=== PATIENT | female | born 1960 | race Caucasian/White ===

== ENCOUNTER 2016-09-25 08:02 | Emergency (ER) | payer MEDICARE, MEDICAID ==
--- NOTE | 2016-09-25 09:10 | ED ---
Complex/Multi-Sys Presentation - HPI Summary HPI Summary: Pt BRANT. States she was sitting in her living room after eating breakfast (food + 1 c coffee which is normal for her) and she all of a sudden felt anxious and confused. Noticed her fall alert necklace was asking her if she was okay and if she needed help. She denies pressing a button to summon this inquiry and denies falling or finding herself on the floor. She's not clear about following the events but believes the fall alert service called an ambulance for her as they showed up at her house shortly after. States she feels fine at this time - no pain, no LEY, no inabilities. Asked about her mental health issues and she reports she has bipolar d/o and depression - typically has depressive sx if she has any - denies h/o anxiety and has never felt this way before. Denies recent fall ,head injury. No known h/o seizures. When asked what she takes for MH issues, she reports effexor and abilify but denies depakote, lithium. Has had a cold past few days. Cough w/ production from PND - worse at night and has been disturbing her sleep. Denies fever, chills, ST, otalgia, rhinorrhea, N/ V/D, ab pain, CP, SOB. Tried some OTC cold medicine (orange liquid - not sure of name). Has taken this past couple of days w/o much relief. - History Of Current Complaint Chief Complaint: EDPsychosocial Time Seen by Provider: 09/25/16 08:22 Hx Obtained From: Patient - Allergies/Home Medications Allergies/Adverse Reactions: Allergies Allergy/AdvReac Type Severity Reaction Status Date / Time Bee Venom Allergy Hives Verified 12/29/14 15:54 KIWI Allergy SCRATCHY Uncoded 12/29/14 15:54 THROAT, RUNNY NOSE AND THROAT PMH/Surg Hx/FS Hx/Imm Hx Previously Healthy: No - reports "cold" sx past few days Endocrine/Hematology History: Reports: Hx Anemia - ON SUPPLEMENTS FOR Denies: Hx Anticoagulant Therapy, Hx Blood Disorders, Hx Blood Transfusions, Hx Diabetes, Hx Thyroid Disease, Hx Unexplained Bleeding Cardiovascular History: Denies: Hx Aneurysm, Hx Atrial Fibrillation, Hx Hypertension, Hx Myocardial Infarction, Hx Pacemaker/ICD Respiratory History: Reports: Hx Sleep Apnea - HAS A CPAP MACHINE BUT IS NOT USING IT AT THIS TIME- STATES NEEDS A CORD Denies: Hx Asthma, Hx Chronic Obstructive Pulmonary Disease (COPD) History: Denies: Hx Renal Disease Musculoskeletal History: Reports: Hx Arthritis - BOTH KNEE - tx'd w/ naproxen Sensory History: Reports: Hx Contacts or Glasses - GLASSES Denies: Hx Hearing Aid Opthamlomology History: Reports: Hx Contacts or Glasses - GLASSES Neurological History: Denies: Hx Dementia, Hx Seizures Psychiatric History: Reports: Hx Anxiety - ON MEDICATION FOR, Hx Depression - ON MEDICATION FOR Denies: Hx Panic Disorder, Hx Substance Abuse - Surgical History Surgery Procedure, Year, and Place: LEFT KNEE MENISCUS REPAIR- [facility] Hx Anesthesia Reactions: No Infectious Disease History: Denies: Hx Hepatitis, Hx Human Immunodeficiency Virus (HIV), Traveled Outside the [place] in Last 30 Days - Family History Known Family History: Positive: None - Social History Occupation: Unemployed Lives: Alone Alcohol Use: None Hx Substance Use: No Substance Use Type: Reports: None Hx Tobacco Use: No Smoking Status (MU): Never Smoked Tobacco Review of Systems Negative: Fever, Chills Negative: Photophobia, Blurred Vision, Diplopia, Drainage, Erythema ENT: Other - see HPI Negative: Palpitations, Chest Pain Negative: Shortness Of Breath, Cough Negative: Abdominal Pain, Vomiting, Diarrhea, Nausea Positive: no symptoms reported Musculoskeletal: Negative Skin: Negative Neurological: Other - see HPI Psychological: Other - see HPI All Other Systems Reviewed And Are Negative: Yes Physical Exam Triage Information Reviewed: Yes Vital Signs On Initial Exam: Initial Vitals Temp Pulse Resp BP Pulse Ox 99.8 F 83 16 120/68 97 09/25/16 08:05 09/25/16 08:05 09/25/16 08:05 09/25/16 08:05 09/25/16 08:05 Vital Signs Reviewed: Yes Appearance: Positive: Well-Appearing - staring in one direction for long periods w/o blinking - takes a few seconds to respond each time a questions is asked; flat affect, No Pain Distress, Well-Nourished Skin: Positive: Warm, Dry - no jocelyne signs of trauma (ie. ecchymosis, abrasion, erythema) Head/Face: Positive: Normal Head/Face Inspection - NTTP, no gross deformity Eyes: Positive: EOMI, LYNDSEY, Conjunctiva Clear ENT: Positive: Normal ENT inspection, Hearing grossly normal, Pharynx normal, TMs normal. Negative: Nasal congestion, Nasal drainage Dental: Negative: Gross Decay/Caries @, Abscess @ Neck: Positive: Supple, Nontender, No Lymphadenopathy Respiratory/Lung Sounds: Positive: Clear to Auscultation, Breath Sounds Present. Negative: Rales, Rhonchi, Stridor, Wheezes Cardiovascular: Positive: Normal, RRR, Pulses are Symmetrical in both Upper and Lower Extremities, S1, S2. Negative: Murmur, Rub, Leg Edema Left, Leg Edema Right Abdomen Description: Positive: Nontender, No Organomegaly, Soft Bowel Sounds: Positive: Present Psychiatric: Positive: Other - see GENERAL for details Diagnostics - Vital Signs Vital Signs Temp Pulse Resp BP Pulse Ox 09/25/16 08:20 81 94 09/25/16 08:19 121/70 09/25/16 08:05 99.8 F 83 16 120/68 97 - Laboratory Result Diagrams: 09/25/16 09:30 09/25/16 09:30 Lab Statement: Any lab studies that have been ordered have been reviewed, and results considered in the medical decision making process. Re-Evaluation - Re-Evaluation First Eval Change: Worse - pt got up to use bedside comode, returned to bed and then per nurse, could not respond verbally nor w/ physical commands - CT brain w/o was ordered STAT and neurology called - after reviewing case, Dr. Rodríguez declined calling a janae de jesus, offered trying 1mg ativan, add a CTA head and neck and stated he would be into the hospital in about 1 hour to see the pt. Phone call @ 9:17am. Agreed to call sooner if any changes for the worse. Second Eval Change: Improved - w/o medication, pt's verbal abilities to communicate returned at 9:31am. She reports recalling requests and asked what a "code de jesus" was as she heard us discussing this. Admits she felt "out of it". Presents w/ more energy, improved affect, responding quicker and laughing at times (almost giddy). Reviewed w/ neurology who is not concerned about CVA, TIA or seizure. Requested MH eval which Dr. Rodríguez, Dr. Gutierrez and myself agree is next best step. Complex Multi-Symp Course/Dx Course Of Treatment: EEG in 2014 reveals abnormal slow intermittent activity B/ L and symmetrically w/o focal epileptiform discharges. MRI in 2014 - empty sella otherwise normal. Noted h/o staring episodes. Neuro eval by Dr. Rodríguez does not believe pt is having CVA, TIA nor seizure - psych eval performed - pt may be having catatonic episodes of unknown origin - a topiramate level has been drawn and results pending although she does not appear to have topamax toxicity w/ improved neurological state within visit. Other subtances on tox screen normal. Pt to be d/c'd home w/ supervision of daughter over the weekend and close f/u w/ psych on Tuesday. Gave pt and daughter danger s/sx of when to return to ED. - Diagnoses Provider Diagnoses: Altered mental status, unspecified, URI (upper respiratory infection) - Physician Notifications Discussed Care Of Patient With: Dr. Gutierrez. Dr. Rodríguez (see notes for details ). Lelo - personnel research scientist - expressed concerns about return to home alone with having episodes of confusion and administering her own meds as she could potentially unintentianally overdose. MH personnel research scientist hears concerns and will try to contact family member for collateral. Discharge - Discharge Plan Condition: Stable Disposition: HOME Patient Education Materials: Upper Respiratory Infection (ED), Altered Mental Status (ED) Referrals: Miguel MALLORY,Lisa Flores [Medical Doctor] - Ronaldo Joseph MD [Primary Care Provider] - Additional Instructions: Your altered neurological status today was not clearly identified with tests today. However, a stroke and seizure were ruled out. It is important that you follow-up with your psychiatrist for further evaluation this week. Call Tuesday to schedule an appointment. A topamax level was assessed today - review results with psychiatrist next week. *If you develop loss of consciousness, difficulty breathing, chest pain, loss of bowels/bladder, fever, weakness, unexplained pain, choking/difficulty swallowing, change in vision, head injury or any traumatic injury, return to ED
[2016-09-25] MEDS ORDERED: LORazepam INJ* 2 MG/ML 1 ML VIAL IV PUSH ONE (09:19)
--- NOTE | 2016-09-25 09:26 | RAD ---
HISTORY: Unresponsive, anxiety COMPARISONS: MRI of the brain dated February 01, 2014 TECHNIQUE: Multiple contiguous axial CT scans were obtained of the head without intravenous contrast. FINDINGS: HEMORRHAGE/INFARCT: There is no hemorrhage or acute infarct. MASSES/SHIFT: There is no mass or shift. EXTRA-AXIAL SPACES: There are no extra-axial fluid collections. SULCI AND VENTRICLES: The sulci and ventricles are normal in size and position for the patient's stated age. CEREBRUM: There are no focal parenchymal abnormalities. BRAINSTEM: There are no focal parenchymal abnormalities. CEREBELLUM: There are no focal parenchymal abnormalities. VESSELS: The vessels are grossly normal. PARANASAL SINUSES: The paranasal sinuses are clear. ORBITS: The orbits are unremarkable. BONES AND SOFT TISSUE: No bone or soft tissue abnormalities are noted. OTHER: None IMPRESSION: NO ACUTE INTRACRANIAL PATHOLOGY.
[2016-09-25 09:35] LABS: Urine Bilirubin Negative (Negative); Urine Glucose Negative (Negative); Urine Nitrite Negative (Negative)
[2016-09-25 09:49] LABS: Hematocrit 40 % (35-47); Hemoglobin 13.2 g/dl (12.0-16.0); Mean Corpuscular HGB Conc 33 g/dl (31-36); Mean Corpuscular Hemoglobin 27 pg (27-31); Mean Corpuscular Volume 83 fL (80-97); Mean Platelet Volume 7 um3 (7.4-10.4); Red Blood Count 4.83 10^6/ul (4.0-5.4); Red Cell Distribution Width 14 % (10.5-15)
[2016-09-25 09:55] LABS: Benzodiazepine Urine Screen None Detected (None Detect)
[2016-09-25 09:57] LABS: Chloride 113 mmol/L (101-111); Potassium 3.8 mmol/L (3.5-5.0); Sodium 133 mmol/L (133-145)
--- NOTE | 2016-09-25 10:10 | RAD ---
HISTORY: Productive cough COMPARISONS: June 11, 2015 VIEWS: 2: Frontal and lateral views of the chest. FINDINGS: CARDIOMEDIASTINAL SILHOUETTE: The cardiomediastinal silhouette is normal. DOMENIC: The domenic are normal. PLEURA: The costophrenic angles are sharp. No pleural abnormalities are noted. LUNG PARENCHYMA: There is hyperinflation with flattening of the diaphragm and expansion of the AP diameter of the chest. ABDOMEN: The upper abdomen is clear. There is no subphrenic gas. BONES AND SOFT TISSUES: No bone or soft tissue abnormalities are noted. OTHER: None. IMPRESSION: HYPERINFLATION, CONSISTENT WITH COPD. NO ACTIVE CARDIOPULMONARY DISEASE.
[2016-09-25 10:19] LABS: Acetaminophen < 15 mcg/mL; Alcohol < 10 mg/dL (<10); Salicylate < 2.50 mg/dL (<30)
[2016-09-25 10:31] LABS: TSH (Thyroid Stimulating Horm) 0.95 mcIU/mL (0.34-5.60)
[2016-09-25 10:36] LABS: ALT 21 U/L (7-52); AST 17 U/L (13-39); Albumin 4.1 g/dL (3.2-5.2); Alkaline Phosphatase 95 U/L (34-104); Anion Gap -1 mmol/L (2-11); BUN/Creatinine Ratio 15.7 (8-20); Blood Urea Nitrogen 11 mg/dL (6-24); C Reactive Protein 9.56 mg/L (< 5.00); CO2 Carbon Dioxide 21 mmol/L (22-32); Calcium 9.4 mg/dL (8.6-10.3); EGFR African American 112.1 (>60); EGFR Non-African American 87.2 (>60); Glucose 123 mg/dL (70-100); Total Protein 7.1 g/dL (6.4-8.9)
[2016-09-25 10:49] VITALS: BP 115/72
--- NOTE | 2016-09-25 21:48 | CONS ---
CC: Dr. Uriostegui; Dr. Lisa Rivera CONSULTATION REPORT: DATE OF CONSULT: 09/25/16 REQUESTING PROVIDER: Laura Payan, Nurse Practitioner. PRIMARY CARE PHYSICIAN: Kyle Uriostegui MD PSYCHIATRIST: Dr. Lisa Rivera. HISTORY OF PRESENT ILLNESS: The patient is a 56-year-old right-handed female who this morning was in her living room eating breakfast. All of a sudden, she felt anxious and confused. She then noticed that someone through her alert necklace was asking her if she was okay. She is not sure and does not remember that if she activated the necklace alert. By the time she arrived to the hospital, she was fine with no weakness, headache, or confusion. She was using the bedside commode when the nurse noticed that she is not responding well while she remained awake. When evaluated by ED providers, she was awake, following the persons around her with her eyes, but was not following any commands and remained motionless. This was around 09:17, I was initially called for possibility of TIA or stroke, but I had a very low suspicion considering the extreme fluctuation of her symptoms and her reported to being awake, but not able to talk or move (motionless). The description of the events described her as being motion less was suspicious for catatonic state, therefore, I recommended to give 1 mg of Ativan to see if that resolves. Another evaluation by the ED providers about 10 minutes later (before Ativan was given), she was fine with no symptoms or abnormal findings. She had a recollection of events around her as she asked the staff about Code Snyder, so she must have heard it when she was unresponsive. By the time I arrived at the hospital around 10:10, she continued to be at her baseline. PAST MEDICAL HISTORY: Significant for bipolar disorder and she said she may have history of seizure, but she is not sure. PAST SURGICAL HISTORY: History of surgery on the left knee meniscus repair. HOME MEDICATIONS: Include: 1. Topamax 100 mg q.a.m. She is not sure why she is on that, but her psychiatrist prescribes that. 2. Effexor 100 mg. 3. Naproxen. 4. Abilify 30 mg p.o. at bedtime. ALLERGIES: BEE VENOM and KIWI. FAMILY HISTORY: The patient's mother had history of pancreatic cancer and as a result. Her father had history of cardiac problems. She has 3 brothers, 1 of them has probably history of hyperlipidemia. SOCIAL HISTORY: She lives alone. She does not smoke or use drugs or alcohol. REVIEW OF SYSTEMS: A complete review of systems was performed. Other than what is mentioned above is negative. PHYSICAL EXAMINATION: General: The patient is awake, alert, and oriented x3. She does not seem confused or in any stress and is smiling. However, during our conversation she sometimes closes her eyes and mumbles; and then when I call her again she says she is just tired . Vital signs: Blood pressure 121/70 , pulse rate 82, respiratory rate 18, and temperature 99.8. Neurologic: Pupils are symmetric and reactive to light. Extraocular movements are intact. Visual galeano are intact by confrontation. Face is symmetric. Facial muscles are strong and symmetric. Tongue is in midline. Palate elevates upwards. Strength is 5/5 throughout. There is no pronator drift. The sensation is intact to light touch and pinprick in the upper and lower extremities. Finger- to-nose, she has some action tremor bilaterally, but no dysmetria. Lungs: Clear. Heart: Regular rate and rhythms. Abdomen: Soft and nontender. DIAGNOSTIC STUDIES/LAB DATA: She has WBC of 8, hemoglobin 13.2, hematocrit 40, and platelets 246. INR 0.9. Urine toxicology is negative. Urine is clean. Sodium 133, BUN 11, and creatinine 0.7. AST 17, ALT 21, and alkaline phosphatase 95. C- reactive protein 9.56. TSH 0.95. Imaging: Brain CT was unremarkable. She had an MRI of the brain in January 2014 because of altered mental status, which shows empty sella and otherwise grossly normal exam. ASSESSMENT AND PLAN: The patient is a 56-year-old female with paroxysmal episodes of seemingly altered mental status with complete returning back to baseline with no residual confusion, since this morning. She had one episode while in ED, as described above, where she remained motionless and only following people around her with her eyes. Currently, her neurologic examination is completely normal. I do not have a high suspicion for transient ischemic attack in this patient because of the extreme fluctuation of her clinical symptoms from being complete motionless to normal within a few minutes. Also, seizure is unlikely as there is no postictal confusion. In addition, during complex partial seizures the patients usually look confused but it is rare for them to remain motionless which is more reminiscent of a catatonic state. I find some mention of staring episodes in her previous records. If these events are frequent, then she can be referred for video EEG monitoring as outpatient to characterized these events. Considering the psychiatric history of the patient and the report of anxiety before onset of these episodes this morning, she may benefit from a mental health evaluation while in the ED. [id number], the patient can be observed for a while to assure no recurrence of the episodes. [id number]/[facility] #: [id number]
== END 2016-09-25 12:43 | disposition home or self-care (01) ==
LOC: ED 08:02
DX: R41.82 Altered mental status, unspecified (principal); J06.9 Acute upper respiratory infection, unspecified; F41.9 Anxiety disorder, unspecified; D64.9 Anemia, unspecified; F31.9 Bipolar disorder, unspecified
CPT/HCPCS: 36415; 70450; 71020; 80053; 80307; 80320; 80329; 81003; 83605; 84443; 84702; 85025; 86140; 93005; 96374; 99285; G0480; J2060

== ENCOUNTER 2016-10-08 19:41 | Inpatient (IN) | payer MEDICARE, MEDICAID ==
[2016-10-08 20:49] LABS: Hematocrit 40 % (35-47); Hemoglobin 12.9 g/dl (12.0-16.0); Mean Corpuscular HGB Conc 32 g/dl (31-36); Mean Corpuscular Hemoglobin 27 pg (27-31); Mean Corpuscular Volume 83 fL (80-97); Mean Platelet Volume 7 um3 (7.4-10.4); Red Blood Count 4.78 10^6/ul (4.0-5.4); Red Cell Distribution Width 14 % (10.5-15); White Blood Count 7.6 10^3/ul (3.5-10.8)
[2016-10-08 21:05] LABS: ALT 33 U/L (7-52); AST 23 U/L (13-39); Albumin 4.1 g/dL (3.2-5.2); Alkaline Phosphatase 94 U/L (34-104); Anion Gap 9 mmol/L (2-11); BUN/Creatinine Ratio 20.5 (8-20); Blood Urea Nitrogen 16 mg/dL (6-24); CO2 Carbon Dioxide 21 mmol/L (22-32); Calcium 9.5 mg/dL (8.6-10.3); Chloride 106 mmol/L (101-111); Globulin 3.3 g/dL (2-4); Glucose 126 mg/dL (70-100); Potassium 3.4 mmol/L (3.5-5.0); Sodium 136 mmol/L (133-145); Total Protein 7.4 g/dL (6.4-8.9)
[2016-10-08 21:26] LABS: Acetaminophen < 15 mcg/mL; Alcohol < 10 mg/dL (<10); Salicylate < 2.50 mg/dL (<30)
[2016-10-08 21:47] LABS: Urine Bacteria Absent (Absent); Urine Bilirubin Negative (Negative); Urine Glucose Negative (Negative); Urine Nitrite Negative (Negative)
[2016-10-08 21:57] LABS: Benzodiazepine Urine Screen None Detected (None Detect)
--- NOTE | 2016-10-09 00:20 | ED ---
Miguel Cook Karl, scribed for Ismael Gresham MD on 10/08/16 at 2017 . Psychiatric Complaint - HPI Summary HPI Summary: Pt is a 56 y/o female that presents to the ED c/o anxiety and confusion. Pt reported that she started feeling anxious and confused at approx 18:30, and she normally takes Abilify. Pt reported that she was seen here several weeks ago for a similar ailment and her medication has changed since. Pt only pain reported was muscle pain in her left shoulder. Pt stated she has been sleeping fine and that her manic episodes have "calmed down." Pt denied CP and abd pain. Hx: anxiety, depression, bipolar disorder. - History Of Current Complaint Chief Complaint: EDGeneral Time Seen by Provider: 10/08/16 20:07 Hx Obtained From: Patient Onset/Duration: Gradual Onset Timing: Constant Severity Initially: Mild Severity Currently: Mild Character: Anxious Aggravating Factor(s): Other - medication change Alleviating Factor(s): Nothing - Allergies/Home Medications Allergies/Adverse Reactions: Allergies Allergy/AdvReac Type Severity Reaction Status Date / Time Bee Venom Allergy Hives Verified 12/29/14 15:54 KIWI Allergy SCRATCHY Uncoded 12/29/14 15:54 THROAT, RUNNY NOSE AND THROAT PMH/Surg Hx/FS Hx/Imm Hx Endocrine/Hematology History: Reports: Hx Anemia - ON SUPPLEMENTS FOR Denies: Hx Anticoagulant Therapy, Hx Blood Disorders, Hx Blood Transfusions, Hx Diabetes, Hx Thyroid Disease, Hx Unexplained Bleeding Cardiovascular History: Denies: Hx Aneurysm, Hx Atrial Fibrillation, Hx Hypertension, Hx Myocardial Infarction, Hx Pacemaker/ICD Respiratory History: Reports: Hx Sleep Apnea - HAS A CPAP MACHINE BUT IS NOT USING IT AT THIS TIME- STATES NEEDS A CORD Denies: Hx Asthma, Hx Chronic Obstructive Pulmonary Disease (COPD) History: Denies: Hx Renal Disease Musculoskeletal History: Reports: Hx Arthritis - BOTH KNEE - tx'd w/ naproxen Sensory History: Reports: Hx Contacts or Glasses - GLASSES Denies: Hx Hearing Aid Opthamlomology History: Reports: Hx Contacts or Glasses - GLASSES Neurological History: Denies: Hx Dementia, Hx Seizures Psychiatric History: Reports: Hx Anxiety - ON MEDICATION FOR, Hx Depression - ON MEDICATION FOR Denies: Hx Eating Disorder, Hx Panic Disorder, Hx of Violent Episodes Against Others, Hx Substance Abuse - Surgical History Surgery Procedure, Year, and Place: LEFT KNEE MENISCUS REPAIR- [facility] Hx Anesthesia Reactions: No Infectious Disease History: No Infectious Disease History: Denies: Hx Hepatitis, Hx Human Immunodeficiency Virus (HIV), Traveled Outside the [place] in Last 30 Days - Family History Known Family History: Positive: Other - schizophrenia, bipolar disorder, depression, alcohol abuse, breast CA - Social History Alcohol Use: None Hx Substance Use: No Substance Use Type: Reports: None Hx Tobacco Use: No Smoking Status (MU): Never Smoked Tobacco Review of Systems Constitutional: Negative Eyes: Negative ENT: Negative Cardiovascular: Negative Respiratory: Negative Gastrointestinal: Negative Genitourinary: Negative Positive: Myalgia - left shoulder Skin: Negative Neurological: Negative Positive: Anxious All Other Systems Reviewed And Are Negative: Yes Physical Exam Triage Information Reviewed: Yes Vital Signs On Initial Exam: Initial Vitals Temp Pulse Resp BP Pulse Ox 98.3 F 90 18 115/72 96 10/08/16 20:06 10/08/16 20:06 10/08/16 20:06 10/08/16 20:06 10/08/16 20:06 Vital Signs Reviewed: Yes Appearance: Positive: Well-Appearing, No Pain Distress Skin: Positive: Warm, Skin Color Reflects Adequate Perfusion, Dry Head/Face: Positive: Normal Head/Face Inspection Eyes: Positive: EOMI, LYNDSEY ENT: Positive: Normal ENT inspection Neck: Positive: Supple, Nontender Respiratory/Lung Sounds: Positive: Clear to Auscultation, Breath Sounds Present Cardiovascular: Positive: RRR Abdomen Description: Positive: Nontender, Soft Bowel Sounds: Positive: Present Musculoskeletal: Positive: Normal, Strength/ROM Intact Neurological: Positive: Normal, Sensory/Motor Intact, Alert, Oriented to Person Place, Time Psychiatric: Positive: Other - Periods of catatonia, responds to pain during that time - [place] Coma Scale Coma Scale Total: 15 Diagnostics - Vital Signs Vital Signs Temp Pulse Resp BP Pulse Ox 10/08/16 20:06 98.3 F 90 18 115/72 96 - Laboratory Lab Results: Lab Results 10/08/16 10/08/16 10/08/16 Range/Units 20:40 20:40 21:25 WBC 7.6 (3.5-10.8) 10^3/ul RBC 4.78 (4.0-5.4) 10^6/ul Hgb 12.9 (12.0-16.0) g/dl Hct 40 (35-47) % MCV 83 (80-97) fL MCH 27 (27-31) pg MCHC 32 (31-36) g/dl RDW 14 (10.5-15) % Plt Count 280 (150-450) 10^3/ul MPV 7 L (7.4-10.4) um3 Neut % (Auto) 66.5 (38-83) % Lymph % (Auto) 22.6 L (25-47) % Rich % (Auto) 8.4 (1-9) % Eos % (Auto) 2.0 (0-6) % Baso % (Auto) 0.5 (0-2) % Absolute Neuts (auto) 5.1 (1.5-7.7) 10^3/ul Absolute Lymphs (auto) 1.7 (1.0-4.8) 10^3/ul Absolute Monos (auto) 0.6 (0-0.8) 10^3/ul Absolute Eos (auto) 0.1 (0-0.6) 10^3/ul Absolute Basos (auto) 0 (0-0.2) 10^3/ul Absolute Nucleated RBC 0 10^3/ul Nucleated RBC % 0 Sodium 136 (133-145) mmol/L Potassium 3.4 L (3.5-5.0) mmol/L Chloride 106 (101-111) mmol/L Carbon Dioxide 21 L (22-32) mmol/L Anion Gap 9 (2-11) mmol/L BUN 16 (6-24) mg/dL Creatinine 0.78 (0.51-0.95) mg/dL Est GFR ( Amer) 99.0 (>60) Est GFR (Non-Af Amer) 77.0 (>60) BUN/Creatinine Ratio 20.5 H (8-20) Glucose 126 H (70-100) mg/dL Calcium 9.5 (8.6-10.3) mg/dL Total Bilirubin 0.50 (0.2-1.0) mg/dL AST 23 (13-39) U/L ALT 33 (7-52) U/L Alkaline Phosphatase 94 (34-104) U/L Total Protein 7.4 (6.4-8.9) g/dL Albumin 4.1 (3.2-5.2) g/dL Globulin 3.3 (2-4) g/dL Albumin/Globulin Ratio 1.2 (1-3) TSH 0.90 (0.34-5.60) mcIU/mL Urine Color Yellow Urine Appearance Cloudy Urine pH 5.0 (5-9) Ur Specific Holden 1.011 (1.010-1.030) Urine Protein Negative (Negative) Urine Ketones Negative (Negative) Urine Blood 2+ H (Negative) Urine Nitrate Negative (Negative) Urine Bilirubin Negative (Negative) Urine Urobilinogen Negative (Negative) Ur Leukocyte Esterase Trace H (Negative) Urine WBC (Auto) Trace(0-5/hpf) (Absent) Urine RBC (Auto) Trace(0-2/hpf) (Absent) Ur Squamous Epith Cells Present H (Absent) Urine Bacteria Absent (Absent) Urine Glucose Negative (Negative) Salicylates < 2.50 (<30) mg/dL Urine Opiates Screen (None Detect) Acetaminophen < 15 mcg/mL Ur Barbiturates Screen (None Detect) Ur Phencyclidine Scrn (None Detect) Ur Amphetamines Screen (None Detect) U Benzodiazepines Scrn (None Detect) Urine Cocaine Screen (None Detect) U Cannabinoids Screen (None Detect) Serum Alcohol < 10 (<10) mg/dL 10/08/16 Range/Units 21:25 WBC (3.5-10.8) 10^3/ul RBC (4.0-5.4) 10^6/ul Hgb (12.0-16.0) g/dl Hct (35-47) % MCV (80-97) fL MCH (27-31) pg MCHC (31-36) g/dl RDW (10.5-15) % Plt Count (150-450) 10^3/ul MPV (7.4-10.4) um3 Neut % (Auto) (38-83) % Lymph % (Auto) (25-47) % Rich % (Auto) (1-9) % Eos % (Auto) (0-6) % Baso % (Auto) (0-2) % Absolute Neuts (auto) (1.5-7.7) 10^3/ul Absolute Lymphs (auto) (1.0-4.8) 10^3/ul Absolute Monos (auto) (0-0.8) 10^3/ul Absolute Eos (auto) (0-0.6) 10^3/ul Absolute Basos (auto) (0-0.2) 10^3/ul Absolute Nucleated RBC 10^3/ul Nucleated RBC % Sodium (133-145) mmol/L Potassium (3.5-5.0) mmol/L Chloride (101-111) mmol/L Carbon Dioxide (22-32) mmol/L Anion Gap (2-11) mmol/L BUN (6-24) mg/dL Creatinine (0.51-0.95) mg/dL Est GFR ( Amer) (>60) Est GFR (Non-Af Amer) (>60) BUN/Creatinine Ratio (8-20) Glucose (70-100) mg/dL Calcium (8.6-10.3) mg/dL Total Bilirubin (0.2-1.0) mg/dL AST (13-39) U/L ALT (7-52) U/L Alkaline Phosphatase (34-104) U/L Total Protein (6.4-8.9) g/dL Albumin (3.2-5.2) g/dL Globulin (2-4) g/dL Albumin/Globulin Ratio (1-3) TSH (0.34-5.60) mcIU/mL Urine Color Urine Appearance Urine pH (5-9) Ur Specific Holden (1.010-1.030) Urine Protein (Negative) Urine Ketones (Negative) Urine Blood (Negative) Urine Nitrate (Negative) Urine Bilirubin (Negative) Urine Urobilinogen (Negative) Ur Leukocyte Esterase (Negative) Urine WBC (Auto) (Absent) Urine RBC (Auto) (Absent) Ur Squamous Epith Cells (Absent) Urine Bacteria (Absent) Urine Glucose (Negative) Salicylates (<30) mg/dL Urine Opiates Screen None detected (None Detect) Acetaminophen mcg/mL Ur Barbiturates Screen None detected (None Detect) Ur Phencyclidine Scrn None detected (None Detect) Ur Amphetamines Screen None detected (None Detect) U Benzodiazepines Scrn None detected (None Detect) Urine Cocaine Screen None detected (None Detect) U Cannabinoids Screen None detected (None Detect) Serum Alcohol (<10) mg/dL Result Diagrams: 10/08/16 20:40 10/08/16 20:40 Lab Statement: Any lab studies that have been ordered have been reviewed, and results considered in the medical decision making process. Course/Dx - Course Assessment/Plan: Pt medically cleared for mental health evaluation at 21:29. ADMIT MHU STABLE AFTER MHE - Differential Dx/Clinical Impression Provider Diagnosis: Mental health problem Discharge - Discharge Plan Condition: Stable Disposition: ADMITTED TO [facility] Referrals: Ronaldo Joseph MD [Primary Care Provider] - The documentation as recorded by the Miguel ramirez Karl accurately reflects the service I personally performed and the decisions made by , Ismael Gresham MD.
[2016-10-09] MEDS ORDERED: Al Hydrox/Mg Hydrox/Simet LIQ* 30 ML UDC PO PRN (02:06)
[2016-10-09] MEDS: Vitamin THERAPEUTIC TAB PO SCH (09:07)
[2016-10-09] MEDS: CMC:Saliva Substitute (NF) 1 SPRAY BTL MT PRN (13:27)
--- NOTE | 2016-10-09 15:47 | ADMNOTE ---
Identification - Identify Employment Status: Employed Hx Psychiatric Hospitalization: Yes - several Prior Psychiatric Diagnosis: Bipolar Disorder Arrived to Hospital Via: EMS History - Objective HPI: Mrs. Ward is a 56-year-old , employed, domiciled female who was brought in by EMS from home because of confusion and high anxiety and she was admitted on voluntary status to the mental health unit. CHIEF COMPLAINT: "I feel like somebody is stalking me!" HISTORY OF PRESENT ILLNESS: The patient has an established history of bipolar 1 disorder. She is followed at [facility] by Dr. Lisa Rivera. She was seen in the emergency room of this hospital about 2 weeks prior because of complaints of high anxiety. She was referred to her outpatient psychiatrist whom she saw on , 10/07/16. Per the patient, Dr. Rivera reportedly decreased her Effexor to 150 mg daily and instructed her to take the Abilify as needed instead of the standing dose of 20 mg daily. Following the visit with Dr. Rivera, her previous difficulties with insomnia improved, but she continued to feel labile in her mood, irritable and to have increased energy (cooking food for the latter day, going from place to place and knocking on strangers' door. She reported experiences of hearing the voices of her grandchildren chanting "killer clown, killer clown!" She is convinced that she is being stalked. She gave an example of meeting a gentleman somewhere in town and later seeing the same person at her place of work and again seeing that person last night when she came to the hospital. The patient has also been hearing voices telling her to "relax." Her daughter and field court researcher confirmed that she had not been sleeping well, had been calling people at all hours of the night and not making much sense. Her relatives are unsure if she was taking her prescribed medications. Una additionally described excessive worrying, irrational fears, muscle tension and irritable. She cites stressors of having a daughter and her who are both depressed and shoulder and knee pain. REVIEW OF PSYCHIATRIC SYMPTOMS: She denies periods of persistently depressed mood but vividly remembers past periods of waldo. She endorses delusions of being followed and hearing voices. She described excessive anxiety related to these phenomena. She denies panic attacks. She denies suicidal ideation or urges to self-mutilate and she contracted for safety. PAST PSYCHIATRIC HISTORY: She has history of previous inpatient psychiatric admissions for treatment of waldo. She is not able to recall how many but asserts that her most recent admission was well over over 10 years ago. She has diagnosis with bipolar 1 disorder. She is followed at [facility] with Dr. Rivera. She recalls past trials of lithium. TRAUMA/ABUSE HISTORY: The patient denies. LEGAL HISTORY: The patient denies. FAMILY HISTORY: The patient reports family psychiatric history of depression in her son and daughter, bipolar disorder in her biological mother. Her father in his sleep from a myocardial infarction. PERSONAL AND SOCIAL HISTORY: The patient has been for 34 years, 14 of which she has been from her . She has 4 adult daughters, one who is 35 from a previous relationship and 2 daughters and a son with her . She has 7 grandchildren. 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. She is advent. 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 She receives SSI and SSD for psychiatric disabilities. Past Medical History: Remarkable for arthritis of the knee, iron deficiency anemia, shoulder pain and uterine polyps. PAST SURGICAL HISTORY: Left knee replacement. The patient is followed at [facility] by Dr. Ronaldo Josehp and also sees CAR HEAD LINER INSTALLER, Dr. Reza Zamora. Exam Appearance: Obese Hygiene: Normal Grooming: Well Kept Psychomotor Activities: Abnormal-Decreased Exhibits Abnormal Movement: No Attitude and Relatedness: Psychotically Related Eye Contact: Good - intense stare - Speech Quality: Unpressured Latencies: Long Quantity: Appropriate Patient's Decription of Mood: "Anxious" Observed Affect: Non-labile Affect Consistent with: Dysphoria Patient's Thought Process: Disorganized, Over Inclusive Thought Content: Yes Paranoid Ideation, No Passive Wish, No Suicidal Planning, No Homicidal Ideation Experiencing Hallucinations: No, Sensorium is Clear Type of Hallucinations: Visual: No, Auditory: Yes, Command: No Level of Consciousness: Alert Orientation: Yes Intact Impulse Control: Intact Insight and Judgement: Impaired Impression - Impression Clinical Impression: A 56-year-old woman with history of previous psychiatric hospitalization, previous diagnosis of bipolar 1 disorder, who was admitted in a decompensated manic state with psychotic features. Her relatives are not sure if she was taking her prescribed medication. Medical history is noncontributory. There is family history of mood disorder in first-degree relatives. She described stressors of concerns about her daughter's well being and and limb pain. On interview, she presented as psychotically related and clearly described manic/ psychotic symptoms of decreased need for sleeping, increased goal directedness, delusional thinking, and perceptual disturbances. The patient merits inpatient level of care for safety, observation, evaluation and treatment. She merits inpatient level of care for safety, evaluation and treatment. Inpatient DSM-IV Dx: Bipolar 1 disorder, current episode manic, severe, with psychotic features. Unspecified anxiety disorder. Merits Inpatient Hospitalization: Yes Plan - Treatment Plan Continued Medication Management: Continue Outpt Medication Medications: Current Medications Acetaminophen (Tylenol Tab*) 650 mg PO Q4H PRN PRN Reason: PAIN or TEMP > 101 F Al Hydrox/Mg Hydrox/Simethicone (Maalox Plus*) 30 ml PO Q4H PRN PRN Reason: INDIGESTION Multivitamins (Theragran Tab*) 1 tab PO DAILY STEPHANIE Last Admin: 10/09/16 09:07 Dose: 1 tab Saliva Substitute (Biotene Moisturizing Mouth (Nf)) 1 spray MT Q3H PRN PRN Reason: DRY MOUTH Last Admin: 10/09/16 13:27 Dose: 1 spray - Discharge Plan Discharge Plan: Outpatient [facility]
[2016-10-09] MEDS: ARIPiprazole TAB* 20 MG PO SCH (21:29)
--- NOTE | 2016-10-09 21:42 | HP ---
HISTORY AND PHYSICAL: DATE OF ADMISSION: 10/09/16 IDENTIFYING DATA: Mrs. Ward is a 56-year-old , employed, domiciled female who was brought in by EMS from home because of confusion and high anxiety and she was admitted on voluntary status to the mental health unit. CHIEF COMPLAINT: "I feel like somebody is stalking me!" HISTORY OF PRESENT ILLNESS: The patient has an established history of bipolar 1 disorder. She is followed at [facility] by Dr. Lisa Rivera. She was seen in the emergency room of this hospital about 2 weeks prior because of complaints of high anxiety. She was referred to her outpatient psychiatrist whom she saw on , 10/07/16. Per the patient, Dr. Rivera reportedly decreased her Effexor to 150 mg daily and instructed her to take the Abilify as needed instead of the standing dose of 20 mg daily. Following the visit with Dr. Rivera, her previous difficulties with insomnia improved, but she continued to feel labile in her mood, irritable and to have increased energy (cooking food for the yarsani, going from place to place and knocking on strangers' door. She reported experiences of hearing the voices of her grandchildren chanting "killer clown, killer clown!" She is convinced that she is being stalked. She gave an example of meeting a gentleman somewhere in town and later seeing the same person at her place of work and again seeing that person last night when she came to the hospital. The patient has also been hearing voices telling her to "relax." Her daughter and route process administrator confirmed that she had not been sleeping well, had been calling people at all hours of the night and not making much sense. Her relatives are unsure if she was taking her prescribed medications. Una additionally described excessive worrying, irrational fears, muscle tension and irritable. She cites stressors of having a daughter and her who are both depressed and shoulder and knee pain. REVIEW OF PSYCHIATRIC SYMPTOMS: She denies periods of persistently depressed mood but vividly remembers past periods of waldo. She endorses delusions of being followed and hearing voices. She described excessive anxiety related to these phenomena. She denies panic attacks. She denies suicidal ideation or urges to self-mutilate and she contracted for safety. PAST PSYCHIATRIC HISTORY: She has history of previous inpatient psychiatric admissions for treatment of waldo. She is not able to recall how many but asserts that her most recent admission was well over over 10 years ago. She has diagnosis with bipolar 1 disorder. She is followed at [facility] with Dr. Rivera. She recalls past trials of lithium. TRAUMA/ABUSE HISTORY: The patient denies. LEGAL HISTORY: The patient denies. PAST MEDICAL HISTORY: Remarkable for arthritis of the knee, iron deficiency anemia, shoulder pain and uterine polyps. PAST SURGICAL HISTORY: Left knee replacement. The patient is followed at [facility] by Dr. Ronaldo Joseph and also sees CHEMICAL RADIATION TECHNICIAN, Dr. Reza Zamora. FAMILY HISTORY: The patient reports family psychiatric history of depression in her son and daughter, bipolar disorder in her biological mother. Her father in his sleep from a myocardial infarction. PERSONAL AND SOCIAL HISTORY: The patient has been for 34 years, 14 of which she has been from her . She has 4 adult daughters, one who is 35 from a previous relationship and 2 daughters and a son with her . She has 7 grandchildren. 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 She is anabaptism. 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 She receives SSI and SSD for psychiatric disabilities. REVIEW OF MEDICAL SYMPTOMS: Knee pain and unsteady gait. PHYSICAL EXAMINATION GENERAL: She is a moderately obese 56-year-old white female, who does not appear to be in any acute physical distress. She is alert and oriented x3. HEENT: Head: Atraumatic, normocephalic, symmetrical. Eyes: PERRLA. Tympanic membranes intact. Sclerae anicteric. Conjunctivae clear. NECK: Trachea midline, freely mobile. No cervical lymphadenopathy. No nuchal rigidity. LUNGS: Clear to auscultation bilaterally. HEART: Regular rate and rhythm. S1, S2. No murmur, gallops, or rubs. BREASTS: Exam not performed. ABDOMEN: Obese, soft, nontender. No masses, organomegaly, or rebound tenderness. No scars noted. Active bowel sounds in all 4 quadrants. EXTREMITIES: No clubbing, cyanosis, edema or varicosities noted. Pulses are equal and adequate in all 4 extremities. NEUROLOGIC: Cranial nerves II through XII intact. Cerebellar function intact. Muscle strength is grade 5/5 in all 4 extremities. STRUCTURAL EXAM: The patient examined in both supine and upright positions. No gross AP or lateral asymmetry. The patient has an unsteady gait related to knee pain. SKIN: Skin texture, turgor, and pigmentation are all within normal limits. LABORATORY DATA: Laboratories on admission, her CBC is within normal limits. Complete metabolic panel shows potassium of 3.4, carbon dioxide of 21. BUN/ creatinine ratio of 20.5. Nonfasting glucose of 126. Urinalysis shows 2+ blood , trace of leukocyte esterase, and squamous epithelial cells. Urine toxicology screen is negative for all the tested substances. MENTAL STATUS EXAM: Finds a moderately obese 56-year-old white female with glasses and long jones hair, who looks older than her stated age. She is adequately groomed and casually dressed. She is psychotically-related with long latencies in her speech. She is guarded, suspicious. Her affect is flat. Mood is anxious. She endorses hearing voices. She denies suicidal or homicidal ideation and she contracts for safety. Insight and judgement are impaired. Impulse control is fair in this setting. She is alert. She is oriented to time, place, person. Attention, memory, and concentration are all poor. SUMMARY: A 56-year-old woman with history of previous psychiatric hospitalization, previous diagnosis of bipolar 1 disorder, who was admitted in a decompensated manic state with psychotic features. Her relatives are not sure if she was taking her prescribed medication. Medical history is noncontributory. There is family history of mood disorder in first-degree relatives. She described stressors of concerns about her daughter's well being and and limb pain. On interview, she presented as psychotically related and clearly described manic/psychotic symptoms of decreased need for sleeping, increased goal directedness, delusional thinking, and perceptual disturbances. The patient merits inpatient level of care for safety, observation, evaluation and treatment. DIAGNOSTIC IMPRESSIONS: Bipolar 1 disorder, current episode manic, severe, with psychotic features. Unspecified anxiety disorder. TREATMENT PLAN: Admit to mental health unit, 15-minute checks, full code status. Legal status is emergency. Initiate comprehensive milieu, individual and group psychotherapeutic support. Medication management will involve restarting the patient on a standing dose of Abilify 20 mg at bedtime, continuing the Effexor XR 150 mg daily and consulting with Dr. Lisa Rivera at [facility] on Tuesday. Discharge planning will involve coordination of aftercare with [facility]. The patient's strengths are relative good health, ability to work, housing and having family support. Her liabilities: significant family history of mental illnesses. [id number]/CPS #: [id number]
[2016-10-10] MEDS: CMC:Saliva Substitute (NF) 1 SPRAY BTL MT PRN ×4 (03:35→21:38)
[2016-10-10] MEDS: Vitamin THERAPEUTIC TAB PO SCH (08:51)
[2016-10-10] MEDS: Venlafaxine EXT RELEASE CAP* 75 MG PO SCH (08:52)
[2016-10-10] MEDS: Multivitamins/Minerals TAB PO SCH (08:52)
[2016-10-10] MEDS: Topiramate TAB(*) 100 MG PO SCH (08:52)
[2016-10-10] MEDS: ARIPiprazole TAB* 20 MG PO SCH (21:37)
[2016-10-11] MEDS: CMC:Saliva Substitute (NF) 1 SPRAY BTL MT PRN ×2 (03:02→21:32)
[2016-10-11] MEDS: Topiramate TAB(*) 100 MG PO SCH (09:40)
[2016-10-11] MEDS: Multivitamins/Minerals TAB PO SCH (09:40)
[2016-10-11] MEDS: Venlafaxine EXT RELEASE CAP* 75 MG PO SCH (09:40)
[2016-10-11] MEDS: Vitamin THERAPEUTIC TAB PO SCH (09:44)
--- NOTE | 2016-10-11 13:58 | PN ---
MHU: Group Therapy Note - Service Type Service Type: 10483 Group Psychotherapy - Cognitive Behavioral Group Therapy ( CBT):Patient presented in CBT programming as disorganized and disruptive in discussion and needed repeated redirection to attend to presented materials.
--- NOTE | 2016-10-11 15:53 | PN ---
Subjective - Subjective Service Type: [id number] Hosp care 25 min moderate complexity Subjective: Una reports remission of AH since yesterday. She denies any dangerous intent or plan. She has agreed to treatment of waldo and psychosis with Zyprexa 10 mg qHS, Ativan 1 mg bid, and Depakote ER 1000 mg qHS. Objective - Appearance Appearance: Obese Dysmorphic Features: No Hygiene: Normal Grooming: Disheveled - Behavior Psychomotor Activities: Normal Exhibits Abnormal Movement: No - Attitude and Relatedness Attitude and Relatedness: Psychotically Related Eye Contact: Fair - Speech Quality: Unpressured Latencies: Normal Quantity: Appropriate - Mood Patient's Decription of Mood: "Good" - Affect Observed Affect: Constricted - Thought Process Patient's Thought Process: Impoverished Thought Content: No Passive Wish, No Suicidal Planning, No Homicidal Ideation, No Paranoid Ideation - Sensorium Experiencing Hallucinations: No, Sensorium is Clear Type of Hallucinations: Visual: No, Auditory: No - none since yesterday, Command : No - Level of Consciousness Orientation: Yes Intact, Yes Orientated to Time, Yes Orientated to Place, Yes Orientated to Person - Impulse Control Impulse Control: Intact - Insight and Judgement Insight and Judgement: Poor - Group Participation Particating in Group Activities: Yes - Medication Management Medication Management Adherence: Yes Assessment - Assessment Merits Inpatient Hospitalization: For Immediate Safety, For Stabilization, To Initiate Treatment, For Discharge Planning, Pending Safe DC Plan Inpatient DSM-IV Dx: Bipolar 1 disorder, current episode manic, severe, with psychotic features. Unspecified anxiety disorder. Clinical Impression: Ms Bonner is a 56 year-old woman with a diagnosis of type I bipolar disorder, currently manic with psychosis, perhaps due to lapse from meds. She has agreed to effective medication therapy against waldo and psychosis. Plan - Plan Treatment Plan: Name: UNA BONNER Birthdate: 1960 [id number] Treat waldo and psychosis with Zyprexa 10 mg at bedtime, Depakote ER 1000 mg at bedtime, and Ativan 1 mg bid. We will encourage groups and milieu. Aftercare will be return to care at [facility]. Continued Medication Management: Different Medication Medications: Current Medications Acetaminophen (Tylenol Tab*) 650 mg PO Q4H PRN PRN Reason: PAIN or TEMP > 101 F Al Hydrox/Mg Hydrox/Simethicone (Maalox Plus*) 30 ml PO Q4H PRN PRN Reason: INDIGESTION Multivitamins (Theragran Tab*) 1 tab PO DAILY [facility] Last Admin: 10/11/16 09:44 Dose: Not Given Multivitamins/Minerals (Theragran/Minerals Tab*) 1 tab PO DAILY [facility] Last Admin: 10/11/16 09:40 Dose: 1 tab Saliva Substitute (Biotene Moisturizing Mouth (Nf)) 1 spray MT Q3H PRN PRN Reason: DRY MOUTH Last Admin: 10/11/16 03:02 Dose: 1 spray Topiramate (Topamax(*)) 100 mg PO QAM [facility] Last Admin: 10/11/16 09:40 Dose: 100 mg - Discharge Plan Discharge Plan: Outpatient Follow Up Outpatient Program: [facility]
[2016-10-11] MEDS: Divalproex ER TAB(*) 500 MG PO SCH (21:08)
[2016-10-11] MEDS: OLANzapine TAB*ODT* 10 MG TAB PO SCH (21:08)
[2016-10-11] MEDS: LORazepam TAB(*) 1 MG PO SCH (21:08)
[2016-10-12] MEDS: CMC:Saliva Substitute (NF) 1 SPRAY BTL MT PRN ×2 (03:07→14:24)
[2016-10-12] MEDS: Topiramate TAB(*) 100 MG PO SCH (09:39)
[2016-10-12] MEDS: Vitamin THERAPEUTIC TAB PO SCH (09:39)
[2016-10-12] MEDS: LORazepam TAB(*) 1 MG PO SCH ×2 (09:40→21:07)
[2016-10-12] MEDS: Multivitamins/Minerals TAB PO SCH (09:40)
--- NOTE | 2016-10-12 12:49 | PN ---
Subjective - Subjective Service Type: [id number] Hosp care 15 min low complexity Subjective: Una has no complaints today. She has a fixed gaze, but seems a bit less fixed than yesterday. CPAP was ordered for her last evening. Objective - Appearance Appearance: Obese Dysmorphic Features: No Hygiene: Normal Grooming: Disheveled - Behavior Psychomotor Activities: Normal Exhibits Abnormal Movement: No - Attitude and Relatedness Attitude and Relatedness: Psychotically Related Eye Contact: Good - intense - Mood Patient's Decription of Mood: "Good" - Affect Observed Affect: Good Affect Consistent with: Euthymia - Thought Process Patient's Thought Process: Coherent, Goal Directed, Impoverished Thought Content: No Passive Wish, No Suicidal Planning, No Homicidal Ideation, No Paranoid Ideation - Sensorium Experiencing Hallucinations: No, Sensorium is Clear Type of Hallucinations: Visual: No, Auditory: No, Command: No - Level of Consciousness Level of Consciousness: Alert Orientation: Yes Intact, Yes Orientated to Time, Yes Orientated to Place, Yes Orientated to Person - Impulse Control Impulse Control: Intact - Insight and Judgement Insight and Judgement: Fair - Group Participation Particating in Group Activities: Yes - Medication Management Medication Management Adherence: Yes Assessment - Assessment Merits Inpatient Hospitalization: For Stabilization, To Initiate Treatment, For Discharge Planning, Pending Safe DC Plan Inpatient DSM-IV Dx: Bipolar 1 disorder, current episode manic, severe, with psychotic features. Unspecified anxiety disorder. Clinical Impression: Ms Bonner is a 56 year-old woman with a diagnosis of type I bipolar disorder, currently manic with psychosis, perhaps due to lapse from meds. She has agreed to effective medication therapy against waldo and psychosis. 10.12.16 No complaints. Med adherent. Pleasant and collaborative despite continued psychotic relating style. Expect improvements daily with current anti manic/psychotic medication regimen. Plan - Plan Treatment Plan: Name: UNA BONNER Birthdate: 1960 [id number] Treat waldo and psychosis with Zyprexa 10 mg at bedtime, Depakote ER 1000 mg at bedtime, and Ativan 1 mg bid. We will encourage groups and milieu. Aftercare will be return to care at [facility]. Medications: Current Medications Acetaminophen (Tylenol Tab*) 650 mg PO Q4H PRN PRN Reason: PAIN or TEMP > 101 F Al Hydrox/Mg Hydrox/Simethicone (Maalox Plus*) 30 ml PO Q4H PRN PRN Reason: INDIGESTION Divalproex Sodium (Depakote Er Tab(*)) 1,000 mg PO BEDTIME [facility] Last Admin: 10/11/16 21:08 Dose: 1,000 mg Lorazepam (Ativan Tab(*)) 1 mg PO BID [facility] Last Admin: 10/12/16 09:40 Dose: 1 mg Multivitamins (Theragran Tab*) 1 tab PO DAILY [facility] Last Admin: 10/12/16 09:39 Dose: 1 tab Multivitamins/Minerals (Theragran/Minerals Tab*) 1 tab PO DAILY [facility] Last Admin: 10/12/16 09:40 Dose: 1 tab Olanzapine (Zyprexa *Odt*) 10 mg PO BEDTIME [facility] Last Admin: 10/11/16 21:08 Dose: 10 mg Saliva Substitute (Biotene Moisturizing Mouth (Nf)) 1 spray MT Q3H PRN PRN Reason: DRY MOUTH Last Admin: 10/12/16 03:07 Dose: 1 spray Topiramate (Topamax(*)) 100 mg PO QAM [facility] Last Admin: 10/12/16 09:39 Dose: 100 mg - Discharge Plan Discharge Plan: Outpatient Follow Up Outpatient Program: [facility]
[2016-10-12] MEDS: OLANzapine TAB*ODT* 10 MG TAB PO SCH (21:06)
[2016-10-12] MEDS: Divalproex ER TAB(*) 500 MG PO SCH (21:07)
[2016-10-13] MEDS: CMC:Saliva Substitute (NF) 1 SPRAY BTL MT PRN ×3 (01:11→09:45)
--- NOTE | 2016-10-13 08:59 | PN ---
Subjective - Subjective Service Type: [id number] Hosp care 15 min low complexity Subjective: Una reports remission of PI that she is being stalked. She is still psychotically related, with intense fixed gaze, but nevertheless pleasant and collaborative. She has no physical complaints. She says she expects to be well enough for discharge in another day or two. Objective - Appearance Appearance: Obese Dysmorphic Features: No Hygiene: Normal Grooming: Disheveled - Behavior Psychomotor Activities: Normal Exhibits Abnormal Movement: No - Attitude and Relatedness Attitude and Relatedness: Psychotically Related Eye Contact: Good - intense - Speech Quality: Unpressured Latencies: Normal Quantity: Terse - Mood Patient's Decription of Mood: "Good" - Affect Observed Affect: Constricted Affect Consistent with: Euthymia - Thought Process Patient's Thought Process: Impoverished Thought Content: No Passive Wish, No Suicidal Planning, No Homicidal Ideation, No Paranoid Ideation - Sensorium Experiencing Hallucinations: No, Sensorium is Clear Type of Hallucinations: Visual: No, Auditory: No, Command: No - Level of Consciousness Level of Consciousness: Alert Orientation: Yes Intact, Yes Orientated to Time, Yes Orientated to Place, Yes Orientated to Person - Impulse Control Impulse Control: Intact - Insight and Judgement Insight and Judgement: Poor - but improving - Group Participation Particating in Group Activities: Yes - Medication Management Medication Management Adherence: Yes Assessment - Assessment Merits Inpatient Hospitalization: For Immediate Safety, For Stabilization, For Discharge Planning, Pending Safe DC Plan Inpatient DSM-IV Dx: Bipolar 1 disorder, current episode manic, severe, with psychotic features. Unspecified anxiety disorder. Clinical Impression: Ms Bonner is a 56 year-old woman with a diagnosis of type I bipolar disorder, currently manic with psychosis, perhaps due to lapse from meds. She has agreed to effective medication therapy against waldo and psychosis. ..17 No complaints. Med adherent. Pleasant and collaborative despite continued psychotic relating style. Expect improvements daily with current anti manic/psychotic medication regimen. 10.13.17 Remains psychotically related, but less intensely. No physical complaints and no complaint of medication side effects. Participating in groups and med compliant. Plan - Plan Treatment Plan: Name: UNA BONNER Birthdate: 1960 [id number] Continue to treat waldo and psychosis with Zyprexa 10 mg at bedtime, Depakote ER 1000 mg at bedtime, and Ativan 1 mg bid, going on day 3 on this regimen. She is attending groups and engaging in the milieu without encouragement. Aftercare will be return to care at [facility]. Medications: Current Medications Acetaminophen (Tylenol Tab*) 650 mg PO Q4H PRN PRN Reason: PAIN or TEMP > 101 F Al Hydrox/Mg Hydrox/Simethicone (Maalox Plus*) 30 ml PO Q4H PRN PRN Reason: INDIGESTION Divalproex Sodium (Depakote Er Tab(*)) 1,000 mg PO BEDTIME [facility] Last Admin: 10/12/16 21:07 Dose: 1,000 mg Lorazepam (Ativan Tab(*)) 1 mg PO BID [facility] Last Admin: 10/12/16 21:07 Dose: 1 mg Multivitamins (Theragran Tab*) 1 tab PO DAILY [facility] Last Admin: 10/12/16 09:39 Dose: 1 tab Multivitamins/Minerals (Theragran/Minerals Tab*) 1 tab PO DAILY [facility] Last Admin: 10/12/16 09:40 Dose: 1 tab Olanzapine (Zyprexa *Odt*) 10 mg PO BEDTIME [facility] Last Admin: 10/12/16 21:06 Dose: 10 mg Saliva Substitute (Biotene Moisturizing Mouth (Nf)) 1 spray MT Q3H PRN PRN Reason: DRY MOUTH Last Admin: 10/13/16 05:10 Dose: 1 spray Topiramate (Topamax(*)) 100 mg PO QAM [facility] Last Admin: 10/12/16 09:39 Dose: 100 mg - Discharge Plan Discharge Plan: Outpatient Follow Up Outpatient Program: [facility]
[2016-10-13] MEDS: Multivitamins/Minerals TAB PO SCH (09:11)
[2016-10-13] MEDS: Vitamin THERAPEUTIC TAB PO SCH (09:11)
[2016-10-13] MEDS: Topiramate TAB(*) 100 MG PO SCH (09:11)
[2016-10-13] MEDS: LORazepam TAB(*) 1 MG PO SCH ×2 (09:11→21:22)
--- NOTE | 2016-10-13 11:35 | PN ---
MHU: Group Therapy Note - Service Type Service Type: [id number] Group Psychotherapy - Cognitive Behavioral Group Therapy ( CBT):Patient presented in CBT programming as disorganized and disruptive in discussion and needed repeated redirection to attend to presented materials. Una tends to respond to idiosyncratic thoughts, and appears to overvalue topics at times. At other times her comments are topical and insightful.
[2016-10-13] MEDS: OLANzapine TAB*ODT* 10 MG TAB PO SCH (21:22)
[2016-10-13] MEDS: Divalproex ER TAB(*) 500 MG PO SCH (21:22)
[2016-10-14] MEDS: CMC:Saliva Substitute (NF) 1 SPRAY BTL MT PRN ×3 (02:45→14:18)
[2016-10-14] MEDS: Multivitamins/Minerals TAB PO SCH (08:13)
[2016-10-14] MEDS: Vitamin THERAPEUTIC TAB PO SCH (08:13)
[2016-10-14] MEDS: Topiramate TAB(*) 100 MG PO SCH (08:13)
[2016-10-14] MEDS: LORazepam TAB(*) 1 MG PO SCH ×2 (08:13→21:17)
--- NOTE | 2016-10-14 11:03 | PN ---
Subjective - Subjective Service Type: [id number] Hosp care 15 min low complexity Subjective: Una reports that she is having no psychotic experience. Still reports she is living with Tahir. Has no physical complaints. REports her friend Brittanie may be in to see her today and if so she will ask her if she can talk to us about how she sees Una doing compared to her usual baseline. Objective - Appearance Appearance: Obese Dysmorphic Features: No Hygiene: Normal Grooming: Disheveled - Behavior Psychomotor Activities: Normal Exhibits Abnormal Movement: No - Attitude and Relatedness Attitude and Relatedness: Psychotically Related Eye Contact: Good - less intense - Speech Quality: Unpressured Latencies: Normal Quantity: Appropriate - Mood Patient's Decription of Mood: "Good" - Affect Observed Affect: Constricted - but less so Affect Consistent with: Euthymia - Thought Process Patient's Thought Process: Coherent, Goal Directed Thought Content: No Passive Wish, No Suicidal Planning, No Homicidal Ideation, No Paranoid Ideation - Sensorium Experiencing Hallucinations: No, Sensorium is Clear Type of Hallucinations: Visual: No, Auditory: No, Command: No - Level of Consciousness Level of Consciousness: Alert Orientation: Yes Intact, Yes Orientated to Time, Yes Orientated to Place, Yes Orientated to Person - Impulse Control Impulse Control: Intact - Insight and Judgement Insight and Judgement: Poor - Group Participation Particating in Group Activities: Yes - Medication Management Medication Management Adherence: Yes Assessment - Assessment Merits Inpatient Hospitalization: For Stabilization, To Initiate Treatment, Consolidate Improvements, For Discharge Planning, Pending Safe DC Plan Inpatient DSM-IV Dx: Bipolar 1 disorder, current episode manic, severe, with psychotic features. Unspecified anxiety disorder. Clinical Impression: Ms Bonner is a 56 year-old woman with a diagnosis of type I bipolar disorder, currently manic with psychosis, perhaps due to lapse from meds. She has agreed to effective medication therapy against waldo and psychosis. 1.24.17 No complaints. Med adherent. Pleasant and collaborative despite continued psychotic relating style. Expect improvements daily with current anti manic/psychotic medication regimen. 25.17 Remains psychotically related, but less intensely. No physical complaints and no complaint of medication side effects. Participating in groups and med compliant. 10.14.17 Gaze less intense and has reported to staff remission of PI that she is being stalked. Will ask friend Brittanie to give us collateral report. Plan - Plan Treatment Plan: Name: UNA BONNER Birthdate: 1960 [id number] Continue to treat waldo and psychosis with Zyprexa 10 mg at bedtime, Depakote ER 1000 mg at bedtime, and Ativan 1 mg bid, going on day 3 on this regimen. She is attending groups and engaging in the milieu without encouragement. Aftercare will be return to care at [facility]. Continued Medication Management: Different Medication Medications: Current Medications Acetaminophen (Tylenol Tab*) 650 mg PO Q4H PRN PRN Reason: PAIN or TEMP > 101 F Al Hydrox/Mg Hydrox/Simethicone (Maalox Plus*) 30 ml PO Q4H PRN PRN Reason: INDIGESTION Divalproex Sodium (Depakote Er Tab(*)) 1,000 mg PO BEDTIME [facility] Last Admin: 10/13/16 21:22 Dose: 1,000 mg Lorazepam (Ativan Tab(*)) 1 mg PO BID [facility] Last Admin: 10/14/16 08:13 Dose: 1 mg Multivitamins (Theragran Tab*) 1 tab PO DAILY [facility] Last Admin: 10/14/16 08:13 Dose: 1 tab Multivitamins/Minerals (Theragran/Minerals Tab*) 1 tab PO DAILY [facility] Last Admin: 10/14/16 08:13 Dose: 1 tab Olanzapine (Zyprexa *Odt*) 10 mg PO BEDTIME [facility] Last Admin: 10/13/16 21:22 Dose: 10 mg Saliva Substitute (Biotene Moisturizing Mouth (Nf)) 1 spray MT Q3H PRN PRN Reason: DRY MOUTH Last Admin: 10/14/16 06:22 Dose: 1 spray Topiramate (Topamax(*)) 100 mg PO QAM [facility] Last Admin: 10/14/16 08:13 Dose: 100 mg - Discharge Plan Discharge Plan: Outpatient Follow Up Outpatient Program: [facility]
[2016-10-14] MEDS: Divalproex ER TAB(*) 500 MG PO SCH (21:17)
[2016-10-14] MEDS: OLANzapine TAB*ODT* 10 MG TAB PO SCH (21:18)
[2016-10-15] MEDS: CMC:Saliva Substitute (NF) 1 SPRAY BTL MT PRN ×2 (04:36→23:09)
[2016-10-15] MEDS: Multivitamins/Minerals TAB PO SCH (09:35)
[2016-10-15] MEDS: LORazepam TAB(*) 1 MG PO SCH (09:35)
[2016-10-15] MEDS: Topiramate TAB(*) 100 MG PO SCH (09:37)
[2016-10-15] MEDS: Vitamin THERAPEUTIC TAB PO SCH (10:51)
--- NOTE | 2016-10-15 13:41 | PN ---
MHU: Group Therapy Note - Service Type Service Type: [id number] Group Psychotherapy - Una was disorganized in cbt programming this morning, having difficulty attending to peer and staff discussion. She described having difficulty adjusting to changes in medications , citing feeling lethargic.
[2016-10-15] MEDS ORDERED: LORazepam TAB(*) 1 MG PO PRN (15:59)
--- NOTE | 2016-10-15 16:21 | PN ---
Subjective - Subjective Service Type: [id number] Hosp care 15 min low complexity Subjective: nUa told me today that she started Topamax in 2012 for seizures while at [place]. She reports that she was later seen by a neurologist in [place] who told her she did not have a seizure disorder and did not need to take this medication. Una does not remember the name of the neurologist. She says she continues to take the med on prescription from Dr Rivera of [facility]. Una reports some continued concerns that she might be followed by a man she has seen three times at different locations. She is showing some signs of continued cognitive/behavioral disorganization attributed to oversedation. Objective - Appearance Appearance: Obese Dysmorphic Features: No Hygiene: Normal Grooming: Disheveled - Behavior Psychomotor Activities: Normal Exhibits Abnormal Movement: No - Attitude and Relatedness Attitude and Relatedness: Cooperative Eye Contact: Fair - Speech Quality: Unpressured Latencies: Normal Quantity: Appropriate - Mood Patient's Decription of Mood: "Good" - Affect Observed Affect: Fair Affect Consistent with: Euthymia - Thought Process Patient's Thought Process: Coherent, Goal Directed, Impoverished - or at least with some long latencies Thought Content: Yes Paranoid Ideation - re being followed, No Passive Wish, No Suicidal Planning, No Homicidal Ideation - Sensorium Experiencing Hallucinations: No, Sensorium is Clear Type of Hallucinations: Visual: No, Auditory: No, Command: No - Level of Consciousness Level of Consciousness: Alert Orientation: Yes Intact, Yes Orientated to Time, Yes Orientated to Place, Yes Orientated to Person - Impulse Control Impulse Control: Intact - Insight and Judgement Insight and Judgement: Poor - Group Participation Particating in Group Activities: Yes - Medication Management Medication Management Adherence: Yes Assessment - Assessment Merits Inpatient Hospitalization: For Stabilization, For Ongoing Evaluation, For Discharge Planning, Pending Safe DC Plan Inpatient DSM-IV Dx: Bipolar 1 disorder, current episode manic, severe, with psychotic features. Unspecified anxiety disorder. Clinical Impression: Ms Bonner is a 56 year-old woman with a diagnosis of type I bipolar disorder, currently manic with psychosis, perhaps due to lapse from meds. She has agreed to effective medication therapy against waldo and psychosis. 10.12.17 No complaints. Med adherent. Pleasant and collaborative despite continued psychotic relating style. Expect improvements daily with current anti manic/psychotic medication regimen. 1.25.17 Remains psychotically related, but less intensely. No physical complaints and no complaint of medication side effects. Participating in groups and med compliant. 10.14.17 Gaze less intense and has reported to staff remission of PI that she is being stalked. Will ask friend Brittanie to give us collateral report. 10.15. Although she has signs of remission of waldo/psychosis, continues to report paranoia about being followed. Some continued disorganization of though/ behavior, attributed to oversedation. Started Depakote, Zyprexa and Ativan here ; had been on Topamax. All could contribute to sedation and cognitive slowing. Plan - Plan Treatment Plan: Name: UNA BONNER Birthdate: 1960 [id number] Continue to treat waldo and psychosis with Zyprexa but reduced to 5 mg at bedtime, Depakote ER 1000 mg at bedtime (this dose giving good 68 level), and Ativan reduced to 0.5 mg bid prn. Dose reductions are balancing continued treatment of resolving waldo/psychosis against complaint of oversedation and cognitive slowing. She is attending groups and engaging in the milieu without encouragement, but showing signs of disorganization. Clarified today that although it was first given to her for a question of seizure disorder in 2012 while at [place], she saw a neurologist who told her she did not need to take it as she did not have a seizure disorder. It has been prescribed for several months by Dr Rivera, but for appetite modulation rather than seizure prophylaxis. I will therefore stop Topamax, which is known for side effect of cognitive dulling. Aftercare will be return to care at [facility]. Medications: Current Medications Acetaminophen (Tylenol Tab*) 650 mg PO Q4H PRN PRN Reason: PAIN or TEMP > 101 F Al Hydrox/Mg Hydrox/Simethicone (Maalox Plus*) 30 ml PO Q4H PRN PRN Reason: INDIGESTION Divalproex Sodium (Depakote Er Tab(*)) 1,000 mg PO BEDTIME [facility] Last Admin: 10/14/16 21:17 Dose: 1,000 mg Lorazepam (Ativan Tab(*)) 1 mg PO BID [facility] Last Admin: 10/15/16 09:35 Dose: 1 mg Multivitamins (Theragran Tab*) 1 tab PO DAILY [facility] Last Admin: 10/15/16 10:51 Dose: 1 tab Multivitamins/Minerals (Theragran/Minerals Tab*) 1 tab PO DAILY [facility] Last Admin: 10/15/16 09:35 Dose: 1 tab Olanzapine (Zyprexa *Odt*) 10 mg PO BEDTIME [facility] Last Admin: 10/14/16 21:18 Dose: 10 mg Saliva Substitute (Biotene Moisturizing Mouth (Nf)) 1 spray MT Q3H PRN PRN Reason: DRY MOUTH Last Admin: 10/15/16 04:36 Dose: 1 spray Topiramate (Topamax(*)) 100 mg PO QAM [facility] Last Admin: 10/15/16 09:37 Dose: 100 mg - Discharge Plan Discharge Plan: Outpatient Follow Up Outpatient Program: [facility]
[2016-10-15] MEDS: Divalproex ER TAB(*) 500 MG PO SCH (20:06)
[2016-10-15] MEDS: OLANzapine TAB*ODT* 5 MG PO SCH (20:06)
[2016-10-16] MEDS: CMC:Saliva Substitute (NF) 1 SPRAY BTL MT PRN ×5 (02:33→20:34)
[2016-10-16] MEDS: Vitamin THERAPEUTIC TAB PO SCH (09:05)
[2016-10-16] MEDS: Multivitamins/Minerals TAB PO SCH (09:05)
[2016-10-16] MEDS: Acetaminophen TAB* 325 MG PO PRN (18:14)
[2016-10-16] MEDS: Divalproex ER TAB(*) 500 MG PO SCH (20:32)
[2016-10-16] MEDS: OLANzapine TAB*ODT* 5 MG PO SCH (20:33)
[2016-10-17] MEDS: CMC:Saliva Substitute (NF) 1 SPRAY BTL MT PRN ×5 (01:00→23:48)
[2016-10-17] MEDS: Acetaminophen TAB* 325 MG PO PRN ×3 (05:18→20:30)
[2016-10-17] MEDS: Multivitamins/Minerals TAB PO SCH (09:22)
[2016-10-17] MEDS: Vitamin THERAPEUTIC TAB PO SCH (09:22)
[2016-10-17] MEDS: Divalproex ER TAB(*) 500 MG PO SCH (20:28)
[2016-10-17] MEDS: OLANzapine TAB*ODT* 5 MG PO SCH (20:29)
[2016-10-18] MEDS: CMC:Saliva Substitute (NF) 1 SPRAY BTL MT PRN ×4 (03:29→17:26)
--- NOTE | 2016-10-18 07:46 | PN ---
Subjective - Subjective Service Type: [id number] Hosp care 15 min low complexity Subjective: Una expresses readiness to plan discharge. She made no persecutory or delusional statements, and said she would feel safe. She denies problems with medication. Objective - Appearance Appearance: Obese Hygiene: Normal Grooming: Fairly Well Kept - Behavior Psychomotor Activities: Abnormal-Decreased - Attitude and Relatedness Attitude and Relatedness: Child Like Eye Contact: Good - Speech Quality: Unpressured Latencies: Normal Quantity: Terse - Mood Patient's Decription of Mood: "Anxious" - Affect Observed Affect: Unvariable Affect Consistent with: Euthymia - Thought Process Patient's Thought Process: Impoverished Thought Content: No Passive Wish, No Suicidal Planning, No Homicidal Ideation, No Paranoid Ideation - Sensorium Experiencing Hallucinations: No, Sensorium is Clear - Level of Consciousness Level of Consciousness: Alert - Impulse Control Impulse Control: Intact - Insight and Judgement Insight and Judgement: Poor Assessment - Assessment Inpatient DSM-IV Dx: Bipolar disorder NOS. Psychotic disorder NOS. Unspecified anxiety disorder Clinical Impression: 56 year-old female with history of multiple psychiatric hospitalizations, psychosis, suicidal behavior, Bipolar disorder. She was admitted after coming to the ED by ambulance and concerns included apparent impairing mood symptoms and paranoid ideation. Stabilized behaviorally here. Medmgt. has with Zyprexa (increasing to 10mg), Depakote - discontinuing Ativan due to risks with it - should not be a problem given fact pt. has not been relying on it. We have been targeting recent apparent over-sedation and cognitive dulling while going for clinical yield. Una's distress around persecutory ideation is reduced. Mood symptoms are milder. Given progress it's reasonable to expect discharge in coming days. She has complained of foot swelling and discomfort, and this can be appropriately followed in primary care. Plan - Plan Treatment Plan: Name: UNA BONNER Birthdate: 1960 [id number] Continued Medication Management: Different Medication Medications: Current Medications Acetaminophen (Tylenol Tab*) 650 mg PO Q4H PRN PRN Reason: PAIN or TEMP > 101 F Last Admin: 10/17/16 20:30 Dose: 650 mg Al Hydrox/Mg Hydrox/Simethicone (Maalox Plus*) 30 ml PO Q4H PRN PRN Reason: INDIGESTION Divalproex Sodium (Depakote Er Tab(*)) 1,000 mg PO BEDTIME STEPHANIE Last Admin: 10/17/16 20:28 Dose: 1,000 mg Lorazepam (Ativan Tab(*)) 0.5 mg PO BID PRN PRN Reason: ANXIETY Multivitamins (Theragran Tab*) 1 tab PO DAILY STEPHANIE Last Admin: 10/17/16 09:22 Dose: 1 tab Multivitamins/Minerals (Theragran/Minerals Tab*) 1 tab PO DAILY STEPHANIE Last Admin: 10/17/16 09:22 Dose: 1 tab Olanzapine (Zyprexa * Tab Odt) 5 mg PO BEDTIME STEPHANIE Last Admin: 10/17/16 20:29 Dose: 5 mg Saliva Substitute (Biotene Moisturizing Mouth (Nf)) 1 spray MT Q3H PRN PRN Reason: DRY MOUTH Last Admin: 10/18/16 03:29 Dose: 1 spray - Discharge Plan Discharge Plan: Outpatient Follow Up Outpatient Program: [facility]
[2016-10-18] MEDS: Multivitamins/Minerals TAB PO SCH (08:52)
[2016-10-18] MEDS: Vitamin THERAPEUTIC TAB PO SCH (08:52)
--- NOTE | 2016-10-18 12:50 | PN ---
MHU: Group Therapy Note - Service Type Service Type: [id number] Group Psychotherapy - Cognitive Behavioral Group Therapy ( CBT):Patient was attentive and participatory in CBT programming this morning, and remained in good behavioral control. Patient expressed positive insights regarding relevant treatment interventions and goals.
[2016-10-18] MEDS: OLANzapine TAB*ODT* 10 MG TAB PO SCH (20:28)
[2016-10-18] MEDS: Divalproex ER TAB(*) 500 MG PO SCH (20:28)
[2016-10-18] MEDS: Acetaminophen TAB* 325 MG PO PRN (23:50)
[2016-10-19] MEDS: CMC:Saliva Substitute (NF) 1 SPRAY BTL MT PRN ×3 (07:16→21:06)
[2016-10-19] MEDS: Multivitamins/Minerals TAB PO SCH (08:35)
[2016-10-19] MEDS: Vitamin THERAPEUTIC TAB PO SCH (08:36)
--- NOTE | 2016-10-19 13:09 | PN ---
MHU: Group Therapy Note - Service Type Service Type: [id number] Group Psychotherapy - Cognitive Behavioral Group Therapy ( CBT):Patient presented in CBT programming as disorganized and disruptive in discussion and needed repeated redirection to attend to presented materials.
[2016-10-19] MEDS: Acetaminophen TAB* 325 MG PO PRN (16:00)
[2016-10-19] MEDS: Divalproex ER TAB(*) 500 MG PO SCH (21:05)
[2016-10-19] MEDS: OLANzapine TAB*ODT* 10 MG TAB PO SCH (21:07)
[2016-10-20] MEDS: Acetaminophen TAB* 325 MG PO PRN ×2 (01:14→13:32)
[2016-10-20] MEDS: CMC:Saliva Substitute (NF) 1 SPRAY BTL MT PRN ×3 (02:05→20:43)
[2016-10-20] MEDS: Vitamin THERAPEUTIC TAB PO SCH (09:00)
[2016-10-20] MEDS: Multivitamins/Minerals TAB PO SCH (09:01)
--- NOTE | 2016-10-20 12:06 | PN ---
MHU: Group Therapy Note - Service Type Service Type: [id number] Group Psychotherapy - Cognitive Behavioral Group Therapy ( CBT):Patient was attentive and participatory in CBT programming this morning, and remained in good behavioral control. Patient expressed positive insights regarding relevant treatment interventions and goals.
--- NOTE | 2016-10-20 12:29 | PN ---
Subjective - Subjective Service Type: 89036 Hosp care 15 min low complexity Subjective: Una reports doing "okay," and said she wants to go home soon. She notes subjective improvements, makes no delusional comments, affirms she is safe, and says no one is out to get her. She denied side effects with regimen. She declined offer of Tamiflu proph. based on Infection Control recommendation ( a patient on the unit for about 24 hours yesterday tested + for Inf. A). Objective - Appearance Appearance: Obese Hygiene: Normal Grooming: Fairly Well Kept - Behavior Psychomotor Activities: Normal - Attitude and Relatedness Attitude and Relatedness: Regressed Eye Contact: Good - Speech Quality: Unpressured Latencies: Normal Quantity: Terse - Mood Patient's Decription of Mood: "Okay" - Affect Observed Affect: Tense Affect Consistent with: Euthymia - Thought Process Patient's Thought Process: Coherent, Goal Directed, Impoverished Thought Content: No Passive Wish, No Suicidal Planning, No Homicidal Ideation, No Paranoid Ideation - Sensorium Experiencing Hallucinations: No, Sensorium is Clear - Level of Consciousness Level of Consciousness: Alert - Impulse Control Impulse Control: Intact - Insight and Judgement Insight and Judgement: Fair Assessment - Assessment Merits Inpatient Hospitalization: To Initiate Treatment, For Ongoing Evaluation , Consolidate Improvements, For Discharge Planning Inpatient DSM-IV Dx: Bipolar disorder NOS. Psychotic disorder NOS. Unspecified anxiety disorder Clinical Impression: 56 year-old female with history of multiple psychiatric hospitalizations, psychosis, suicidal behavior, Bipolar disorder. She was admitted after coming to the ED by ambulance and concerns included apparent impairing mood symptoms and paranoid ideation. Stabilized behaviorally here. Medmgt. has with Zyprexa (increased to 10mg), and Depakote - we discontinued Ativan due to risks with it - this should not be a problem given fact pt. has not been relying on it. We have been targeting recent apparent over-sedation and cognitive dulling while going for clinical yield. Una's distress around persecutory ideation is reduced. She makes no spontaneous delusional comments. Mood symptoms are milder. Given progress it's reasonable to expect discharge in coming days. She complained of foot swelling and discomfort, and this can be appropriately followed in primary care. Plan - Plan Treatment Plan: Name: UNA BONNER Birthdate: 1960 [id number] Continued Medication Management: Different Medication Medications: Current Medications Acetaminophen (Tylenol Tab*) 650 mg PO Q4H PRN PRN Reason: PAIN or TEMP > 101 F Last Admin: 10/20/16 01:14 Dose: 650 mg Al Hydrox/Mg Hydrox/Simethicone (Maalox Plus*) 30 ml PO Q4H PRN PRN Reason: INDIGESTION Divalproex Sodium (Depakote Er Tab(*)) 1,000 mg PO BEDTIME [facility] Last Admin: 10/19/16 21:05 Dose: 1,000 mg Multivitamins (Theragran Tab*) 1 tab PO DAILY STEPHANIE Last Admin: 10/20/16 09:00 Dose: 1 tab Multivitamins/Minerals (Theragran/Minerals Tab*) 1 tab PO DAILY STEPHANIE Last Admin: 10/20/16 09:01 Dose: 1 tab Olanzapine (Zyprexa *Odt*) 10 mg PO BEDTIME STEPHANIE Last Admin: 10/19/16 21:07 Dose: 10 mg Saliva Substitute (Biotene Moisturizing Mouth (Nf)) 1 spray MT Q3H PRN PRN Reason: DRY MOUTH Last Admin: 10/20/16 09:53 Dose: 1 spray - Discharge Plan Discharge Plan: Outpatient Follow Up
[2016-10-20] MEDS: Divalproex ER TAB(*) 500 MG PO SCH (20:41)
[2016-10-20] MEDS: OLANzapine TAB*ODT* 10 MG TAB PO SCH (20:41)
[2016-10-21] MEDS: Vitamin THERAPEUTIC TAB PO SCH (08:46)
[2016-10-21] MEDS: Multivitamins/Minerals TAB PO SCH (08:47)
[2016-10-21] MEDS: CMC:Saliva Substitute (NF) 1 SPRAY BTL MT PRN ×2 (08:48→20:56)
--- NOTE | 2016-10-21 13:47 | PN ---
MHU: Group Therapy Note - Service Type Service Type: [id number] Group Psychotherapy - Cognitive Behavioral Group Therapy ( CBT):Patient presented in CBT programming as disorganized and disruptive in discussion and needed repeated redirection to attend to presented materials.
[2016-10-21] MEDS: Divalproex ER TAB(*) 500 MG PO SCH (20:53)
[2016-10-21] MEDS: OLANzapine TAB*ODT* 10 MG TAB PO SCH (20:54)
[2016-10-22 08:15] VITALS: BP 126/82
[2016-10-22] MEDS: Vitamin THERAPEUTIC TAB PO SCH (09:02)
[2016-10-22] MEDS: Multivitamins/Minerals TAB PO SCH (09:02)
--- NOTE | 2016-10-22 11:45 | DS ---
Subjective - Subjective Service Types: [id number] [facility] Day Mgmt simple under 30 min Discharge Date: 10/22/16 Subjective: Una was cheerful and satisfied with discharge today. She denied setbacks or distress, and affirmed she is coping well. She denied perceptual disturbance, made no delusional comments, and affirmed she will be safe at home. We reviewed her medication changes and regimen, and talked about her NSAID use - let her know I direct her to "discontinue" them but the intent is for her to use them as directed and intended by her primary care doctor. She said she sees no barriers to routine care, or emergency help if needed. Objective - Appearance Appearance: Obese Hygiene: Normal Grooming: Well Kept - Behavior Psychomotor Activities: Normal - Attitude and Relatedness Attitude and Relatedness: Cooperative Eye Contact: Good - Speech Quality: Unpressured Latencies: Normal Quantity: Terse - Mood Patient's Decription of Mood: "Great" - Affect Observed Affect: Non-labile Affect Consistent with: Euphoria - Thought Process Patient's Thought Process: Coherent Thought Content: No Passive Wish, No Suicidal Planning, No Homicidal Ideation, No Paranoid Ideation - Sensorium Experiencing Hallucinations: No, Sensorium is Clear - Level of Consciousness Level of Consciousness: Alert - Impulse Control Impulse Control: Intact - Insight and Judgement Insight and Judgement: Fair Treatment Course & Assessment Clinical Course & Impression: 56 year-old female with history of multiple psychiatric hospitalizations, psychosis, suicidal behavior, Bipolar disorder. She was admitted after coming to the ED by ambulance and concerns included apparent impairing mood symptoms and paranoid ideation. 10/22/16 Clear for release. Una stabilized behaviorally here. Medmgt. was with Zyprexa (increased to 10mg), and Depakote (VPA level 68 on 10/15 ) - we discontinued Ativan due to risks with it - this should not be a problem given fact pt. has not been relying on it. We have been targeting recent apparent over-sedation and cognitive dulling while going for clinical yield. Una's distress around persecutory ideation corrected. She is no longer making spontaneous delusional comments. Mood symptoms are mild or baseline. Acute correction is corrected. She is appropriate for outpatient level of care. Risk of harm to self/other is assessed as low acutely, due to correction of acute impairment, and patient's low symptom burden and benign recent ideation and behavior. Una is at chronic elevated risk for suicide and at above average risk for minor impulsive violence due to her condition and history. Clear for Discharge: Adequate Clinical Respons, Acceptable Safety Profile, Low Utility of Inpt Care Inpatient DSM-IV Dx: Bipolar disorder NOS. Psychotic disorder NOS. Unspecified anxiety disorder Discharge Planning - Discharge Planning Discharge Plan: Outpatient Follow Up Outpatient Program: [facility] Recommendations for Continuing Care: Medication Management, Psychotherapy, Routine Metabolic Monitoring, Therapeutic Drug Levels, Primary Care Followup Medications: Current Medications Divalproex Sodium (Depakote Er Tab(*)) 1,000 mg PO BEDTIME [facility] Last Admin: 10/21/16 20:53 Dose: 1,000 mg Multivitamins/Minerals (Theragran/Minerals Tab*) 1 tab PO DAILY STEPHANIE Last Admin: 10/22/16 09:02 Dose: 1 tab Olanzapine (Zyprexa *Odt*) 10 mg PO BEDTIME STEPHANIE Last Admin: 10/21/16 20:54 Dose: 10 mg Saliva Substitute (Biotene Moisturizing Mouth (Nf)) 1 spray MT Q3H PRN PRN Reason: DRY MOUTH Last Admin: 10/21/16 20:56 Dose: 1 spray Discharge Planning: Prescriptions provided for discharge [x] Yes [] No Follow up care details as per social work arrangements. Patient response to discharge plan: [x] eager for discharge [] agreeable with discharge plan [] ambivalent about discharge [] disagrees with discharge today
== END 2016-10-22 13:45 | disposition home or self-care (01) | DRG 885 ==
LOC: ED 19:41 → BSU 10-09 01:17
PROVIDERS: ADMIT Psychiatry & Neurology Psychiatry; ATTEND Psychiatry & Neurology Psychiatry
PROC: GZHZZZZ Group Psychotherapy (ICD-10-PCS; principal; 2016-10-11)
PROC: GZ58ZZZ Individual Psychotherapy, Cognitive-Behavioral (ICD-10-PCS; 2016-10-11)
DX: F31.2 Bipolar disorder, current episode manic severe with psychotic features (principal); E66.9 Obesity, unspecified; F29 Unspecified psychosis not due to a substance or known physiological condition; F41.9 Anxiety disorder, unspecified; M13.861 Other specified arthritis, right knee; Z96.652 Presence of left artificial knee joint; Z68.41 Body mass index [BMI] 40.0-44.9, adult; Z91.030 Bee allergy status; Z91.018 Allergy to other foods; Z80.3 Family history of malignant neoplasm of breast; Z81.8 Family history of other mental and behavioral disorders; Z82.49 Family history of ischemic heart disease and other diseases of the circulatory system
CPT/HCPCS: 36415; 80053; 80164; 80307; 80320; 80329; 81003; 81015; 84443; 85025; 87086; 87641; 90853; 99222; 99231; 99232; 99238; 99285; A9270-GY; G0480

== ENCOUNTER 2016-11-07 22:48 | Emergency (ER) | payer MEDICARE, MEDICAID ==
--- NOTE | 2016-11-08 02:28 | ED ---
luz Cook Timothy, scribed for Jamie Taveras MD on 11/08/16 at 0205 . Dizziness - HPI Summary HPI Summary: Una Ward is a 56 yo female presenting to [facility] with a "fainting" sensation in response to her zyprexa when she lays down since 10/24/16. She states she has been on this medication for the past month. She also c/o stiff joints. Her Mhx includes bipolar disorder, sleep apnea, insomnia, TKR. - History Of Current Complaint Chief Complaint: EDGeneral Stated Complaint: MED REACTION. Time Seen by Provider: 11/08/16 02:01 Hx Obtained From: Patient Last Known Well Date: 10/23/16 Onset/Duration: Still Present Timing: Constant Severity Initially: Moderate Severity Currently: Moderate Character: Head Spinning, Lightheaded Aggravating Factor(s): Position Change - laying down Alleviating Factor(s): Nothing - Allergies/Home Medications Allergies/Adverse Reactions: Allergies Allergy/AdvReac Type Severity Reaction Status Date / Time Bee Venom Allergy Hives Verified 10/09/16 00:45 KIWI Allergy SCRATCHY Uncoded 12/29/14 15:54 THROAT, RUNNY NOSE AND THROAT PMH/Surg Hx/FS Hx/Imm Hx Endocrine/Hematology History: Reports: Hx Anemia - ON SUPPLEMENTS FOR Denies: Hx Anticoagulant Therapy, Hx Blood Disorders, Hx Blood Transfusions, Hx Diabetes, Hx Thyroid Disease, Hx Unexplained Bleeding Cardiovascular History: Denies: Hx Aneurysm, Hx Atrial Fibrillation, Hx Hypertension, Hx Myocardial Infarction, Hx Pacemaker/ICD Respiratory History: Reports: Hx Sleep Apnea - HAS A CPAP MACHINE BUT IS NOT USING IT AT THIS TIME- STATES NEEDS A CORD Denies: Hx Asthma, Hx Chronic Obstructive Pulmonary Disease (COPD) History: Denies: Hx Renal Disease Musculoskeletal History: Reports: Hx Arthritis - BOTH KNEE - tx'd w/ naproxen Sensory History: Reports: Hx Contacts or Glasses Denies: Hx Hearing Aid Opthamlomology History: Reports: Hx Contacts or Glasses Neurological History: Reports: Hx Seizures - Per pt-"zones out" Denies: Hx Dementia Psychiatric History: Reports: Hx Anxiety - ON MEDICATION FOR, Hx Depression - ON MEDICATION FOR Denies: Hx Eating Disorder, Hx Panic Disorder, Hx of Violent Episodes Against Others, Hx Substance Abuse - Surgical History Surgery Procedure, Year, and Place: LEFT KNEE MENISCUS REPAIR- [facility] [place]- [place]. Left knee replacement-2013 Hx Anesthesia Reactions: No Infectious Disease History: Yes Infectious Disease History: Reports: Hx of Known/Suspected MRSA - Per pt-Right lower anterior leg dx-2015 Denies: Hx Clostridium Difficile, Hx Hepatitis, Hx Human Immunodeficiency Virus (HIV), Traveled Outside the [place] in Last 30 Days - Family History Known Family History: Positive: Other - schizophrenia, bipolar disorder, depression, alcohol abuse, breast CA - Social History Alcohol Use: None Hx Substance Use: No Substance Use Type: Reports: None Hx Tobacco Use: No Smoking Status (MU): Former Smoker Review of Systems Constitutional: Negative Eyes: Negative ENT: Negative Cardiovascular: Negative Respiratory: Negative Gastrointestinal: Negative Genitourinary: Negative Positive: Myalgia - "stiff joints" Skin: Negative Neurological: Other - dizziness/lightheadedness with position change Psychological: Normal All Other Systems Reviewed And Are Negative: Yes Physical Exam Triage Information Reviewed: Yes Vital Signs On Initial Exam: Initial Vitals Temp Pulse Resp BP Pulse Ox 97.1 F 90 20 132/91 96 11/07/16 23:00 11/07/16 23:00 11/07/16 23:00 11/07/16 23:00 11/07/16 23:00 Vital Signs Reviewed: Yes Appearance: Positive: Well-Appearing, No Pain Distress Skin: Positive: Warm Eyes: Positive: Normal, LYNDSEY ENT: Positive: Hearing grossly normal Neck: Positive: Supple Respiratory/Lung Sounds: Positive: Breath Sounds Present Cardiovascular: Positive: RRR Abdomen Description: Positive: Nontender, Soft Bowel Sounds: Positive: Present Musculoskeletal: Positive: Normal Neurological: Positive: Sensory/Motor Intact, Alert, Oriented to Person Place, Time, Normal Gait Diagnostics - Vital Signs Vital Signs Temp Pulse Resp BP Pulse Ox 11/08/16 00:36 87 136/89 97 11/07/16 23:00 97.1 F 90 20 132/91 96 - Laboratory Result Diagrams: 11/08/16 02:45 11/08/16 02:45 Lab Statement: Any lab studies that have been ordered have been reviewed, and results considered in the medical decision making process. - EKG 0228 Cardiac Rate: NL EKG Rhythm: Sinus Rhythm EKG Interpretation: NSR @ 75 BPM. Dizzy Course/Dx - Course Assessment/Plan: Una Ward is a 56 yo female presenting to [facility] with dizziness in response to zyprexa. After clinical examination and review of her EKG and labwork, she will be discharged home with dizziness and weakness, and instructions to follow up with her prescribing physician. - Diagnoses Provider Diagnoses: Dizziness, Weakness Discharge - Discharge Plan Condition: Stable Disposition: HOME Patient Education Materials: Dizziness (ED), Lightheadedness (ED), Weakness (ED ) Referrals: Ronaldo Joseph MD [Primary Care Provider] - 2 Days Additional Instructions: Please follow up with the physician prescribing your zyprexa in regards to its affects on your health. Return to the emergency department with any new or recurring symptoms. The documentation as recorded by the luz ramirez Timothy accurately reflects the service I personally performed and the decisions made by me, Jamie Taveras MD.
[2016-11-08 03:03] LABS: Hematocrit 38 % (35-47); Hemoglobin 12.3 g/dl (12.0-16.0); Mean Corpuscular HGB Conc 32 g/dl (31-36); Mean Corpuscular Hemoglobin 27 pg (27-31); Mean Corpuscular Volume 84 fL (80-97); Mean Platelet Volume 7 um3 (7.4-10.4); Red Blood Count 4.54 10^6/ul (4.0-5.4); Red Cell Distribution Width 13 % (10.5-15); White Blood Count 6.1 10^3/ul (3.5-10.8)
[2016-11-08 03:25] LABS: BUN/Creatinine Ratio 22.6 (8-20); Calcium 9.1 mg/dL (8.6-10.3); EGFR Non-African American 100.3 (>60); Potassium 3.8 mmol/L (3.5-5.0)
[2016-11-08 03:50] VITALS: BP 118/75
== END 2016-11-08 03:48 | disposition home or self-care (01) ==
LOC: ED 22:48
DX: R42 Dizziness and giddiness (principal); R53.1 Weakness; Z87.891 Personal history of nicotine dependence
CPT/HCPCS: 36415; 80048; 85025; 93005; 99282

== ENCOUNTER 2016-11-12 08:04 | Inpatient (IN) | payer MEDICARE, MEDICAID ==
[2016-11-12] MEDS ORDERED: Naloxone* 0.4 MG/ML 1 ML VIAL ONE (08:08)
[2016-11-12] MEDS ORDERED: Naloxone Nasal Spray* 4 MG/0.1 ML NASAL.SPR NASAL ONE ×2 (08:11→08:18)
[2016-11-12] MEDS ORDERED: Naloxone* 0.4 MG/ML 1 ML VIAL IV PUSH ONE (08:18)
[2016-11-12] MEDS ORDERED: Ammonia Inhalant* 1 EA AMP INH ONE ×2 (08:18→09:32)
[2016-11-12 08:39] LABS: Hematocrit 36 % (35-47); Hemoglobin 11.6 g/dl (12.0-16.0); Mean Corpuscular HGB Conc 32 g/dl (31-36); Mean Corpuscular Hemoglobin 27 pg (27-31); Mean Corpuscular Volume 84 fL (80-97); Mean Platelet Volume 7 um3 (7.4-10.4); Red Cell Distribution Width 14 % (10.5-15); White Blood Count 6.9 10^3/ul (3.5-10.8)
[2016-11-12 08:55] LABS: ALT 21 U/L (7-52); Albumin 3.5 g/dL (3.2-5.2); Alkaline Phosphatase 60 U/L (34-104); BUN/Creatinine Ratio 23.9 (8-20); Blood Urea Nitrogen 17 mg/dL (6-24); CO2 Carbon Dioxide 23 mmol/L (22-32); Calcium 8.5 mg/dL (8.6-10.3); Chloride 105 mmol/L (101-111); EGFR African American 110.3 (>60); EGFR Non-African American 85.8 (>60); Globulin 2.9 g/dL (2-4); Glucose 178 mg/dL (70-100); Sodium 136 mmol/L (133-145); Total Protein 6.4 g/dL (6.4-8.9)
--- NOTE | 2016-11-12 08:59 | RAD ---
HISTORY: Altered mental status COMPARISONS: September 25, 2016 TECHNIQUE: Multiple contiguous axial CT scans were obtained of the head without intravenous contrast. FINDINGS: HEMORRHAGE/INFARCT: There is no hemorrhage or acute infarct. MASSES/SHIFT: There is no mass or shift. EXTRA-AXIAL SPACES: There are no extra-axial fluid collections. SULCI AND VENTRICLES: The sulci and ventricles are normal in size and position for the patient's stated age. CEREBRUM: There are no focal parenchymal abnormalities. BRAINSTEM: There are no focal parenchymal abnormalities. CEREBELLUM: There are no focal parenchymal abnormalities. VESSELS: The vessels are grossly normal. PARANASAL SINUSES: The paranasal sinuses are clear. ORBITS: The orbits are unremarkable. BONES AND SOFT TISSUE: No bone or soft tissue abnormalities are noted. OTHER: None IMPRESSION: NO ACUTE INTRACRANIAL PATHOLOGY.
[2016-11-12 09:02] LABS: AST 18 U/L (13-39); Anion Gap 8 mmol/L (2-11); Potassium 3.7 mmol/L (3.5-5.0)
[2016-11-12 09:08] LABS: Urine Bilirubin Negative (Negative); Urine Glucose Negative (Negative); Urine Nitrite Negative (Negative)
[2016-11-12 09:29] LABS: Benzodiazepine Urine Screen None Detected (None Detect)
[2016-11-12 09:35] LABS: Acetaminophen < 15 mcg/mL; Alcohol < 10 mg/dL (<10); Salicylate < 2.50 mg/dL (<30)
[2016-11-12 09:45] LABS: TSH (Thyroid Stimulating Horm) 1.42 mcIU/mL (0.34-5.60)
[2016-11-12] MEDS ORDERED: NS 0.9% 1000 ML* 1,000 ML IV ONE (10:50)
--- NOTE | 2016-11-12 11:07 | RAD ---
HISTORY: Decreased responsiveness COMPARISONS: September 25, 2016 VIEWS:1: Single frontal portable view of the chest at 10:50 AM FINDINGS: LINES AND TUBES: None. CARDIOMEDIASTINAL SILHOUETTE: The cardiomediastinal silhouette is normal for portable technique. PLEURA: The costophrenic angles are sharp. No pleural abnormalities are noted. LUNG PARENCHYMA: There is hyperinflation. There is prominence of the central pulmonary vasculature. ABDOMEN: The upper abdomen is clear. There is no subphrenic gas. BONES AND SOFT TISSUES: No bone or soft tissue abnormalities are noted. IMPRESSION: COPD. PULMONARY VASCULAR CONGESTION
[2016-11-12 11:15] LABS: Troponin I 0.01 ng/mL (<0.04)
--- NOTE | 2016-11-12 11:30 | RAD ---
HISTORY: Bilateral lower extremity edema COMPARISONS: None relevant TECHNIQUE: Multiple transverse and longitudinal ultrasound images were obtained of the bilateral lower extremities from the level of the common femoral vein inferiorly through to the infrapopliteal veins using grayscale, color Doppler, and spectral Doppler imaging with and without compression and with augmentation. FINDINGS: VEINS: The venous system of the bilateral lower extremities is compressible throughout its course, with normal flow on color Doppler imaging and normal response to augmentation on spectral Doppler imaging. SOFT TISSUES: Unremarkable. OTHER FINDINGS: None. IMPRESSION: NO RIGHT LOWER EXTREMITY DEEP VEIN THROMBOSIS. NO LEFT LOWER EXTREMITY DEEP VEIN THROMBOSIS
[2016-11-12 11:31] LABS: PCO2 Arterial 43 mmHg (35-45)
--- NOTE | 2016-11-12 12:55 | HP ---
ADMISSION HISTORY AND PHYSICAL: DATE OF ADMISSION: 11/12/16 PRIMARY CARE PROVIDER: Ronaldo Joseph MD PSYCHIATRIST: Dr. Rivera. HEALTH CARE PROXY: The patient is unable to identify at this time. CODE STATUS: Full. CHIEF COMPLAINT: Suspected overdose. SOURCE OF INFORMATION: History obtained from discussion with patient. RELIABILITY: Poor. Discussion with patient's daughter, Elyssa and Taylor; review of past medical records; thus reliability is good. HISTORY OF PRESENT ILLNESS: This is a 56-year-old female with a past medical history of type 1 bipolar disorder recent hospital stay at [facility] [place] from 10/09/16 to 10/22/16 after admission for waldo with psychotic features. She was returned to the [facility] ED on November 08 with complaints of "fainting sensation" which she thought was secondary to her Zyprexa, directed followup with her PCP. This morning she was found unresponsive on her bedroom floor and was unable to get up and daughter activated EMS. The patient lives alone; however, daughter has been living with her for the last several days. She noted that yesterday prior to presentation, she had been very emotional and crying a lot. As well, she noted she was "praying vigorously." She had been up multiple times overnight and around 7:30 in the morning, the daughter heard noises coming from patient's room and when she checked on her, found her unresponsive on the floor. She did not note any pills on the floor or bottles out that she can note. Her daughter , Elyssa, who is not living with her noted that the patient had been more aggressive and mean since discharge from the hospital. Per report prior this patient's evaluation, the patient had indicated she overdosed on DayQuil as well as Effexor and potentially Depakote. In the emergency room, she received naloxone without effect and the hospital service was consulted for admission. When seen by this author, the patient was easy to wake; however, fell back asleep quickly and was unable relay a meaningful history; however, she did indicate when pressed why, how she ended up in the hospital, very clearly that she wanted to kill herself. She actually denied taking any overdose of medications. PAST MEDICAL HISTORY: Includes: 1. Bipolar I. 2. Suicidal behavior. 3. Left knee meniscus repair. 4. Question of JYOTI. MEDICATIONS ON DISCHARGE: On last hospital stay includes: 1. Depakote 1000 mg at bedtime. 2. Zyprexa ODT 10 mg at bedtime. 3. Biotene moisturizing mouthwash 1 spray mouth and throat every 3 hours as needed for dry mouth. 4. Ferrex 150 mg daily. 5. Multivitamin 1 tab daily. MEDICATIONS DISCONTINUED: On last hospital stay include: 1. Topamax. 2. Abilify. 3. Naproxen. 5. Effexor. 6. Nabumetone. ALLERGIES: BEE VENOM and KIWI. FAMILY HISTORY: Per chart review includes mother with pancreatic cancer and father with concern for CAD. SOCIAL HISTORY: Denies tobacco. Unable to obtain further. Lives alone, although daughter, Taylor, is currently living with her. REVIEW OF SYSTEMS: Unable to obtain except for increasing aggression, praying, and emotional liability at home per daughter, Taylor's report. PHYSICAL EXAMINATION GENERAL: Lying flat in bed, complaining that it is cold. She is in no apparent distress. Snoring when asleep, easy to awake, to touch localizes the pain. VITAL SIGNS: In the emergency room when seen by this author blood pressure 94/ 56, heart rate 99, respiratory rate is 14, 100% on 2 L, and T-max in the emergency room 96.8. HEENT: Oropharynx is clear. Moist mucous membranes. No lesions inside of her mouth or bite luevano, bruising. Her eyes are approximately 2 to 3 mm constrict to light, equal, and reactive. NECK: She has no cervical or supraclavicular lymphadenopathy. LUNGS: Clear to auscultation anteriorly. HEART: She has a regular rate and rhythm. No murmurs, rubs, or gallops. ABDOMEN: Soft, nontender, and nondistended. EXTREMITIES: Warm and well perfused. She has 1 to 2+ lower extremity edema with overlying erythema. She has bruising of her right dorsal hand with a needle brandie as well as in her left antecubital fossa. She is alert and oriented x3. Rest of cranial nerves were not tested. Gait not assessed. DIAGNOSTIC STUDIES/LAB DATA: Reviewed. Urine toxicology is negative for all substances with valproic acid still pending. Her urine is concentrated with specific gravity 1.026. BUN 17, creatinine 0.71. Serum glucose 178. TSH 1.42. Liver enzymes within normal limits. Hemoglobin 11.6 and hematocrit 36 with MCV 84. EKG reviewed, sinus tachycardia ventricular rate of 94, left axis, normal limit intervals, good R-wave progression, and no Q-waves, and no ST or T-wave changes. Chest x-ray, evidence of COPD and suggestion of pulmonary vascular congestion and brain CT, no acute intracranial pathology. ASSESSMENT AND PLAN: This 56-year-old female with history of bipolar disorder recently discharged from [facility] with waldo and psychotic symptoms presenting unresponsive, concern for intentional overdose. Decreased level of consciousness, suspect in the setting of medication overdose. Valproate level still pending. Admit to ICU and continue frequent neuro checks. Continue 2 additional liters of normal saline. Hold all psychiatric medications. We will be placed on 1 to 1. Alert Psychiatry to her admission. Additionally check lower extremity Dopplers, ABG, and chest x-ray as above. Hemodynamic status, lower blood pressure of 3 L bolus as indicated above. Lower extremity swelling, check lower extremity Dopplers, may need diuresis in the future and none currently based on blood pressure. Elevated fingerstick glucose. Check hemoglobin A1C. DVT prophylaxis. Heparin subcu. CC: Dr. Joseph; Dr. Rivera * [id number]/CPS #: [id number] [facility] HOSPITALJudd
[2016-11-12] MEDS: Heparin VIAL(*) 5000 UNITS/ML VIAL (FIVE THOUSAND) SUBCUT SCH ×2 (13:26→21:19)
[2016-11-13] MEDS: Heparin VIAL(*) 5000 UNITS/ML VIAL (FIVE THOUSAND) SUBCUT SCH ×3 (05:43→22:48)
[2016-11-13 06:21] LABS: Hematocrit 34 % (35-47); Hemoglobin 11.2 g/dl (12.0-16.0); Mean Corpuscular HGB Conc 33 g/dl (31-36); Mean Corpuscular Hemoglobin 27 pg (27-31); Mean Corpuscular Volume 84 fL (80-97); Mean Platelet Volume 7 um3 (7.4-10.4); Red Cell Distribution Width 14 % (10.5-15); White Blood Count 6.3 10^3/ul (3.5-10.8)
[2016-11-13 07:01] LABS: BUN/Creatinine Ratio 20.3 (8-20); Calcium 8.4 mg/dL (8.6-10.3); EGFR African American 136.6 (>60); EGFR Non-African American 106.2 (>60); Potassium 4.2 mmol/L (3.5-5.0)
--- NOTE | 2016-11-13 12:37 | PN ---
Subjective Date of Service: 11/13/16 Interval History: Pt transferred out of ICU yesterday after she became more alert. Today she indicates that she did not attempt an overdose. I asked patient why she told me yesterday that she "tried to kill myself." She gives multiple conflicting reports. At one point she reports her brother told her this and that is why she said it. When I informed her that her brother had not seen her she reports that her zyprexa made her dizzy. Later she tells me that it was ambien that made her pass out and she did not take more than prescribed. I did check ISTOP and no ambien has been prescribed to her and she was not discharged with this medication. She tells this author she does not want to go back to [facility] Objective Active Medications: Divalproex Sodium (Depakote Er Tab(*)) 1,000 mg PO BEDTIME [facility] Heparin Sodium (Porcine) (Heparin Vial(*)) 5,000 units SUBCUT Q8HR [facility] Last Admin: 11/13/16 05:43 Dose: 5,000 units Olanzapine (Zyprexa *Odt*) 10 mg PO BEDTIME [facility] Vital Signs 11/12/16 11/12/16 11/12/16 13:00 13:09 13:10 Temperature Pulse Rate 95 95 Respiratory 18 Rate Blood Pressure 122/70 (mmHg) O2 Sat by Pulse 98 98 Oximetry 11/12/16 11/12/16 11/12/16 13:15 13:30 13:45 Temperature Pulse Rate 99 97 94 Respiratory 18 20 18 Rate Blood Pressure 128/112 133/54 116/88 (mmHg) O2 Sat by Pulse 96 98 100 Oximetry 11/12/16 11/12/16 11/12/16 14:00 15:00 15:04 Temperature Pulse Rate 96 96 97 Respiratory 20 22 19 Rate Blood Pressure 125/78 111/69 (mmHg) O2 Sat by Pulse 96 94 94 Oximetry 11/12/16 11/12/16 11/12/16 15:59 16:00 16:50 Temperature 98.1 F 97.6 F Pulse Rate 87 99 Respiratory 17 18 Rate Blood Pressure 109/42 96/67 (mmHg) O2 Sat by Pulse 94 98 Oximetry 11/12/16 11/12/16 11/12/16 19:58 20:00 23:51 Temperature 97.6 F Pulse Rate 75 101 Respiratory 18 16 16 Rate Blood Pressure 107/93 122/65 (mmHg) O2 Sat by Pulse 95 Oximetry 11/13/16 08:16 Temperature 97.7 F Pulse Rate 89 Respiratory 18 Rate Blood Pressure 113/54 (mmHg) O2 Sat by Pulse 94 Oximetry Oxygen Devices in Use Now: None Appearance: NAD Eyes: No Scleral Icterus, PERRLA Ears/Nose/Mouth/Throat: NL Teeth, Lips, Gums, Mucous Membranes Moist Neck: NL Appearance and Movements; NL JVP, Trachea Midline Respiratory: Symmetrical Chest Expansion and Respiratory Effort, Clear to Auscultation Cardiovascular: RRR Abdominal: NL Sounds; No Tenderness; No Distention, No Hepatosplenomegaly Lymphatic: No Cervical Adenopathy Extremities: - - 1-2+ LE edema Skin: No Rash or Ulcers Neurological: Alert and Oriented x 3 Result Diagrams: 11/13/16 05:28 11/13/16 05:28 Assess/Plan/Problems-Billing Assessment: 56 F recent stay at [facility] now returning with suspected intentional overdose - Patient Problems (1) Overdose Comment: valproate levels declining stable for discharge to home or [facility] depending on psychiatrist evaluation Her inconsistent story and history of SI and parasuicidal behaviors leads this authur to believe this was additional attempt. Will wait on formal evaluation (2) Bipolar 1 disorder Comment: restart depakote and zyprexa (3) DVT prophylaxis Comment: HSQ
[2016-11-13] MEDS: Acetaminophen TAB* 325 MG PO PRN (14:15)
[2016-11-13] MEDS ORDERED: OLANzapine TAB*ODT* 10 MG TAB PO SCH (21:00)
[2016-11-13] MEDS ORDERED: Divalproex ER TAB(*) 500 MG PO SCH (21:00)
[2016-11-14] MEDS: Acetaminophen TAB* 325 MG PO PRN (02:26)
[2016-11-14] MEDS: Heparin VIAL(*) 5000 UNITS/ML VIAL (FIVE THOUSAND) SUBCUT SCH (05:42)
[2016-11-14 08:46] VITALS: BP 118/63
--- NOTE | 2016-11-14 16:33 | ED ---
Jasbir Cook Matthew, scribed for Filippo Cantrell MD on 11/12/16 at 0818 . Substance Abuse/Use - HPI Summary HPI Summary: A 56 y/o female presents to the ED unresponsive. Per EMS, the patients daughter heard a loud thump then found the patient down and snoring. She was given 2mg of Narcan by EMS VEHICLE CHECK IN CLERK with no response. The patient is a LEVEL 5 CAVEAT. 09:38 Re-Evaluation The patient states that she overdosed on Tylenol PM, depakote, and effexor at 04 :30 this morning. She stated that she tried to kill herself. She denies taking any street drugs. - History Of Current Complaint Stated Complaint: UNRESPONSIVE Hx Obtained From: EMS Hx From Patient Unobtainable Due To: Altered Mental Status ?: No - Allergies/Home Medications Allergies/Adverse Reactions: Allergies Allergy/AdvReac Type Severity Reaction Status Date / Time Bee Venom Allergy Hives Verified 10/09/16 00:45 KIWI Allergy SCRATCHY Uncoded 12/29/14 15:54 THROAT, RUNNY NOSE AND THROAT PMH/Surg Hx/FS Hx/Imm Hx Endocrine/Hematology History: Reports: Hx Anemia - ON SUPPLEMENTS FOR Denies: Hx Anticoagulant Therapy, Hx Blood Disorders, Hx Blood Transfusions, Hx Diabetes, Hx Thyroid Disease, Hx Unexplained Bleeding Cardiovascular History: Denies: Hx Aneurysm, Hx Atrial Fibrillation, Hx Hypertension, Hx Myocardial Infarction, Hx Pacemaker/ICD Respiratory History: Reports: Hx Sleep Apnea - HAS A CPAP MACHINE BUT IS NOT USING IT AT THIS TIME- STATES NEEDS A CORD Denies: Hx Asthma, Hx Chronic Obstructive Pulmonary Disease (COPD) History: Denies: Hx Renal Disease Musculoskeletal History: Reports: Hx Arthritis - BOTH KNEE - tx'd w/ naproxen Sensory History: Reports: Hx Contacts or Glasses Denies: Hx Hearing Aid Opthamlomology History: Reports: Hx Contacts or Glasses Neurological History: Reports: Hx Seizures - Per pt-"zones out" Denies: Hx Dementia Psychiatric History: Reports: Hx Anxiety - ON MEDICATION FOR, Hx Depression - ON MEDICATION FOR Denies: Hx Eating Disorder, Hx Panic Disorder, Hx of Violent Episodes Against Others, Hx Substance Abuse - Surgical History Surgery Procedure, Year, and Place: LEFT [place]ENISC[place] [facility] [place] Left knee replacement-2012 Hx Anesthesia Reactions: No Infectious Disease History: Reports: Hx of Known/Suspected MRSA - Per pt-Right lower anterior leg dx-2015 Denies: Hx Clostridium Difficile, Hx Hepatitis, Hx Human Immunodeficiency Virus (HIV) - Family History Known Family History: Positive: Other - schizophrenia, bipolar disorder, depression, alcohol abuse, breast CA - Social History Alcohol Use: None Hx Substance Use: No Substance Use Type: Reports: None Hx Tobacco Use: No Smoking Status (MU): Former Smoker Review of Systems - ROS Summary Review of Systems Summary: A complete ROS is unable to be obtained, because the patient is unresponsive. She is a LEVEL 5 CAVEAT. All Other Systems Reviewed And Are Negative: No Physical Exam - Summary Physical Exam Summary: The patient is whimpering to painful stimuli. Triage Information Reviewed: Yes Vital Signs On Initial Exam: Initial Vitals Temp Pulse Resp BP Pulse Ox 36.0 C 96 20 100/60 95 11/12/16 08:34 11/12/16 08:34 11/12/16 08:34 11/12/16 08:34 11/12/16 08:34 Vital Signs Reviewed: Yes Completion Of Physical Exam Limited Due To: Altered Mental Status Appearance: Positive: Obese Skin: Positive: Warm, Dry Head/Face: Positive: Other - Normocephalic; Atraumatic Eyes: Positive: Other: - Pin point pupils Dental: Negative: Cervical Lymphadenopathy Neck: Positive: Supple, No Lymphadenopathy Respiratory/Lung Sounds: Positive: Breath Sounds Present, Other - Normal Effort. Negative: Rales, Stridor, Tracheal Deviation, Wheezes Cardiovascular: Positive: RRR. Negative: Murmur Musculoskeletal: Positive: Other - Bruising with a puncture wound on the dorsum of her right hand. Negative: Edema Left, Edema Right Diagnostics - Vital Signs Vital Signs Temp Pulse Resp BP Pulse Ox 11/12/16 08:34 36.0 C 96 20 100/60 95 - Laboratory Lab Results: Lab Results 11/12/16 11/12/16 11/12/16 Range/Units 08:30 08:30 08:30 WBC 6.9 (3.5-10.8) 10^3/ul RBC 4.30 (4.0-5.4) 10^6/ul Hgb 11.6 L (12.0-16.0) g/dl Hct 36 (35-47) % MCV 84 (80-97) fL MCH 27 (27-31) pg MCHC 32 (31-36) g/dl RDW 14 (10.5-15) % Plt Count 173 (150-450) 10^3/ul MPV 7 L (7.4-10.4) um3 Neut % (Auto) 76.4 (38-83) % Lymph % (Auto) 14.5 L (25-47) % Marin % (Auto) 7.9 (1-9) % Eos % (Auto) 0.9 (0-6) % Baso % (Auto) 0.3 (0-2) % Absolute Neuts (auto) 5.3 (1.5-7.7) 10^3/ul Absolute Lymphs (auto) 1.0 (1.0-4.8) 10^3/ul Absolute Monos (auto) 0.5 (0-0.8) 10^3/ul Absolute Eos (auto) 0.1 (0-0.6) 10^3/ul Absolute Basos (auto) 0 (0-0.2) 10^3/ul Absolute Nucleated RBC 0.01 10^3/ul Nucleated RBC % 0.1 Sodium 136 (133-145) mmol/L Potassium 3.7 (3.5-5.0) mmol/L Chloride 105 (101-111) mmol/L Carbon Dioxide 23 (22-32) mmol/L Anion Gap 8 (2-11) mmol/L BUN 17 (6-24) mg/dL Creatinine 0.71 (0.51-0.95) mg/dL Est GFR ( Amer) 110.3 (>60) Est GFR (Non-Af Amer) 85.8 (>60) BUN/Creatinine Ratio 23.9 H (8-20) Glucose 178 H (70-100) mg/dL Hemoglobin A1c 6.2 H (Less than 6.0) % Calcium 8.5 L (8.6-10.3) mg/dL Total Bilirubin 0.20 (0.2-1.0) mg/dL AST 18 (13-39) U/L ALT 21 (7-52) U/L Alkaline Phosphatase 60 (34-104) U/L Troponin I 0.01 (<0.04) ng/mL Total Protein 6.4 (6.4-8.9) g/dL Albumin 3.5 (3.2-5.2) g/dL Globulin 2.9 (2-4) g/dL Albumin/Globulin Ratio 1.2 (1-3) TSH 1.42 (0.34-5.60) mcIU/mL Urine Color Urine Appearance Urine pH (5-9) Ur Specific [place] (1.010-1.030) Urine Protein (Negative) Urine Ketones (Negative) Urine Blood (Negative) Urine Nitrate (Negative) Urine Bilirubin (Negative) Urine Urobilinogen (Negative) Ur Leukocyte Esterase (Negative) Urine Glucose (Negative) Urine Ascorbic Acid (Negative) Salicylates < 2.50 (<30) mg/dL Urine Opiates Screen (None Detect) Acetaminophen < 15 mcg/mL Ur Barbiturates Screen (None Detect) Valproic Acid 76.0 (50-100) mcg/mL Ur Phencyclidine Scrn (None Detect) Ur Amphetamines Screen (None Detect) U Benzodiazepines Scrn (None Detect) Urine Cocaine Screen (None Detect) U Cannabinoids Screen (None Detect) Serum Alcohol < 10 (<10) mg/dL 11/12/16 11/12/16 Range/Units 08:55 08:55 WBC (3.5-10.8) 10^3/ul RBC (4.0-5.4) 10^6/ul Hgb (12.0-16.0) g/dl Hct (35-47) % MCV (80-97) fL MCH (27-31) pg MCHC (31-36) g/dl RDW (10.5-15) % Plt Count (150-450) 10^3/ul MPV (7.4-10.4) um3 Neut % (Auto) (38-83) % Lymph % (Auto) (25-47) % Marin % (Auto) (1-9) % Eos % (Auto) (0-6) % Baso % (Auto) (0-2) % Absolute Neuts (auto) (1.5-7.7) 10^3/ul Absolute Lymphs (auto) (1.0-4.8) 10^3/ul Absolute Monos (auto) (0-0.8) 10^3/ul Absolute Eos (auto) (0-0.6) 10^3/ul Absolute Basos (auto) (0-0.2) 10^3/ul Absolute Nucleated RBC 10^3/ul Nucleated RBC % Sodium (133-145) mmol/L Potassium (3.5-5.0) mmol/L Chloride (101-111) mmol/L Carbon Dioxide (22-32) mmol/L Anion Gap (2-11) mmol/L BUN (6-24) mg/dL Creatinine (0.51-0.95) mg/dL Est GFR ( Amer) (>60) Est GFR (Non-Af Amer) (>60) BUN/Creatinine Ratio (8-20) Glucose (70-100) mg/dL Hemoglobin A1c (Less than 6.0) % Calcium (8.6-10.3) mg/dL Total Bilirubin (0.2-1.0) mg/dL AST (13-39) U/L ALT (7-52) U/L Alkaline Phosphatase (34-104) U/L Troponin I (<0.04) ng/mL Total Protein (6.4-8.9) g/dL Albumin (3.2-5.2) g/dL Globulin (2-4) g/dL Albumin/Globulin Ratio (1-3) TSH (0.34-5.60) mcIU/mL Urine Color Yellow Urine Appearance Clear Urine pH 5.0 (5-9) Ur Specific [place] 1.026 (1.010-1.030) Urine Protein Negative (Negative) Urine Ketones 1+ H (Negative) Urine Blood Negative (Negative) Urine Nitrate Negative (Negative) Urine Bilirubin Negative (Negative) Urine Urobilinogen Negative (Negative) Ur Leukocyte Esterase Negative (Negative) Urine Glucose Negative (Negative) Urine Ascorbic Acid * H (Negative) Salicylates (<30) mg/dL Urine Opiates Screen None detected (None Detect) Acetaminophen mcg/mL Ur Barbiturates Screen None detected (None Detect) Valproic Acid (50-100) mcg/mL Ur Phencyclidine Scrn None detected (None Detect) Ur Amphetamines Screen None detected (None Detect) U Benzodiazepines Scrn None detected (None Detect) Urine Cocaine Screen None detected (None Detect) U Cannabinoids Screen None detected (None Detect) Serum Alcohol (<10) mg/dL Result Diagrams: 11/13/16 05:28 11/13/16 05:28 Lab Statement: Any lab studies that have been ordered have been reviewed, and results considered in the medical decision making process. - CT Brain CT CT Interpretation: No Acute Changes - IMPRESSION: NO ACUTE INTRACRANIAL PATHOLOGY. CT Interpretation Completed By: Radiologist - EKG 08:00 Cardiac Rate: NL - 94 bpm EKG Rhythm: Sinus Rhythm EKG Interpretation: QT interval 364; QTc 456; No STEMI Re-Evaluation - Re-Evaluation First Eval Re-Evaluation Time: 09:23 Change: Unchanged Comment: The patient is unresponsive. She is sating at 100% on 1L of oxygen. Course/Dx - Diagnoses Provider Diagnoses: OVERDOSE, Delirium - Physician Notifications Discussed Care Of Patient With: Poison Control at 9:35 -- Notified of patient's history and they recommend repeating depakote and tylenol levels in 4-[address] Perla (Hospitalist) at 09:48 -- Notified of patient's history and will admit the patient into his services. Discharge - Discharge Plan Condition: Stable Disposition: ADMITTED TO [facility] The documentation as recorded by the Jasbir ramirez Matthew accurately reflects the service I personally performed and the decisions made by me, Filippo Cantrell MD.
--- NOTE | 2016-11-14 16:58 | CONS ---
CONSULTATION REPORT: DATE OF CONSULTATION: 11/14/16 IDENTIFYING DATA: Una is a 56-year-old employed female known to this facility for multiple psychiatric and medical hospitalizations who was admitted to medical floor immediately after her discharge from the Behavioral Health Unit in an unresponsive state. HISTORY OF PRESENT ILLNESS: This 56-year-old white female, who was discharged from [address] [place] [address] on 10/22/16, was doing well and went back to work. On the day of admission, she was found unresponsive on her bedroom floor while her daughter who happened to be there at that night, she called ambulance and Una was brought to the emergency department and she was admitted to medical floor on . It is unclear what happened leading up to her unresponsiveness as Una denies she intentionally overdosed on anything and she continues to deny any suicidal or homicidal ideation. She verbalized some concerns about her psychotropic medications specifically Zyprexa, which she was not tolerating as much. Historically, she has history of intolerance to both typical and atypical antipsychotics more specifically because of EPS. Some of the atypical antipsychotics makes her extremely sedated that is why she declines to beyond those atypical antipsychotics, one of them is Seroquel, the other Zyprexa. Apparently, Una verbalized to one of the evaluators that at time, she thinks about suicide; however, this time she was not suicidal in any way. When I saw her on the medical floor, she was laying in bed, recognized me immediately, and appeared to be happy to see me. She denies any symptoms of depression, waldo, hypomania, or any psychosis. Does not have any recollection of that night when she became unresponsive. Only thing, she remembers that she wanted to use the restroom. She hit her head when she fell and a CT scan was performed here in the emergency department, which was negative. Today, she is euthymic, denies any violent thoughts, also denies any psychotic symptoms. She is alert and oriented to time, place, and person. Her intelligence appears to be average as evidenced by her vocabulary, educational background, and fund of knowledge. Her insight and judgement appears to be intact. ASSESSMENT AND PLAN: It is a possible oversedation from excessive amount of medications versus accidental overdose versus a syncopal attack. I do not see any rationale for transferring this patient to Behavioral Health Unit here or anywhere else. She is psychiatrically cleared to be discharged when she is medically cleared by her hospitalist. The patient has agreed to take 1 mg of Risperdal p.o. at night for psychosis and mood dysregulation. Risks, benefits, and alternatives were discussed in detail. She verbalized her understanding and reported that she was on Risperdal once in the past and did fairly well and would like to consider at this time. I also discussed my plan with her attending hospitalist, Dr. Perla, who was in agreement to consider a discharge home and initiate 1 mg of Risperdal at night. Once again, I really appreciate the opportunity to participate in Ms. Ward's care on the medical unit. [id number]/CPS #: [id number]
--- NOTE | 2016-11-14 19:25 | DS ---
DISCHARGE SUMMARY: DATE OF ADMISSION: 11/12/16 DATE OF DISCHARGE: 11/14/16 PRIMARY CARE PROVIDERS: Dr. Joseph as well as Dr. Lisa Rivera, [facility]. PRIMARY DIAGNOSIS: Increased level of lethargy. SECONDARY DIAGNOSES: Include: 1. Bipolar 1. 2. History of suicidal behavior. 3. Concern for obstructive sleep apnea. CONSULTATION OBTAINED DURING HOSPITAL STAY: Psychiatry from Dr. Morris. MEDICATIONS ON DISCHARGE: Include: 1. Risperidone 1 mg at bedtime. 2. Depakote ER 1000 mg at bedtime. 3. Biotin mouthwash 1 spray every 3 hours as needed for dry mouth. 4. Multivitamin with iron 1 tab daily. 5. Polysaccharide iron complex 150 mg daily. MEDICATION DISCONTINUED ON DISCHARGE: Zyprexa. HISTORY OF PRESENT ILLNESS AND HOSPITAL COURSE: This is a 56-year-old female with past medical history as outlined in the history of present illness on the day of admission including type 1 bipolar disorder, recent stay in mental health unit, discharged on 10/22/16, who was found down in her room by her daughter on the day of admission with decreased level of responsiveness. She presented to the hospital while there was concern for possible overdose. At the time of presentation, she had decreased cognition, but did indicate that she tried to kill herself. Her urine toxicology noted valproate level that was within normal limits and decreased with its cessation. She woke up without intervention and careful monitoring. When she regained the level of consciousness, she denied any suicidal attempt. She blamed Ambien, which she had taken at home, although this author does note that I- STOP was reviewed and there are no prescriptions for Ambien to the patient. She does indicate she received it from [facility]. This is not reflected in the I- STOP record. This was discussed with Dr. Morris from Psychiatry who consulted on the patient on the day of discharge. He believes that the patient's decreased level of responsiveness was secondary to medication effects, potentially Zyprexa with or without Ambien. He does not find her to be acute threat to herself and does not think she warrants inpatient psychiatric hospital stay. Dr. Morris has recommended discontinuation of Zyprexa and starting risperidone 1 mg at bedtime , which he discussed with the patient and I will prescribe to [facility]. I additionally discussed with the patient. She denies any suicidal ideation at this time. She denied depression. There is no evidence of current waldo or psychotic symptoms. There are no complications with this patient's hospital stay. Reasons to return to the hospital including, but not limited to recurrent or worsening symptoms, decreased mental status, loss of consciousness, shortness of breath, chest pain, nausea, vomiting, lightheadedness, fevers, the feeling of depression or that she may harm herself or others discussed with the patient. She acknowledged understanding, contracted for safety. TIME SPENT: Greater than 45 minutes were spent discharging this patient with greater than half spent [id number] with the patient. CC: Dr. Joseph; Dr. Lisa Rivera* [id number]/CPS #: [id number] MTDD
== END 2016-11-14 12:05 | disposition home or self-care (01) | DRG 948 ==
LOC: ED 08:04 → ICU 10:42 → MED 15:59
PROVIDERS: ADMIT Internal Medicine; ATTEND Internal Medicine
DX: R53.83 Other fatigue (principal); F31.9 Bipolar disorder, unspecified; T43.595A Adverse effect of other antipsychotics and neuroleptics, initial encounter; G47.33 Obstructive sleep apnea (adult) (pediatric); Z79.899 Other long term (current) drug therapy; Z91.030 Bee allergy status; Z91.018 Allergy to other foods; Z80.0 Family history of malignant neoplasm of digestive organs; Z82.49 Family history of ischemic heart disease and other diseases of the circulatory system; Y92.009 Unspecified place in unspecified non-institutional (private) residence as the place of occurrence of the external cause
CPT/HCPCS: 36415; 36600; 70450; 71010; 80048; 80053; 80164; 80307; 80320; 80329; 81003; 82803; 83036; 84443; 84484; 85025; 93005; 93970; A9270-GY; G0480; J1644; J2310

== ENCOUNTER 2016-11-27 02:10 | Emergency (ER) | payer MEDICARE, MEDICAID ==
[2016-11-27 03:11] LABS: Hematocrit 37 % (35-47); Hemoglobin 12.1 g/dl (12.0-16.0); Mean Corpuscular HGB Conc 33 g/dl (31-36); Mean Corpuscular Hemoglobin 27 pg (27-31); Mean Corpuscular Volume 82 fL (80-97); Mean Platelet Volume 7 um3 (7.4-10.4); Red Blood Count 4.47 10^6/ul (4.0-5.4); Red Cell Distribution Width 13 % (10.5-15); White Blood Count 10.1 10^3/ul (3.5-10.8)
[2016-11-27 03:20] LABS: ALT 15 U/L (7-52); AST 14 U/L (13-39); Albumin 3.8 g/dL (3.2-5.2); Alkaline Phosphatase 66 U/L (34-104); Anion Gap 3 mmol/L (2-11); BUN/Creatinine Ratio 23.7 (8-20); Blood Urea Nitrogen 18 mg/dL (6-24); CO2 Carbon Dioxide 26 mmol/L (22-32); Calcium 8.9 mg/dL (8.6-10.3); Chloride 106 mmol/L (101-111); EGFR Non-African American 79.3 (>60); Globulin 3.2 g/dL (2-4); Glucose 119 mg/dL (70-100); Potassium 3.8 mmol/L (3.5-5.0); Sodium 135 mmol/L (133-145)
[2016-11-27 03:46] LABS: Acetaminophen < 15 mcg/mL; Alcohol < 10 mg/dL (<10); Salicylate < 2.50 mg/dL (<30)
[2016-11-27 03:56] LABS: TSH (Thyroid Stimulating Horm) 0.71 mcIU/mL (0.34-5.60)
[2016-11-27 04:04] LABS: Urine Bacteria 2+ (Absent); Urine Bilirubin Negative (Negative); Urine Glucose Negative (Negative); Urine Nitrite Negative (Negative)
[2016-11-27 04:16] LABS: Benzodiazepine Urine Screen None Detected (None Detect)
[2016-11-27 05:08] VITALS: BP 105/60
--- NOTE | 2016-11-27 06:27 | ED ---
Jasbir Cook Matthew, scribed for Bipin Curry on 11/27/16 at 0301 . Altered Mental Status - HPI Summary HPI Summary: A 56 y/o female presents to the ED for altered mental status. The patient states that she feels like her family and herself are in danger. No SI and she is not hearing voices. Hx of bipolar disorder and feels like her medication is not working. FHx of bipolar disorder. - History Of Current Complaint Stated Complaint: MHE Time Seen by Provider: 11/27/16 02:14 Hx Obtained From: Patient Hx From Patient Unobtainable Due To: Altered Mental Status Onset/Duration: Still Present Timing: Constant Severity Initially: Moderate Severity Currently: Moderate Aggravating Factor(s): Unknown Alleviating Factor(s): Unknown Associated Signs And Symptoms: Positive: Negative - Allergies/Home Medications Allergies/Adverse Reactions: Allergies Allergy/AdvReac Type Severity Reaction Status Date / Time Bee Venom Allergy Hives Verified 11/27/16 03:11 KIWI Allergy SCRATCHY Uncoded 11/27/16 03:11 THROAT, RUNNY NOSE AND THROAT PMH/Surg Hx/FS Hx/Imm Hx Endocrine/Hematology History: Reports: Hx Anemia - ON SUPPLEMENTS FOR Denies: Hx Anticoagulant Therapy, Hx Blood Disorders, Hx Blood Transfusions, Hx Diabetes, Hx Thyroid Disease, Hx Unexplained Bleeding Cardiovascular History: Denies: Hx Aneurysm, Hx Atrial Fibrillation, Hx Hypertension, Hx Myocardial Infarction, Hx Pacemaker/ICD Respiratory History: Reports: Hx Sleep Apnea - HAS A CPAP MACHINE BUT IS NOT USING IT AT THIS TIME- STATES NEEDS A CORD Denies: Hx Asthma, Hx Chronic Obstructive Pulmonary Disease (COPD) History: Denies: Hx Renal Disease Musculoskeletal History: Reports: Hx Arthritis - BOTH KNEE - tx'd w/ naproxen Sensory History: Reports: Hx Contacts or Glasses Denies: Hx Hearing Aid Opthamlomology History: Reports: Hx Contacts or Glasses Neurological History: Reports: Hx Seizures - Per pt-"zones out" Denies: Hx Dementia Psychiatric History: Reports: Hx Anxiety - ON MEDICATION FOR, Hx Depression - ON MEDICATION FOR, Hx Inpatient Treatment, Hx Bipolar Disorder, Hx Suicide Attempt - 2012 Denies: Hx Eating Disorder, Hx Panic Disorder, Hx of Violent Episodes Against Others, Hx Substance Abuse - Surgical History Surgery Procedure, Year, and Place: LEFT KNEE MENISCUS REPAIR- [facility]. Left knee replacement-2012 Hx Anesthesia Reactions: No Infectious Disease History: Reports: Hx of Known/Suspected MRSA - Per pt-Right lower anterior leg dx-2015 Denies: Hx Clostridium Difficile, Hx Hepatitis, Hx Human Immunodeficiency Virus (HIV) - Family History Known Family History: Positive: Other - schizophrenia, bipolar disorder, depression, alcohol abuse, breast CA - Social History Alcohol Use: None Hx Substance Use: No Substance Use Type: Reports: None Hx Tobacco Use: No Smoking Status (MU): Former Smoker Review of Systems Constitutional: Negative Eyes: Negative ENT: Negative Cardiovascular: Negative Respiratory: Negative Gastrointestinal: Negative Genitourinary: Negative Musculoskeletal: Negative Skin: Negative Neurological: Negative Psychological: Other - Feels her family and herself are in danger All Other Systems Reviewed And Are Negative: Yes Physical Exam Triage Information Reviewed: Yes Vital Signs On Initial Exam: Temp Pulse Resp BP Pulse Ox 98.5 F 96 18 132/85 97 11/27/16 02:27 11/27/16 02:27 11/27/16 02:27 11/27/16 02:27 11/27/16 02:27 Vital Signs Reviewed: Yes Appearance: Positive: Well-Appearing, No Pain Distress Skin: Positive: Warm, Skin Color Reflects Adequate Perfusion, Dry Head/Face: Positive: Normal Head/Face Inspection Eyes: Positive: EOMI, LYNDSEY ENT: Positive: Normal ENT inspection Neck: Positive: Supple, Nontender Respiratory/Lung Sounds: Positive: Clear to Auscultation, Breath Sounds Present Cardiovascular: Positive: RRR, Pulses are Symmetrical in both Upper and Lower Extremities Abdomen Description: Positive: Nontender, Soft Bowel Sounds: Positive: Present Musculoskeletal: Positive: Normal, Strength/ROM Intact Neurological: Positive: Normal, Sensory/Motor Intact, Alert, Oriented to Person Place, Time Diagnostics - Laboratory Result Diagrams: 11/27/16 02:55 11/27/16 02:55 Lab Statement: Any lab studies that have been ordered have been reviewed, and results considered in the medical decision making process. Altered Mental Statu Course/Dx - Course Assessment/Plan: The patient was evaluated by mental health and they recommend the patient be discharged home with outpatient follow-up. - Diagnoses Discharge Diagnoses: Bipolar disorder Discharge - Discharge Plan Condition: Stable Disposition: HOME The documentation as recorded by the Jasbir ramirez Matthew accurately reflects the service I personally performed and the decisions made by me, Bipin Curry.
--- NOTE | 2016-11-30 11:02 | ED ---
Progress - Progress Note Progress Note: Pt's urine cx reveals e. coli UTI. She was not d/c'd with anbx. Attempted to call but phone continuously rang until a high pitched sound came on - no option to leave a message. Will mail letter. santosh Cantor, aware. - Consult/PCP Time Called: 03:44 Course/Dx - Diagnoses Provider Diagnoses: Bipolar disorder
== END 2016-11-27 06:35 | disposition home or self-care (01) ==
LOC: ED 02:10
DX: F31.9 Bipolar disorder, unspecified (principal); R41.82 Altered mental status, unspecified; Z87.891 Personal history of nicotine dependence
CPT/HCPCS: 36415; 80053; 80307; 80320; 80329; 81003; 81015; 84443; 85025; 87077; 87086; 87186; 99283; G0480

== ENCOUNTER 2016-11-29 21:57 | Inpatient (IN) | payer MEDICARE, MEDICAID ==
[2016-11-29 22:47] LABS: Hematocrit 39 % (35-47); Hemoglobin 12.4 g/dl (12.0-16.0); Mean Corpuscular HGB Conc 32 g/dl (31-36); Mean Corpuscular Hemoglobin 27 pg (27-31); Mean Corpuscular Volume 83 fL (80-97); Mean Platelet Volume 7 um3 (7.4-10.4); Red Blood Count 4.63 10^6/ul (4.0-5.4); Red Cell Distribution Width 14 % (10.5-15); White Blood Count 6.5 10^3/ul (3.5-10.8)
[2016-11-29 22:59] LABS: ALT 18 U/L (7-52); AST 16 U/L (13-39); Albumin 4.1 g/dL (3.2-5.2); Alkaline Phosphatase 64 U/L (34-104); Anion Gap 6 mmol/L (2-11); BUN/Creatinine Ratio 23.9 (8-20); Blood Urea Nitrogen 17 mg/dL (6-24); CO2 Carbon Dioxide 29 mmol/L (22-32); Calcium 9.3 mg/dL (8.6-10.3); Chloride 104 mmol/L (101-111); EGFR African American 110.3 (>60); EGFR Non-African American 85.8 (>60); Globulin 3.2 g/dL (2-4); Glucose 82 mg/dL (70-100); Potassium 3.9 mmol/L (3.5-5.0); Sodium 139 mmol/L (133-145); Total Protein 7.3 g/dL (6.4-8.9)
[2016-11-29 23:02] LABS: Urine Bacteria 1+ (Absent); Urine Bilirubin Negative (Negative); Urine Glucose Negative (Negative); Urine Nitrite Negative (Negative)
[2016-11-29 23:06] LABS: Benzodiazepine Urine Screen None Detected (None Detect)
[2016-11-29 23:31] LABS: Acetaminophen < 15 mcg/mL; Alcohol < 10 mg/dL (<10); Salicylate < 2.50 mg/dL (<30)
[2016-11-29] MEDS ORDERED: Levofloxacin TAB* 500 MG PO ONE (23:36)
[2016-11-29 23:41] LABS: TSH (Thyroid Stimulating Horm) 1.55 mcIU/mL (0.34-5.60)
[2016-11-30] MEDS ORDERED: Nicotine Inhaler* 10 MG AMP INH PRN (05:08)
--- NOTE | 2016-11-30 05:18 | ED ---
luz Cook Timothy, scribed for Bipin Curry on 11/29/16 at 2233 . Psychiatric Complaint - HPI Summary HPI Summary: Una Ward is a 56 yo female presenting to [facility] stating that her sign language interpreter wanted her to come in. She states her sign language interpreter believes her medications are not working. Pt states she feels like someone is after her. She denies CP, SI, HI, or other Sx. Her MHx includes seizures, bipolar disorder, depression, anxiety, suicide attempt 2012. - History Of Current Complaint Chief Complaint: EDMentalHealth Time Seen by Provider: 11/29/16 22:20 Hx Obtained From: Patient Onset/Duration: Sudden Onset Timing: Constant Severity Initially: Moderate Severity Currently: Moderate Character: Fearful Associated Signs And Symptoms: Positive: Paranoid Behavior Related History: Positive For: Prior Psychiatric Issues Has Suicidal: Denies: Thoughts, With A Plan Has Homicidal: Denies: Thoughts, With A Plan - Allergies/Home Medications Allergies/Adverse Reactions: Allergies Allergy/AdvReac Type Severity Reaction Status Date / Time Bee Venom Allergy Hives Verified 11/27/16 03:11 KIWI Allergy SCRATCHY Uncoded 11/27/16 03:11 THROAT, RUNNY NOSE AND THROAT Home Medications: Home Medications Albuterol HFA INHALER* [Ventolin HFA Inhaler*] 2 puff INH Q4H PRN 11/30/16 [ History Confirmed 11/30/16] Biotin 1 mg PO DAILY 11/30/16 [History Confirmed 11/30/16] Furosemide TAB* [Lasix TAB*] 20 mg PO DAILY PRN 11/30/16 [History Confirmed ] Glucosamine Sulfate 1,000 mg PO DAILY 11/30/16 [History Confirmed 11/30/16] guaiFENesin ER TAB [Mucinex*] 600 mg PO BID 11/30/16 [History Confirmed 11/30/16 ] PMH/Surg Hx/FS Hx/Imm Hx Endocrine/Hematology History: Reports: Hx Anemia - ON SUPPLEMENTS FOR Denies: Hx Anticoagulant Therapy, Hx Blood Disorders, Hx Blood Transfusions, Hx Diabetes, Hx Thyroid Disease, Hx Unexplained Bleeding Cardiovascular History: Denies: Hx Aneurysm, Hx Atrial Fibrillation, Hx Hypertension, Hx Myocardial Infarction, Hx Pacemaker/ICD Respiratory History: Reports: Hx Sleep Apnea - HAS A CPAP MACHINE BUT IS NOT USING IT AT THIS TIME- STATES NEEDS A CORD Denies: Hx Asthma, Hx Chronic Obstructive Pulmonary Disease (COPD) History: Denies: Hx Renal Disease Musculoskeletal History: Reports: Hx Arthritis - BOTH KNEE - tx'd w/ naproxen Sensory History: Reports: Hx Contacts or Glasses Denies: Hx Hearing Aid Opthamlomology History: Reports: Hx Contacts or Glasses Neurological History: Reports: Hx Seizures - Per pt-"zones out" Denies: Hx Dementia Psychiatric History: Reports: Hx Anxiety - ON MEDICATION FOR, Hx Depression - ON MEDICATION FOR, Hx Inpatient Treatment, Hx Bipolar Disorder, Hx Suicide Attempt - 2012 Denies: Hx Eating Disorder, Hx Panic Disorder, Hx of Violent Episodes Against Others, Hx Substance Abuse - Surgical History Surgery Procedure, Year, and Place: LEFT KNEE MENISCUS REPAIR- [facility] [place]. Left knee replacement-2012 Hx Anesthesia Reactions: No Infectious Disease History: Yes Infectious Disease History: Reports: Hx of Known/Suspected MRSA - Per pt-Right lower anterior leg dx-2015 Denies: Hx Clostridium Difficile, Hx Hepatitis, Hx Human Immunodeficiency Virus (HIV), Traveled Outside the [place] in Last 30 Days - Family History Known Family History: Positive: Other - schizophrenia, bipolar disorder, depression, alcohol abuse, breast CA - Social History Alcohol Use: None Hx Substance Use: No Substance Use Type: Reports: None Hx Tobacco Use: No Smoking Status (MU): Former Smoker Review of Systems Constitutional: Negative Eyes: Negative ENT: Negative Cardiovascular: Negative Respiratory: Negative Gastrointestinal: Negative Genitourinary: Negative Musculoskeletal: Negative Skin: Negative Neurological: Negative Psychological: Other - paranoid All Other Systems Reviewed And Are Negative: Yes Physical Exam Triage Information Reviewed: Yes Vital Signs On Initial Exam: Initial Vitals Temp Pulse Resp BP Pulse Ox 97.4 F 91 18 124/65 95 11/29/16 22:21 11/29/16 22:21 11/29/16 22:21 11/29/16 22:21 11/29/16 22:21 Vital Signs Reviewed: Yes Appearance: Positive: Well-Appearing, No Pain Distress, Well-Nourished Skin: Positive: Warm, Skin Color Reflects Adequate Perfusion, Dry Head/Face: Positive: Normal Head/Face Inspection Eyes: Positive: EOMI, LYNDSEY ENT: Positive: Normal ENT inspection Neck: Positive: Supple, Nontender Respiratory/Lung Sounds: Positive: Clear to Auscultation, Breath Sounds Present Cardiovascular: Positive: RRR, Pulses are Symmetrical in both Upper and Lower Extremities Musculoskeletal: Positive: Normal, Strength/ROM Intact Neurological: Positive: Normal, Sensory/Motor Intact, Alert, Oriented to Person Place, Time Psychiatric: Positive: Affect/Mood Appropriate Diagnostics - Vital Signs Vital Signs Temp Pulse Resp BP Pulse Ox 11/29/16 22:21 97.4 F 91 18 124/65 95 - Laboratory Result Diagrams: 11/29/16 22:35 11/29/16 22:35 Lab Statement: Any lab studies that have been ordered have been reviewed, and results considered in the medical decision making process. Course/Dx - Course Assessment/Plan: Una Ward is a 56 yo female presenting to [facility] at the recommendation of her sign language interpreter; she believes someone is after her. She is cleared for MHUE at 2327. After her MHUE by Dr. Aragon, she will be voluntarily admitted to [facility] for further observation. - Differential Dx/Clinical Impression Provider Diagnosis: Acute psychosis Discharge - Discharge Plan Condition: Stable Disposition: ADMITTED TO [facility] Discharge Disposition Comment: admitted by Dr. Aragon as indicated by her MHUE Referrals: Ronaldo Joseph MD [Primary Care Provider] - The documentation as recorded by the luz ramirez Timothy accurately reflects the service I personally performed and the decisions made by me, Bipin Curry.
[2016-11-30] MEDS ORDERED: Mouth Piece, Nicotine* 1 EACH CARTRIDGE INH ONE (06:00)
[2016-11-30] MEDS: guaiFENesin ER TAB 600 MG PO SCH ×3 (08:55→21:02)
[2016-11-30] MEDS: Furosemide TAB* 20 MG PO PRN (11:05)
--- NOTE | 2016-11-30 12:06 | HP ---
HISTORY AND PHYSICAL: DATE OF ADMISSION: 11/30/16 IDENTIFYING DATA: Una Ward is a 56-year-old , domiciled, employed female who has a history of chronic psychotic disorder and multiple psychiatric hospitalizations, previous suicidal behavior, consideration for bipolar disorder. She is admitted to the psychiatric unit after coming to the hospital by ambulance with request for mental health evaluation and reporting not feeling that "her family was safe." HISTORY OF PRESENT ILLNESS: Una was last discharged from our psychiatric unit on October 22. She has had difficulties since then with emergency room visits with concerns of medication reaction, anxiety and an overdose admission on November 12. During that admission, she acknowledged taking an overdose of Depakote, aspirin, Motrin, and Ambien. She had a brief ICU admission. It was unclear whether or not she had made a suicide attempt. Family reported that she had been emotional the day prior to the overdose and had been more irritable leading up to it. She was evaluated, was not having any ongoing active suicidal ideation, was seen in psychiatric consult and was released home. She reports having resumed difficulty several days ago with increased paranoid ideation that someone is a threat to her and her family. 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 She was interested in being in the hospital for a couple of days "until the storm ends" (there is a snowstorm now). She denied hearing voices or having ideas of reference or paranoid ideation within the milieu of the unit. She reports adherence with her medication regimen and was interested in taking higher dose Risperdal to address symptoms. She reported adherence with clinic visits. She denied bothersome anxiety, although the paranoid ideation seems to make her concerned, and she denied feeling depressed, suicidal or having any violent ideation. She denied the use of alcohol or drugs and denied having any new medical diagnosis. PREVIOUS PSYCHIATRIC HISTORY: Multiple prior psychiatric hospitalizations. She has had jocelyne waldo in the past. She is diagnosed with bipolar I disorder and had psychotic functioning and psychotic symptoms. She has had outpatient care at [facility]. She has a prior history of suicidal behavior. PAST MEDICAL HISTORY: 1. Knee arthritis. 2. Iron deficiency anemia. 3. Shoulder pain. 4. Uterine polyps. LEGAL HISTORY: Denies. ALLERGIES: No known drug allergies. OUTPATIENT MEDICATION REGIMEN: 1. Risperdal 1 mg each bedtime. 2. Mucinex 600 mg b.i.d. 3. Lasix 20 mg daily. 4. Biotin 1 mg daily. 5. Glucosamine sulfate 1000 mg a day. 6. Albuterol inhaler 2 puffs q.4 hours p.r.n. wheezing. 7. Depakote 1000 mg each bedtime. SUBSTANCE USE HISTORY: Denies the use of alcohol or drugs. She has not been evaluated with chronic substance use problems. FAMILY HISTORY: Reported family history of depression in son and daughter, bipolar disorder in biological mother. SOCIAL HISTORY: Una has been for 34 years, has been for the last 14, she has 4 adult daughters and 7 grandchildren. 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 She receives SSI and SST on the basis of psychiatric disability. MENTAL STATUS EXAMINATION: Obese, middle-aged, female who is fairly well- kempt in casual clothing. She is cooperative and psychotically related. She has an intense gaze with long speech latencies. Mood is described as "good. " Affect is unvariable and euthymic. Thought process is impoverished and blocked. Thought content negative for current suicidal or homicidal ideation. She expresses paranoid delusions. Sensorium is clear. She is alert and oriented x3. Insight and judgment is poor and impulse control is intact. PHYSICAL ASSESSMENT: Vital Signs: Temperature is 97.3, blood pressure is 123/ 79, pulse is 80, respiratory rate is 20. REVIEW OF SYSTEMS: Negative for visual changes, neurological symptoms, respiratory difficulties, chest pain, syncope, gastrointestinal distress, elimination symptoms, musculoskeletal problems or skin problems. PHYSICAL EXAMINATION Physical examination is deferred. Una preferred not to have an examination and there is no indication to update it from the history and physical entered by Dr. Perla in October. Una is medically stable for psychiatric hospitalization. CLINICAL SUMMARY: A 56-year-old female with a history of previous suicidal behavior, multiple psychiatric hospitalizations, psychosis, bipolar spectrum condition, she presents in distress with paranoid ideation after a subacute period of difficulties with multiple ER visits and one suspicious overdose. She merits psychiatric hospitalization for safety, stabilization, and treatment plan. ADMISSION DIAGNOSES: 1. Psychotic disorder, not otherwise specified. 2. Schizoaffective disorder, bipolar type. TREATMENT PLAN: Admit to the Psychiatry Unit. Code status is full. Safety checks every 15-minute interval. Initiate comprehensive, group, milieu and individual psychotherapeutic support. Target symptoms are paranoid ideations, elevated distress, and impaired functioning. Medication management will involve increasing Risperdal for effect. Discharge planning will involve coordination with appropriate aftercare. The patient's strengths are her adequate baseline health and her positive help-seeking behaviors and treatment alliances. [id number]/[facility] #: [id number] KVNG
[2016-11-30] MEDS: Ciprofloxacin TAB* 500 MG PO SCH (17:50)
[2016-11-30] MEDS ORDERED: risperiDONE TAB* 1 MG PO SCH (21:00)
[2016-11-30] MEDS: risperiDONE TAB* 3 MG PO SCH (21:01)
[2016-11-30] MEDS: Divalproex ER TAB(*) 500 MG PO SCH (21:02)
[2016-12-01] MEDS: Ciprofloxacin TAB* 500 MG PO SCH ×2 (04:26→17:03)
[2016-12-01] MEDS: guaiFENesin ER TAB 600 MG PO SCH ×2 (09:07→20:50)
[2016-12-01] MEDS: Furosemide TAB* 20 MG PO PRN (09:08)
--- NOTE | 2016-12-01 11:18 | PN ---
MHU: Group Therapy Note - Service Type Service Type: 06132 Group Psychotherapy - Cognitive Behavioral Group Therapy ( CBT):Patient presented in CBT programming as disorganized and disruptive in discussion and needed repeated redirection to attend to presented materials.
--- NOTE | 2016-12-01 12:11 | PN ---
Subjective - Subjective Service Type: 10984 Hosp care 15 min low complexity Subjective: Una reports 'good' mood with no halluinations, paranoia, or dangerous intent or plan. She reports worsened lower extremity edema, has no other physical complaint. Was pacing last night with reduced sleep duration to 4.5 hours per o /n shift note, also observed self-dialoguing. Objective - Appearance Appearance: Obese Dysmorphic Features: No Hygiene: Normal Grooming: Disheveled - Behavior Psychomotor Activities: Abnormal-Decreased - with legs up on couch c/o pain in legs Exhibits Abnormal Movement: No - Attitude and Relatedness Attitude and Relatedness: Cooperative Eye Contact: Good - Speech Quality: Unpressured Latencies: Normal Quantity: Appropriate - Mood Patient's Decription of Mood: "Good" - Affect Observed Affect: Fair Affect Consistent with: Euthymia - Thought Process Patient's Thought Process: Coherent, Goal Directed Thought Content: No Passive Wish, No Suicidal Planning, No Homicidal Ideation, No Paranoid Ideation - Sensorium Experiencing Hallucinations: No, Sensorium is Clear Type of Hallucinations: Visual: No, Auditory: No, Command: No - Level of Consciousness Level of Consciousness: Alert Orientation: Yes Intact, Yes Orientated to Time, Yes Orientated to Place, Yes Orientated to Person - Impulse Control Impulse Control: Intact - Insight and Judgement Insight and Judgement: Poor - Group Participation Particating in Group Activities: Yes - Medication Management Medication Management Adherence: Yes Assessment - Assessment Merits Inpatient Hospitalization: For Immediate Safety, For Stabilization Inpatient DSM-IV Dx: Schizoaffective Disorder, Bipolar Type Clinical Impression: Una has returned to the unit for continued care due to expressed distress at paranoid ideation at the culmination of multiple ED presentations with a suspicious overdose occurring during this run of contacts with the hospital between psychiatric admissions. She has no complaints of side effects since increased dose of Risperdal. She has continued to show signs of psychosis with self-dialoguing. Plan - Plan Treatment Plan: Name: UNA BONNER Birthdate: 1960 [id number] Monitor MS and safety. Encourage groups and milieu. Hospitalist c/s regarding increased LE edema, 'shiny' hands observed by nurse Bergeron. Continue current meds. Medications: Current Medications Albuterol (Ventolin Hfa Inhaler*) 2 puff INH Q4H PRN PRN Reason: SOB/WHEEZING Ciprofloxacin (Cipro Tab*) 500 mg PO Q12H [facility] Stop: 12/03/16 05:01 Last Admin: 12/01/16 04:26 Dose: 500 mg Diphenhydramine HCl (Benadryl Po*) 50 mg PO BEDTIME PRN PRN Reason: INSOMNIA Divalproex Sodium (Depakote Er Tab(*)) 1,000 mg PO BEDTIME [facility] Last Admin: 11/30/16 21:02 Dose: 1,000 mg Furosemide (Lasix Tab*) 20 mg PO DAILY PRN PRN Reason: bilat lower extrem edema Last Admin: 12/01/16 09:08 Dose: 20 mg Guaifenesin (Mucinex*) 600 mg PO BID [facility] Last Admin: 12/01/16 09:07 Dose: 600 mg Nicotine (Nicotine Inhaler*) 10 mg INH Q2H PRN PRN Reason: CRAVING Risperidone (Risperdal*) 3 mg PO BEDTIME [facility] Last Admin: 11/30/16 21:01 Dose: 3 mg - Discharge Plan Discharge Plan: Outpatient Follow Up
--- NOTE | 2016-12-01 17:08 | CONS ---
CONSULTATION REPORT: DATE OF CONSULT: 12/01/16 REQUESTING PHYSICIAN: Dr. Colon, Psychiatry. PRIMARY CARE PROVIDER: Dr. Joseph. REASON FOR CONSULT: Leg edema. HISTORY OF PRESENT ILLNESS: Una Ward is a 56-year-old female who has a history of multiple psychiatric admissions in the past and she was at this time admitted on 11/29/16 for paranoia and anxiety. The patient stated that she has had history of leg edema for the past month and she was prescribed furosemide 20 mg on a daily basis as needed. She apparently has been using it at home on a daily basis but says it was prescribed as needed during the hospital stay, the patient had not gotten it for the past 3 days. Today was the first dose she received furosemide. The patient stated that she was placed on furosemide prior by her primary care physician for leg edema. She states that the leg edema gets better when she has her legs elevated and gets better in the morning. It is worse as the day progresses and worse when she keeps them not elevated. She denies any dyspnea or chest pain. She also is met by myself in the mental health unit holding on to approximately a 1000 mL container with juice in it, although herself, she stated that she has not been drinking "that much." PAST MEDICAL HISTORY: 1. History of leg edema for approximately a month, on Lasix p.r.n. 2. History of bipolar type 1. 3. History of suicidal behavior. 4. History of paranoid behavior. 5. History of left knee meniscus repair. 6. History of obstructive sleep apnea, on CPAP. MEDICATIONS: As outpatient included: 1. Albuterol inhaler 2 puffs on a p.r.n. basis. 2. Biotin 1 mg daily. 3. Depakote ER 1000 mg at bedtime. 4. Furosemide 20 mg daily p.r.n. leg edema. 5. Glucosamine 1 tablet daily. 6. Mucinex 600 mg b.i.d. p.r.n. 7. Risperdal 1 mg at bedtime. During her hospital stay apart from the above mentioned medications, she is on: 1. Ciprofloxacin 500 mg every 12 hours that was started on the 14 of this month. 2. Benadryl 50 mg at bedtime p.r.n. 3. Nicotine inhaler. ALLERGIES: BEE VENOM and KIWI. FAMILY HISTORY: Positive for mother with pancreatic cancer and father with history of heart disease. SOCIAL HISTORY: The patient denies any tobacco, alcohol, or drug use. 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 She lists her daughter Elyssa as her surrogate. REVIEW OF SYSTEMS: Please see history of present illness. In addition to the above mentioned, the patient denies any chest pain or shortness of breath. She uses a CPAP at night with good results. All the remaining 14 systems were reviewed with the patient and were otherwise negative. PHYSICAL EXAM: Vital Signs: Blood pressure of 121/71, heart rate of 82 and regular, respiratory rate of 16, oxygen saturation 98% on room air, and temperature 98.1. General Appearance: This is a very pleasant 56-year-old female with a BMI of 40.7. The patient is in no acute distress. Alert, awake, and oriented x3. HEENT: Head atraumatic and normocephalic. Eyes pupils equal, round, reactive to light and accommodation. Oropharynx clear. Mucosa moist. Neck: Supple. No JVD, no bruits bilaterally. Cardiovascular: Regular rate and rhythm. No murmur. Respiratory: Clear to auscultation bilaterally. Abdomen: Soft and nontender. Bowel sounds present in all 4 quadrants. Extremities: There is +2 pitting pedal edema. Pulses are +2 bilaterally. There is no clubbing or cyanosis. On evaluation of the skin, no ecchymotic areas or rashes noted. Neuro Evaluation: Speech clear. Cranial nerves II through XII are grossly intact. Motor strength is 5/5 bilaterally. DIAGNOSTIC STUDIES/LAB DATA: Obtained on 11/29/16 show a white blood cell count of 6.7, hemoglobin of 12.4, hematocrit of 39, and platelets of 249. Sodium 170, was 139. Potassium 3.9, chloride 104, carbon dioxide 29, BUN 17, and creatinine 0.7. Liver function tests were unremarkable and TSH of 1.55. The patient's urine cultures showed 75,000 to 100,000 colonies of E. Coli that was obtained on 11/27/16. ASSESSMENT AND PLAN: A 56-year-old obese female with a history of leg edema that had been ongoing for the past month who is taking furosemide on a p.r.n. basis and had not been taking it for the past 3 days. At this point, I recommend: 1. Placing the patient on furosemide on a daily basis at the same dose. 2. Use JYA stockings for compression. 3. Make sure that the patient does not drink an excessive amount of liquids. The patient is going to be placed on 2000 mL of fluid restriction per day. 4. The patient most likely has venous stasis edema. The patient was instructed to keep her bilateral lower extremities elevated as frequently as she can. 5. In regards to the patient's obstructive sleep apnea, the patient is awaiting her CPAP machine to be delivered by a family member. She is instructed to use it on a nightly basis. 6. In regards to her bipolar disorder and paranoia, that will be deferred to Psychiatry. Please also note that I placed the patient on daily weight checks. It appears that from 2012 to 2016, the patient gained approximately 70 pounds. She used to be 190 pounds in 2013. Thank you for allowing me to see your patient in consultation. We will see the patient on a p.r.n. basis. TIME SPENT: Approximately 55 minutes was spent on the patient's consultation. CC: Dr. Colon; Dr. Joseph* [id number]/[facility] #: [id number] MTDD
[2016-12-01] MEDS: Divalproex ER TAB(*) 500 MG PO SCH (20:49)
[2016-12-01] MEDS: risperiDONE TAB* 3 MG PO SCH (20:50)
[2016-12-02] MEDS: diPHENhydraMINE PO* 50 MG PO PRN (02:45)
[2016-12-02] MEDS: Ciprofloxacin TAB* 500 MG PO SCH ×2 (03:40→16:38)
[2016-12-02] MEDS: Furosemide TAB* 20 MG PO SCH (09:55)
[2016-12-02] MEDS: guaiFENesin ER TAB 600 MG PO SCH ×2 (09:56→20:49)
--- NOTE | 2016-12-02 16:47 | PN ---
Subjective - Subjective Service Type: 93850 Hosp care 15 min low complexity Subjective: Una reports "doing better." She has latencies and speaks in sikhism terms. She makes no paranoid statement and denies being under any threat. Is pleased with new Risperdal dose, does not want to change it. Appreciated hospitalist involvement, feels better. Would like to go home soon. Objective - Appearance Appearance: Obese Hygiene: Normal Grooming: Fairly Well Kept - Behavior Psychomotor Activities: Abnormal-Decreased - Attitude and Relatedness Attitude and Relatedness: Psychotically Related Eye Contact: Good - Speech Quality: Unpressured Latencies: Long Quantity: Terse - Mood Patient's Decription of Mood: "Great" - Affect Observed Affect: Non-labile Affect Consistent with: Euthymia - Thought Process Patient's Thought Process: Impoverished - blocked Thought Content: No Passive Wish, No Suicidal Planning, No Homicidal Ideation, No Paranoid Ideation - Sensorium Experiencing Hallucinations: No, Sensorium is Clear - Level of Consciousness Level of Consciousness: Alert - Impulse Control Impulse Control: Intact - Insight and Judgement Insight and Judgement: Poor Assessment - Assessment Merits Inpatient Hospitalization: For Ongoing Evaluation, Consolidate Improvements, For Discharge Planning Inpatient DSM-IV Dx: Schizoaffective Disorder, Bipolar Type Clinical Impression: A 56-year-old female with a history of previous suicidal behavior, multiple psychiatric hospitalizations, psychosis, bipolar spectrum condition, she presents in distress with paranoid ideation after a subacute period of difficulties with multiple ER visits and one suspicious overdose. Stabilizing here. Is safe on checks, fee of suicidal ideation or overt paranoia. She continues impaired and symptomatic with psychosis (hyper-sikhism, responses to internal stimuli, impaired relatedness, thought disorder). Medication management involves increasing Risperdal for effect. Hospitalist consultation was obtained for evaluation of lower extremity edema. Plan - Plan Treatment Plan: Name: UNA BONNER Birthdate: 1960 [id number] Continued Medication Management: Continue Outpt Medication Medications: Current Medications Albuterol (Ventolin Hfa Inhaler*) 2 puff INH Q4H PRN PRN Reason: SOB/WHEEZING Ciprofloxacin (Cipro Tab*) 500 mg PO Q12H STEPHANIE Stop: 12/03/16 05:01 Last Admin: 12/02/16 16:38 Dose: 500 mg Diphenhydramine HCl (Benadryl Po*) 50 mg PO BEDTIME PRN PRN Reason: INSOMNIA Last Admin: 12/02/16 02:45 Dose: 50 mg Divalproex Sodium (Depakote Er Tab(*)) 1,000 mg PO BEDTIME STEPHANIE Last Admin: 12/01/16 20:49 Dose: 1,000 mg Furosemide (Lasix Tab*) 20 mg PO DAILY STEPHANIE Last Admin: 12/02/16 09:55 Dose: 20 mg Guaifenesin (Mucinex*) 600 mg PO BID [facility] Last Admin: 12/02/16 09:56 Dose: 600 mg Nicotine (Nicotine Inhaler*) 10 mg INH Q2H PRN PRN Reason: CRAVING Risperidone (Risperdal*) 3 mg PO BEDTIME [facility] Last Admin: 12/01/16 20:50 Dose: 3 mg - Discharge Plan Discharge Plan: Outpatient Follow Up
[2016-12-02] MEDS: Divalproex ER TAB(*) 500 MG PO SCH (20:49)
[2016-12-02] MEDS: risperiDONE TAB* 3 MG PO SCH (20:49)
[2016-12-03] MEDS: Ciprofloxacin TAB* 500 MG PO SCH (05:11)
[2016-12-03] MEDS: Furosemide TAB* 20 MG PO SCH (09:40)
[2016-12-03] MEDS: guaiFENesin ER TAB 600 MG PO SCH ×2 (09:40→20:52)
--- NOTE | 2016-12-03 15:32 | PN ---
Subjective - Subjective Service Type: 28067 Hosp care 15 min low complexity Subjective: Una reports "doing wonderful... god bless you." She denies side effect and agreed with higher dose Risperdal. She denied perceptual disturbance or paranoid concerns. Objective - Appearance Appearance: Obese Hygiene: Normal Grooming: Fairly Well Kept - Behavior Psychomotor Activities: Normal - Attitude and Relatedness Attitude and Relatedness: Psychotically Related Eye Contact: Good - Speech Quality: Unpressured Latencies: Normal Quantity: Terse - Mood Patient's Decription of Mood: "Great" - Affect Observed Affect: Expansive Affect Consistent with: Euphoria - Thought Process Patient's Thought Process: Impoverished Thought Content: No Passive Wish, No Suicidal Planning, No Homicidal Ideation, No Paranoid Ideation - Sensorium Experiencing Hallucinations: No, Sensorium is Clear - Level of Consciousness Level of Consciousness: Alert - Impulse Control Impulse Control: Intact - Insight and Judgement Insight and Judgement: Poor Assessment - Assessment Merits Inpatient Hospitalization: For Stabilization, To Initiate Treatment, For Ongoing Evaluation, Consolidate Improvements, For Discharge Planning Inpatient DSM-IV Dx: Schizoaffective Disorder, Bipolar Type Clinical Impression: A 56-year-old female with a history of previous suicidal behavior, multiple psychiatric hospitalizations, psychosis, bipolar spectrum condition, she presents in distress with paranoid ideation after a subacute period of difficulties with multiple ER visits and one suspicious overdose. Stabilizing here. Is safe on checks, fee of suicidal ideation or overt paranoia. She continues impaired and symptomatic with psychosis (hyper-sikh, responses to internal stimuli, impaired relatedness, thought disorder). Medication management involves increasing Risperdal for effect (from 1 to 4 mg/ day). Hospitalist consultation was obtained for evaluation of lower extremity edema. Plan - Plan Treatment Plan: Name: UNA OBNNER Birthdate: 1960 [id number] Continued Medication Management: Continue Outpt Medication Medications: Current Medications Albuterol (Ventolin Hfa Inhaler*) 2 puff INH Q4H PRN PRN Reason: SOB/WHEEZING Diphenhydramine HCl (Benadryl Po*) 50 mg PO BEDTIME PRN PRN Reason: INSOMNIA Last Admin: 12/02/16 02:45 Dose: 50 mg Divalproex Sodium (Depakote Er Tab(*)) 1,000 mg PO BEDTIME STEPHANIE Last Admin: 12/02/16 20:49 Dose: 1,000 mg Furosemide (Lasix Tab*) 20 mg PO DAILY STEPHANIE Last Admin: 12/03/16 09:40 Dose: 20 mg Guaifenesin (Mucinex*) 600 mg PO BID STEPHANIE Last Admin: 12/03/16 09:40 Dose: 600 mg Nicotine (Nicotine Inhaler*) 10 mg INH Q2H PRN PRN Reason: CRAVING Risperidone (Risperdal*) 3 mg PO BEDTIME [facility] Last Admin: 12/02/16 20:49 Dose: 3 mg - Discharge Plan Discharge Plan: Outpatient Follow Up
[2016-12-03] MEDS: Divalproex ER TAB(*) 500 MG PO SCH (20:50)
[2016-12-03] MEDS: risperiDONE TAB* 2 MG PO SCH (20:50)
--- NOTE | 2016-12-04 08:37 | PN ---
Subjective - Subjective Service Type: 02987 Hosp care 15 min low complexity Subjective: Today Una reports good mood and denies any psychosis or dangerous intent or plan. She reports keeping her feet elevated and wearing stockings to address her leg edema. She has no other physical complaints. Objective - Appearance Appearance: Obese Dysmorphic Features: No Hygiene: Normal Grooming: Fairly Well Kept - Behavior Psychomotor Activities: Normal Exhibits Abnormal Movement: No - Attitude and Relatedness Attitude and Relatedness: Cooperative Eye Contact: Good - staring - Speech Quality: Unpressured Latencies: Normal Quantity: Terse - Mood Patient's Decription of Mood: "Good" - Thought Process Patient's Thought Process: Coherent, Goal Directed, Impoverished Thought Content: No Passive Wish, No Suicidal Planning, No Homicidal Ideation, No Paranoid Ideation - Sensorium Experiencing Hallucinations: No, Sensorium is Clear Type of Hallucinations: Visual: No, Auditory: No, Command: No - Level of Consciousness Level of Consciousness: Alert Orientation: Yes Intact, Yes Orientated to Time, Yes Orientated to Place, Yes Orientated to Person - Impulse Control Impulse Control: Tenuous - Insight and Judgement Insight and Judgement: Impaired - Group Participation Particating in Group Activities: Yes - Medication Management Medication Management Adherence: Yes Assessment - Assessment Merits Inpatient Hospitalization: For Stabilization, Consolidate Improvements, For Discharge Planning, Pending Safe DC Plan Inpatient DSM-IV Dx: Schizoaffective Disorder, Bipolar Type Clinical Impression: Una has returned to the unit for continued care due to expressed distress at paranoid ideation at the culmination of multiple ED presentations with a suspicious overdose occurring during this run of contacts with the hospital between psychiatric admissions. She has no complaints of side effects since increased dose of Risperdal. She has continued to show signs of psychosis with self-dialoguing. 3.18.17 Today Una reports nearing readiness for discharge per her self- assessment. She asks that we make contact with her lead medical technologist. She says she still needs to speak with her lead medical technologist and children herself to prepare for discharge. She continues to have a vacant stare and in general appears somewhat impoverished in her thought process. She reports no difficulties with an increased dose of Risperdal. Hospitalist consult re LE edema appreciated: Ms lino on lasix, recommended JAY stockings, elevation, fluid restriction, daily weights. Plan - Plan Treatment Plan: Name: UNA LINO Birthdate: 1960 [id number] Monitor MS and safety. Encourage groups and milieu. Continue current meds. Gather collateral on Tuesday regarding family and lead medical technologist's report of patient mental status compared to usual baseline. Medications: Current Medications Albuterol (Ventolin Hfa Inhaler*) 2 puff INH Q4H PRN PRN Reason: SOB/WHEEZING Diphenhydramine HCl (Benadryl Po*) 50 mg PO BEDTIME PRN PRN Reason: INSOMNIA Last Admin: 12/02/16 02:45 Dose: 50 mg Divalproex Sodium (Depakote Er Tab(*)) 1,000 mg PO BEDTIME STEPHANIE Last Admin: 12/03/16 20:50 Dose: 1,000 mg Furosemide (Lasix Tab*) 20 mg PO DAILY STEPHANIE Last Admin: 12/03/16 09:40 Dose: 20 mg Guaifenesin (Mucinex*) 600 mg PO BID STEPHANIE Last Admin: 12/03/16 20:52 Dose: 600 mg Nicotine (Nicotine Inhaler*) 10 mg INH Q2H PRN PRN Reason: CRAVING Risperidone (Risperdal*) 4 mg PO BEDTIME STEPHANIE Last Admin: 12/03/16 20:50 Dose: 4 mg - Discharge Plan Discharge Plan: Outpatient Follow Up
[2016-12-04] MEDS: guaiFENesin ER TAB 600 MG PO SCH ×2 (09:31→21:00)
[2016-12-04] MEDS: Furosemide TAB* 20 MG PO SCH (09:31)
[2016-12-04] MEDS: diPHENhydraMINE PO* 50 MG PO PRN (19:21)
[2016-12-04] MEDS: Divalproex ER TAB(*) 500 MG PO SCH (20:59)
[2016-12-04] MEDS: risperiDONE TAB* 2 MG PO SCH (20:59)
[2016-12-05] MEDS ORDERED: Acetaminophen TAB* 325 MG PO ONE (04:30)
[2016-12-05] MEDS ORDERED: Acetaminophen TAB* 325 MG ONE (04:51)
[2016-12-05] MEDS: Furosemide TAB* 20 MG PO SCH (09:13)
[2016-12-05] MEDS: guaiFENesin ER TAB 600 MG PO SCH ×2 (09:14→20:47)
[2016-12-05] MEDS: risperiDONE TAB* 2 MG PO SCH (20:47)
[2016-12-05] MEDS: Divalproex ER TAB(*) 500 MG PO SCH (20:47)
[2016-12-05] MEDS: diPHENhydraMINE PO* 50 MG PO PRN (22:28)
[2016-12-06 08:57] LABS: Hematocrit 38 % (35-47); Hemoglobin 12.3 g/dl (12.0-16.0); Mean Corpuscular HGB Conc 33 g/dl (31-36); Mean Corpuscular Hemoglobin 27 pg (27-31); Mean Corpuscular Volume 83 fL (80-97); Mean Platelet Volume 7 um3 (7.4-10.4); Red Blood Count 4.54 10^6/ul (4.0-5.4); Red Cell Distribution Width 14 % (10.5-15); White Blood Count 6.7 10^3/ul (3.5-10.8)
[2016-12-06] MEDS: guaiFENesin ER TAB 600 MG PO SCH ×2 (09:45→21:03)
[2016-12-06] MEDS: Furosemide TAB* 20 MG PO SCH (09:45)
--- NOTE | 2016-12-06 13:29 | PN ---
Subjective - Subjective Service Type: 75021 Hosp care 15 min low complexity Subjective: Una gives report that all is well and she feels ready for discharge. She nevertheless says she would consider transfer to assisted [facility] at a [facility] due to staff observation of continued psychosis, with fixed stare and hyperreligiosity. She has no physical complaints, and says 'god bless you' to me as I end our interview. Objective - Appearance Appearance: Obese Dysmorphic Features: No Hygiene: Normal Grooming: Fairly Well Kept - Behavior Psychomotor Activities: Normal Exhibits Abnormal Movement: No - Attitude and Relatedness Attitude and Relatedness: Cooperative Eye Contact: Good - too intense - Speech Quality: Unpressured Latencies: Normal Quantity: Terse - Mood Patient's Decription of Mood: "Good" - Affect Observed Affect: Constricted Affect Consistent with: Euthymia - Thought Process Patient's Thought Process: Coherent, Goal Directed Thought Content: No Passive Wish, No Suicidal Planning, No Homicidal Ideation, No Paranoid Ideation - Sensorium Experiencing Hallucinations: No, Sensorium is Clear Type of Hallucinations: Visual: No, Auditory: No, Command: No - Level of Consciousness Level of Consciousness: Alert Orientation: Yes Intact, Yes Orientated to Time, Yes Orientated to Place, Yes Orientated to Person - Impulse Control Impulse Control: Intact - Insight and Judgement Insight and Judgement: Impaired - Group Participation Particating in Group Activities: Yes - Medication Management Medication Management Adherence: Yes Assessment - Assessment Merits Inpatient Hospitalization: For Immediate Safety, For Stabilization, For Ongoing Evaluation, For Discharge Planning, Pending Safe DC Plan Inpatient DSM-IV Dx: Schizoaffective Disorder, Bipolar Type Clinical Impression: Una has returned to the unit for continued care due to expressed distress at paranoid ideation at the culmination of multiple ED presentations with a suspicious overdose occurring during this run of contacts with the hospital between psychiatric admissions. She has no complaints of side effects since increased dose of Risperdal. She has continued to show signs of psychosis with self-dialoguing. 3.18.17 Today Una reports nearing readiness for discharge per her self- assessment. She asks that we make contact with her studio camera operator. She says she still needs to speak with her studio camera operator and children herself to prepare for discharge. She continues to have a vacant stare and in general appears somewhat impoverished in her thought process. She reports no difficulties with an increased dose of Risperdal. Hospitalist consult re LE edema appreciated: Ms lino on lasix, recommended JAY stockings, elevation, fluid restriction, daily weights. 12.06.16 Continuing care of patient in coverage for Dr. Aragon, who is away this week. She continues to have an intense stare, with hyperreligious thoughts. Treatment team today raised consideration of termite technician care. Plan - Plan Treatment Plan: Name: UNA LINO Birthdate: 1960 [id number] Monitor MS and safety. Encourage groups and milieu. Continue current meds but with increased risperidone dose. Gather collateral egarding family and studio camera operator' s report of patient mental status compared to usual baseline. Medications: Current Medications Albuterol (Ventolin Hfa Inhaler*) 2 puff INH Q4H PRN PRN Reason: SOB/WHEEZING Diphenhydramine HCl (Benadryl Po*) 50 mg PO BEDTIME PRN PRN Reason: INSOMNIA Last Admin: 12/05/16 22:28 Dose: 50 mg Divalproex Sodium (Depakote Er Tab(*)) 1,000 mg PO BEDTIME STEPHANIE Last Admin: 12/05/16 20:47 Dose: 1,000 mg Furosemide (Lasix Tab*) 20 mg PO DAILY STEPHANIE Last Admin: 12/06/16 09:45 Dose: 20 mg Guaifenesin (Mucinex*) 600 mg PO BID [facility]PH[facility]IE Last Admin: 12/06/16 09:45 Dose: 600 mg Nicotine (Nicotine Inhaler*) 10 mg INH Q2H PRN PRN Reason: CRAVING Risperidone (Risperdal*) 4 mg PO BEDTIME STEPHANIE Last Admin: 12/05/16 20:47 Dose: 4 mg - Discharge Plan Discharge Plan: Consider Longer Term Tx
[2016-12-06 14:28] LABS: BUN/Creatinine Ratio 21.1 (8-20); Calcium 9.3 mg/dL (8.6-10.3); EGFR African American 110.3 (>60); EGFR Non-African American 85.8 (>60); Globulin 3.2 g/dL (2-4); Potassium 4.4 mmol/L (3.5-5.0); Total Bilirubin 0.3 mg/dL (0.2-1.0); Total Protein 7.2 g/dL (6.4-8.9)
[2016-12-06] MEDS: Albuterol HFA INHALER* 8 gm MDI INH PRN (14:38)
--- NOTE | 2016-12-06 17:29 | PN ---
Subjective Date of Service: 12/06/16 Interval History: Called by RN from [facility] for pt c/o CP, but later on pt clarified that it was "emotional heartache". Pt denied CP, SOB. Wears Teds, ankles still swollen Objective Active Medications: Albuterol (Ventolin Hfa Inhaler*) 2 puff INH Q4H PRN PRN Reason: SOB/WHEEZING Last Admin: 12/06/16 14:38 Dose: 2 puff Diphenhydramine HCl (Benadryl Po*) 50 mg PO BEDTIME PRN PRN Reason: INSOMNIA Last Admin: 12/05/16 22:28 Dose: 50 mg Divalproex Sodium (Depakote Er Tab(*)) 1,000 mg PO BEDTIME STEPHANIE Last Admin: 12/05/16 20:47 Dose: 1,000 mg Furosemide (Lasix Tab*) 20 mg PO DAILY STEPHANIE Last Admin: 12/06/16 09:45 Dose: 20 mg Guaifenesin (Mucinex*) 600 mg PO BID STEPHANIE Last Admin: 12/06/16 09:45 Dose: 600 mg Nicotine (Nicotine Inhaler*) 10 mg INH Q2H PRN PRN Reason: CRAVING Risperidone (Risperdal*) 6 mg PO BEDTIME [facility] Vital Signs 12/05/16 12/06/16 12/06/16 22:28 07:25 07:36 Temperature 98.0 F Pulse Rate 95 Respiratory 16 20 Rate Blood Pressure 128/64 (mmHg) O2 Sat by Pulse 96 Oximetry 12/06/16 11:18 Temperature Pulse Rate Respiratory 16 Rate Blood Pressure (mmHg) O2 Sat by Pulse Oximetry Oxygen Devices in Use Now: None Appearance: 56 yo F in nAd, aAOx3 Eyes: No Scleral Icterus, PERRLA Ears/Nose/Mouth/Throat: NL Teeth, Lips, Gums, Mucous Membranes Moist Neck: NL Appearance and Movements; NL JVP, Trachea Midline Respiratory: Symmetrical Chest Expansion and Respiratory Effort, Clear to Auscultation Cardiovascular: NL Sounds; No Murmurs; No JVD, RRR Abdominal: NL Sounds; No Tenderness; No Distention Lymphatic: No Cervical Adenopathy Extremities: No Clubbing, Cyanosis, - - =1 pitting edema b/l Skin: No Rash or Ulcers, No Nodules or Sclerosis Neurological: Alert and Oriented x 3, NL Muscle Strength and Tone Result Diagrams: 12/06/16 08:31 12/06/16 14:05 Microbiology and Other Data: Microbiology 11/30/16 10:29 Nasal Screen MRSA (PCR)(ELSI) - Final Nasal Mrsa Negative Assess/Plan/Problems-Billing Assessment: 56 yo F in MHU see in med consult for leg edema initially - Patient Problems (1) Leg edema Comment: leg edema is improved, but still present at +1 will increase Lasix to 40 mg daily recommend BMP in 3 days (2) Chest pain Comment: it was "a heartache" Troponin neg, EKG unremarkable Status and Disposition: Thank you, our service will f/u in 4 days
[2016-12-06] MEDS: Divalproex ER TAB(*) 500 MG PO SCH (21:02)
[2016-12-06] MEDS: risperiDONE TAB* 3 MG PO SCH (21:03)
[2016-12-07] MEDS: Furosemide TAB* 20 MG PO SCH (09:16)
[2016-12-07] MEDS: guaiFENesin ER TAB 600 MG PO SCH ×2 (09:16→21:21)
[2016-12-07] MEDS: Albuterol HFA INHALER* 8 gm MDI INH PRN (09:18)
[2016-12-07] MEDS: Divalproex ER TAB(*) 500 MG PO SCH (21:21)
[2016-12-07] MEDS: risperiDONE TAB* 3 MG PO SCH (21:21)
[2016-12-08 09:04] LABS: BUN/Creatinine Ratio 16.9 (8-20); Calcium 9.2 mg/dL (8.6-10.3); EGFR African American 122.2 (>60); Potassium 4.2 mmol/L (3.5-5.0)
[2016-12-08] MEDS: guaiFENesin ER TAB 600 MG PO SCH ×2 (09:16→21:03)
[2016-12-08] MEDS: Furosemide TAB* 20 MG PO SCH (09:16)
--- NOTE | 2016-12-08 11:50 | PN ---
Subjective - Subjective Service Type: 83941 Hosp care 15 min low complexity Subjective: Una continues to report no subjective appreciation of odd behavior, intense gaze and hyperreligiosity. She states that she has no hallucinations, paranoia or dangerous intent or plan. Social work staff has spoken with her daughter Petr, who is allied with us in seeking continuous churn buttermaker care for further stabilization given current run of hospitalizations, dangerous behaviors and overall extended decompensation. Objective - Appearance Appearance: Obese Dysmorphic Features: No Hygiene: Normal Grooming: Fairly Well Kept - Behavior Psychomotor Activities: Normal Exhibits Abnormal Movement: No - Attitude and Relatedness Attitude and Relatedness: Psychotically Related Eye Contact: Good - intense - Speech Quality: Unpressured Latencies: Normal Quantity: Terse - Mood Patient's Decription of Mood: "Good" - Affect Observed Affect: Constricted Affect Consistent with: Euthymia - Thought Process Patient's Thought Process: Coherent, Goal Directed, Impoverished - or at least overfocused Thought Content: No Passive Wish, No Suicidal Planning, No Homicidal Ideation, No Paranoid Ideation - Sensorium Experiencing Hallucinations: No, Sensorium is Clear Type of Hallucinations: Visual: No, Auditory: No, Command: No - Level of Consciousness Level of Consciousness: Alert Orientation: Yes Intact, Yes Orientated to Time, Yes Orientated to Place, Yes Orientated to Person - Impulse Control Impulse Control: Intact - Insight and Judgement Insight and Judgement: Impaired - Group Participation Particating in Group Activities: Yes - Medication Management Medication Management Adherence: Yes Assessment - Assessment Merits Inpatient Hospitalization: For Immediate Safety, For Stabilization, For Discharge Planning, Pending Safe DC Plan Inpatient DSM-IV Dx: Schizoaffective Disorder, Bipolar Type Clinical Impression: Una has returned to the unit for continued care due to expressed distress at paranoid ideation at the culmination of multiple ED presentations with a suspicious overdose occurring during this run of contacts with the hospital between psychiatric admissions. She has no complaints of side effects since increased dose of Risperdal. She has continued to show signs of psychosis with self-dialoguing. 3.18.17 Today Una reports nearing readiness for discharge per her self- assessment. She asks that we make contact with her podiatry teacher. She says she still needs to speak with her podiatry teacher and children herself to prepare for discharge. She continues to have a vacant stare and in general appears somewhat impoverished in her thought process. She reports no difficulties with an increased dose of Risperdal. Hospitalist consult re LE edema appreciated: Ms lino on lasix, recommended JAY stockings, elevation, fluid restriction, daily weights. 12.06.16 Continuing care of patient in coverage for Dr. Aragon, who is away this week. She continues to have an intense stare, with hyperreligious thoughts. Treatment team today raised consideration of continuous churn buttermaker care. 12.08.16 Complaint of chest pain ruled out as of cardiac origin, with Una self- assessing that complaint had been due to 'heart ache'. She is voicing reservations about transfer to [facility]. Multiple presentations to hospital in dangerous circumstances with extended partial decompensation into psychotic illness argues for extended treatment to establish firmer foundation of recovery. Plan - Plan Treatment Plan: Name: UNA LINO Birthdate: 1960 [id number] Monitor MS and safety. Encourage groups and milieu. Continue current meds. Check valproic acid level tomorrow. Social work staff gathering collateral regarding family and podiatry teacher's report of patient mental status compared to usual baseline. Medications: Current Medications Albuterol (Ventolin Hfa Inhaler*) 2 puff INH Q4H PRN PRN Reason: SOB/WHEEZING Last Admin: 12/07/16 09:18 Dose: 2 puff Diphenhydramine HCl (Benadryl Po*) 50 mg PO BEDTIME PRN PRN Reason: INSOMNIA Last Admin: 12/05/16 22:28 Dose: 50 mg Divalproex Sodium (Depakote Er Tab(*)) 1,000 mg PO BEDTIME STEPHANIE Last Admin: 12/07/16 21:21 Dose: 1,000 mg Furosemide (Lasix Tab*) 20 mg PO DAILY STEPHANIE Last Admin: 12/08/16 09:16 Dose: 20 mg Guaifenesin (Mucinex*) 600 mg PO BID STEPHANIE Last Admin: 12/08/16 09:16 Dose: 600 mg Nicotine (Nicotine Inhaler*) 10 mg INH Q2H PRN PRN Reason: CRAVING Risperidone (Risperdal*) 6 mg PO BEDTIME STEPHANIE Last Admin: 12/07/16 21:21 Dose: 6 mg - Discharge Plan Discharge Plan: Consider Longer Term Tx
--- NOTE | 2016-12-08 13:15 | PN ---
MHU: Group Therapy Note - Service Type Service Type: 12828 Group Psychotherapy - Cognitive Behavioral Group Therapy ( CBT):Patient presented in CBT programming as disorganized and disruptive in discussion and needed repeated redirection to attend to presented materials.
[2016-12-08] MEDS: risperiDONE TAB* 3 MG PO SCH (21:03)
[2016-12-08] MEDS: Divalproex ER TAB(*) 500 MG PO SCH (21:03)
[2016-12-09] MEDS ORDERED: Acetaminophen TAB* 325 MG ONE (02:34)
[2016-12-09] MEDS: Furosemide TAB* 20 MG PO SCH (09:48)
[2016-12-09] MEDS: guaiFENesin ER TAB 600 MG PO SCH ×2 (09:48→20:57)
[2016-12-09] MEDS: Acetaminophen TAB* 325 MG PO PRN ×2 (09:50→18:47)
[2016-12-09] MEDS: Albuterol HFA INHALER* 8 gm MDI INH PRN ×2 (09:52→18:48)
[2016-12-09 11:26] VITALS: BP 102/58
--- NOTE | 2016-12-09 15:45 | PN ---
Subjective Date of Service: 12/09/16 Interval History: Patient seen this afternoon. Pleasant. Says she feels that edema has been improving on current Lasix dose. Still wearing JAY hose, elevating legs when she is not ambulating. Family History: Unchanged from Admission Social History: Unchanged from Admission Past Medical History: Unchanged from Admission Objective Active Medications: Acetaminophen (Tylenol Tab*) 650 mg PO Q4H PRN PRN Reason: PAIN Last Admin: 12/09/16 09:50 Dose: 650 mg Albuterol (Ventolin Hfa Inhaler*) 2 puff INH Q4H PRN PRN Reason: SOB/WHEEZING Last Admin: 12/09/16 09:52 Dose: 2 puff Diphenhydramine HCl (Benadryl Po*) 50 mg PO BEDTIME PRN PRN Reason: INSOMNIA Last Admin: 12/05/16 22:28 Dose: 50 mg Divalproex Sodium (Depakote Er Tab(*)) 1,000 mg PO BEDTIME STEPHANIE Last Admin: 12/08/16 21:03 Dose: 1,000 mg Furosemide (Lasix Tab*) 20 mg PO DAILY STEPHANIE Last Admin: 12/09/16 09:48 Dose: 20 mg Guaifenesin (Mucinex*) 600 mg PO BID STEPHANIE Last Admin: 12/09/16 09:48 Dose: 600 mg Nicotine (Nicotine Inhaler*) 10 mg INH Q2H PRN PRN Reason: CRAVING Risperidone (Risperdal*) 6 mg PO BEDTIME STEPHANIE Last Admin: 12/08/16 21:03 Dose: 6 mg Vital Signs 12/09/16 12/09/16 07:18 11:05 Temperature 97.7 F Pulse Rate 85 Respiratory 16 16 Rate Blood Pressure 102/58 (mmHg) O2 Sat by Pulse 100 Oximetry Oxygen Devices in Use Now: None Appearance: Middle-aged, F, sitting in bed in NAD Eyes: No Scleral Icterus Ears/Nose/Mouth/Throat: Mucous Membranes Moist Neck: NL Appearance and Movements; NL JVP Respiratory: Symmetrical Chest Expansion and Respiratory Effort, Clear to Auscultation Cardiovascular: NL Sounds; No Murmurs; No JVD, RRR Lymphatic: No Cervical Adenopathy Extremities: - - B/L LE edema, JAY hose in place Neurological: Alert and Oriented x 3 Result Diagrams: 12/06/16 08:31 12/08/16 08:24 Microbiology and Other Data: Microbiology 11/30/16 10:29 Nasal Screen MRSA (PCR)(ELSI) - Final Nasal Mrsa Negative Assess/Plan/Problems-Billing Assessment: 56 yo F in MHU see in med consult for leg edema - Patient Problems (1) Leg edema Current Visit: Yes Comment: leg edema is improved, but still present Continue Lasix at current dose. BMP stable. Status and Disposition: Thank you. Will sign off at this time. Please call for further questions.
[2016-12-09] MEDS: risperiDONE TAB* 3 MG PO SCH (20:57)
[2016-12-09] MEDS: Divalproex ER TAB(*) 500 MG PO SCH (20:57)
[2016-12-10] MEDS: Albuterol HFA INHALER* 8 gm MDI INH PRN (04:10)
[2016-12-10] MEDS: Acetaminophen TAB* 325 MG PO PRN (04:11)
[2016-12-10] MEDS: guaiFENesin ER TAB 600 MG PO SCH (09:39)
[2016-12-10] MEDS: Furosemide TAB* 20 MG PO SCH (09:39)
--- NOTE | 2016-12-10 10:41 | DS ---
Subjective - Subjective Service Types: 89913 Hosp IN Day Mgmt simple under 30 min Discharge Date: 12/10/16 Subjective: Una reports feeling ready for the transfer to [facility]. She raises no concerns at the time of transfer other than being sure that we communicate with her daughter and her vice president quality improvement about the transfer. Objective - Appearance Appearance: Obese Dysmorphic Features: No Hygiene: Normal Grooming: Fairly Well Kept - Behavior Psychomotor Activities: Normal Exhibits Abnormal Movement: No - Attitude and Relatedness Attitude and Relatedness: Cooperative Eye Contact: Good - and seems somewhat less intense with the staring today - Speech Quality: Unpressured Latencies: Normal Quantity: Appropriate - Mood Patient's Decription of Mood: "Okay" - Affect Observed Affect: Fair Affect Consistent with: Euthymia - Thought Process Patient's Thought Process: Coherent, Goal Directed, Impoverished Thought Content: No Passive Wish, No Suicidal Planning, No Homicidal Ideation, No Paranoid Ideation - Sensorium Experiencing Hallucinations: No, Sensorium is Clear Type of Hallucinations: Visual: No, Auditory: No, Command: No - Level of Consciousness Level of Consciousness: Alert Orientation: Yes Intact, Yes Orientated to Time, Yes Orientated to Place, Yes Orientated to Person - Impulse Control Impulse Control: Intact - Insight and Judgement Insight and Judgement: Poor - Group Participation Particating in Group Activities: Yes - Medication Management Medication Management Adherence: Yes Treatment Course & Assessment Clinical Course & Impression: Una has returned to the unit for continued care due to expressed distress at paranoid ideation at the culmination of multiple ED presentations with a suspicious overdose occurring during this run of contacts with the hospital between psychiatric admissions. She has no complaints of side effects since increased dose of Risperdal. She has continued to show signs of psychosis with self-dialoguing. 12.04.16 Today Una reports nearing readiness for discharge per her self- assessment. She asks that we make contact with her vice president quality improvement. She says she still needs to speak with her vice president quality improvement and children herself to prepare for discharge. She continues to have a vacant stare and in general appears somewhat impoverished in her thought process. She reports no difficulties with an increased dose of Risperdal. Hospitalist consult re LE edema appreciated: Ms lino on lasix, recommended JAY stockings, elevation, fluid restriction, daily weights. 12.06.16 Continuing care of patient in coverage for Dr. Aragon, who is away this week. She continues to have an intense stare, with hyperreligious thoughts. Treatment team today raised consideration of manager intermediate care. 12.08.16 Complaint of chest pain ruled out as of cardiac origin, with Una self- assessing that complaint had been due to 'heart ache'. She is voicing reservations about transfer to [facility]. Multiple presentations to hospital in dangerous circumstances with extended partial decompensation into psychotic illness argues for extended treatment to establish firmer foundation of recovery. 12.10.16 Una was transferred by ambulance today to [facility] for extended care due to multiple recent acute hospitalizations and ED visits indicative of poor stability in the outpatient setting. Her Risperdal dose was increased during this hospitalization to 6 mg dose. While she has shown some improvements here, which I conveyed in review of the case with Dr Garrido of [facility]. She reports no longer feeling that her family is unsafe, and has denied throughout her care with me any active hallucinations or dangerous intent or plans. She does continue to have a fairly intense stare, and remains strongly religiously preoccupied. I expect that she will benefit from an extension of her care in the [facility] to establish a firmer recovery from her recent downturn. Valproic acid level checked 12.09.16 was slightly low at 45 while taking Depakote ER 1000 mg nightly. Inpatient DSM-IV Dx: Schizoaffective Disorder, Bipolar Type - [place] III Medical Illness: Arthritis knee, iron-deficiency anemia, shoulder pain, uterine polyps - [place] IV Family: Daughter involved Primary Support Group: Family and adventist - [place] V MWS-[id number]-Nifks: 40 Estimate of Highest-Past Year: 67 Discharge Planning - Discharge Planning Discharge Plan: Inpatient Hospitalization - at [facility] Medications: Current Medications Acetaminophen (Tylenol Tab*) 650 mg PO Q4H PRN PRN Reason: PAIN Last Admin: 12/10/16 04:11 Dose: 650 mg Albuterol (Ventolin Hfa Inhaler*) 2 puff INH Q4H PRN PRN Reason: SOB/WHEEZING Last Admin: 12/10/16 04:10 Dose: 2 puff Diphenhydramine HCl (Benadryl Po*) 50 mg PO BEDTIME PRN PRN Reason: INSOMNIA Last Admin: 12/05/16 22:28 Dose: 50 mg Divalproex Sodium (Depakote Er Tab(*)) 1,000 mg PO BEDTIME [facility] Last Admin: 12/09/16 20:57 Dose: 1,000 mg Furosemide (Lasix Tab*) 20 mg PO DAILY [facility] Last Admin: 12/10/16 09:39 Dose: Not Given Guaifenesin (Mucinex*) 600 mg PO BID [facility] Last Admin: 12/10/16 09:39 Dose: Not Given Nicotine (Nicotine Inhaler*) 10 mg INH Q2H PRN PRN Reason: CRAVING Risperidone (Risperdal*) 6 mg PO BEDTIME [facility] Last Admin: 12/09/16 20:57 Dose: 6 mg Discharge Planning: Prescriptions provided for discharge [] Yes [x] No Follow up care details as per social work arrangements. Patient response to discharge plan: [] eager for discharge [x] agreeable with discharge plan [] ambivalent about discharge [] disagrees with discharge today
== END 2016-12-10 09:09 | disposition short-term general hospital (02) | DRG 885 ==
LOC: ED 21:57 → BSU 11-30 06:42
PROVIDERS: ADMIT Psychiatry & Neurology Psychiatry; ATTEND Psychiatry & Neurology Psychiatry
PROC: GZHZZZZ Group Psychotherapy (ICD-10-PCS; principal; 2016-11-30)
DX: F25.0 Schizoaffective disorder, bipolar type (principal); Z68.41 Body mass index [BMI] 40.0-44.9, adult; F32.9 Major depressive disorder, single episode, unspecified; D50.9 Iron deficiency anemia, unspecified; M25.519 Pain in unspecified shoulder; N84.0 Polyp of corpus uteri; E66.9 Obesity, unspecified; F41.9 Anxiety disorder, unspecified; Z91.030 Bee allergy status; Z91.018 Allergy to other foods; M17.11 Unilateral primary osteoarthritis, right knee; Z96.652 Presence of left artificial knee joint; Z86.14 Personal history of Methicillin resistant Staphylococcus aureus infection; Z81.1 Family history of alcohol abuse and dependence; Z81.8 Family history of other mental and behavioral disorders; Z80.3 Family history of malignant neoplasm of breast; Z87.891 Personal history of nicotine dependence; R60.0 Localized edema; R07.9 Chest pain, unspecified; G47.33 Obstructive sleep apnea (adult) (pediatric); Z80.0 Family history of malignant neoplasm of digestive organs
CPT/HCPCS: 36415; 80048; 80053; 80164; 80307; 80320; 80329; 81003; 81015; 84443; 84484; 85025; 85027; 87077; 87086; 87186; 87641; 90853; 93005; 99222; 99231; 99238; 99283; A9270-GY; G0480

== ENCOUNTER 2018-02-01 06:15 | Day surgery (SDC) | payer MEDICARE, MEDICAID ==
[~2018-02-01 06:15] MED LIST: Buffered Lidocaine 0.9% SYRIN* 5 ML/SYR SYRINGE INTRADERM ONE; Famotidine IV* 10 MG/ML 2 ML (20 mg) IV ONE; Sodium Citrate/Citric Acid* 15 ML UDC PO ONE
[2018-02-01] MEDS ORDERED: Sodium Citrate/Citric Acid* 15 ML UDC ONE (06:31)
[2018-02-01] MEDS ORDERED: Famotidine IV* 10 MG/ML 2 ML (20 mg) ONE (06:31)
[2018-02-01] MEDS ORDERED: Buffered Lidocaine 0.9% SYRIN* 5 ML/SYR SYRINGE ONE (06:31)
[2018-02-01] MEDS ORDERED: Naloxone* 0.4 MG/ML 1 ML VIAL IV PRN (07:05)
[2018-02-01] MEDS ORDERED: Ondansetron INJ* 2 MG/ML VIAL IV PRN (07:05)
[2018-02-01] MEDS ORDERED: Ibuprofen TAB* 600 MG PO PRN (07:05)
[2018-02-01] MEDS ORDERED: oxyCODONE TAB* 5 MG TAB PO PRN (07:05)
[2018-02-01] MEDS ORDERED: Scopolamine 1.5 mg* PATCH TRANSDERM PRN (07:05)
[2018-02-01] MEDS ORDERED: fentaNYL* 50 MCG/ML 2 ML VIAL (100 MCG VIAL) IV PRN (07:05)
[2018-02-01] MEDS ORDERED: HYDROmorphone INJ* 1 MG/ML CARPUJECT SYRINGE IV PRN (07:05)
[2018-02-01] MEDS ORDERED: Lidocaine 2% PF * 5 ML VIAL ONE (07:17)
[2018-02-01] MEDS ORDERED: Propofol* 10 MG/ML 20 ML BTL IV PUSH ONE (07:17)
[2018-02-01] MEDS ORDERED: Midazolam* 1 MG/ML 2 ML VIAL (2 MG) ONE (07:18)
[2018-02-01] MEDS ORDERED: fentaNYL* 50 MCG/ML 2 ML VIAL (100 MCG VIAL) ONE (07:18)
[2018-02-01] MEDS ORDERED: Chloroprocaine 2%* 20 ML VIAL ONE (07:19)
[2018-02-01] MEDS ORDERED: Lidocaine 2% PF* 10 ML AMP ONE (07:20)
[2018-02-01] MEDS ORDERED: Lidocaine 1% INJ* 10 MG/ML 30 ML SDV ONE (07:45)
[2018-02-01] MEDS ORDERED: KETAMINE HCL* 50 MG/ML 10 ML VIAL ONE (07:52)
[2018-02-01] MEDS ORDERED: Ketorolac INJ* 30 MG/ML 1 ML VIAL ONE (08:03)
[2018-02-01 09:53] VITALS: BP 128/89
[2018-02-04] MEDS ORDERED: Scopolamine PATCH Remove* 1 NOTE MISC PATCH OFF ONE (07:06)
--- NOTE | 2018-02-27 23:27 | OP ---
DATE OF OPERATION: 02/01/18 - [facility] DATE OF : 64 SURGEON: Reza Zamora MD ANESTHESIA: Local paracervical block with 1% lidocaine solution, 8 cc of total lidocaine was used. PRE-OP DIAGNOSES: 1. Postmenopausal bleeding. 2. Thickened endometrium. 3. Uterine fibroids. POST-OP DIAGNOSES: 1. Postmenopausal bleeding. 2. Thickened endometrium. 3. Uterine fibroids. OPERATIVE PROCEDURE: 1. Hysteroscopy. 2. Dilation and curettage. ESTIMATED BLOOD LOSS: Minimal, less than 5 cc. SPECIMEN SENT TO PATHOLOGY: Endometrial curettings. FLUIDS: She received 600 cc of IV crystalloid fluid. URINE OUTPUT: 25 cc of clear urine. FINDINGS: The uterus was noted to be in an anteverted position. It was sounded to 10 cm. Hysteroscopically, she was noted to have a thickly proliferative endometrium with no mass, polyps or unusual lesions noted. DESCRIPTION OF PROCEDURE: The patient was taken to the operating room, where she was identified. She was placed on the operating table where she was then placed in the dorsal lithotomy position. A local paracervical block was obtained using 1% lidocaine solution at the 5 and 7 o'clock positions of the cervicovaginal junction. This was after the patient was prepped and draped. After the paracervical block was obtained, I then proceeded to sound the patient 's uterus. It was noted to be in an anteverted position, sounded to 10 cm. The cervix was then sounded until I can introduce a 30-degree diagnostic hysteroscope through the cervix. I surveyed the patient's intrauterine contents , revealed findings as noted above. At this point, the scope was removed from the uterus. A sharp curettage was performed until the cavity was deemed completely empty. A second look with the hysteroscope confirmed complete denudation of the endometrial lining. At this point, all instruments were removed from the patient's vagina. Sponge, lap and needle counts were correct x2. She was then transferred to the recovery room area in stable condition. [id number]/[facility] #: [id number] [facility]
== END 2018-02-01 10:07 | disposition home or self-care (01) ==
LOC: OR 06:15
PROVIDERS: ATTEND Obstetrics & Gynecology
DX: N95.0 Postmenopausal bleeding (principal); N84.0 Polyp of corpus uteri; Z87.891 Personal history of nicotine dependence; J45.909 Unspecified asthma, uncomplicated; D64.9 Anemia, unspecified; G47.33 Obstructive sleep apnea (adult) (pediatric); E66.01 Morbid (severe) obesity due to excess calories; Z68.41 Body mass index [BMI] 40.0-44.9, adult; R60.9 Edema, unspecified; F31.9 Bipolar disorder, unspecified; F20.89 Other schizophrenia
CPT/HCPCS: 88305; A9270-GY; J1885; J2001; J2250; J2400; J2704; J3010

== ENCOUNTER 2018-03-03 13:08 | Emergency (ER) | payer MEDICARE, MEDICAID ==
[2018-03-03 14:20] LABS: ABS Basophils 0 10^3/ul (0-0.2); ABS Eosinophils 0.1 10^3/ul (0-0.6); ABS Lymphocytes 2.1 10^3/ul (1.0-4.8); ABS Monocytes 0.6 10^3/ul (0-0.8); ABS Neutrophils 4.7 10^3/ul (1.5-7.7); ABS Nucleated RBC 0 10^3/ul; Eosinophil % 1.6 % (0-6); Hematocrit 44 % (35-47); Hemoglobin 14.5 g/dl (12.0-16.0); Lymphocyte % 28.2 % (25-47); Mean Corpuscular HGB Conc 33 g/dl (31-36); Mean Corpuscular Hemoglobin 28 pg (27-31); Mean Corpuscular Volume 83 fL (80-97); Mean Platelet Volume 6.2 um3 (7.4-10.4); Nucleated Red Blood Cells % 0.1; Platelet Count 256 10^3/ul (150-450); Red Blood Count 5.25 10^6/ul (4.00-5.40); Red Cell Distribution Width 14 % (10.5-15); White Blood Count 7.6 10^3/ul (3.5-10.8)
[2018-03-03 14:38] LABS: EGFR Non-African American 70.4 (>60)
--- NOTE | 2018-03-03 18:18 | ED ---
Tres Cook Stephanie, scribed for Valentino Bee MD on 03/03/18 at 1341 . Psychiatric Complaint - HPI Summary HPI Summary: The pt is a 57 y/o F presenting to the ED with c/o SI that began this morning. The pt denies plan and states that although she has thoughts, she will not do anything. She believes her medications need adjusting. Symptoms include increased tiredness. She denies abd pain, N/V. She was brought to the ED by the ACT team. She takes medications for bipolar disorder. - History Of Current Complaint Chief Complaint: EDMentalHealth Time Seen by Provider: 03/03/18 13:17 Hx Obtained From: Patient ?: No Onset/Duration: Gradual Onset, Lasting Hours, Still Present Timing: Constant Severity Currently: Mild Character: Depressed Aggravating Factor(s): Nothing Alleviating Factor(s): Nothing Related History: Positive For: Prior Psychiatric Issues Has Suicidal: Reports: Thoughts. Denies: With A Plan - Allergies/Home Medications Allergies/Adverse Reactions: Allergies Allergy/AdvReac Type Severity Reaction Status Date / Time olanzapine [From Zyprexa] Allergy Intermediate See Comment Verified 02/01/18 06: 36 bee venom protein (honey bee) Allergy Swelling Verified 03/03/18 13:12 kiwi Allergy Swelling Verified 03/03/18 13:12 Of Face,Lips,& Throat bee stings Allergy Severe Hives Uncoded 02/01/18 06:36 KIWI Allergy Mild SCRATCHY Uncoded 02/01/18 06:36 THROAT, RUNNY NOSE Home Medications: Home Medications Aripiprazole Maintena (NF) [Abilify Maintena (NF)] 400 mg IM Q28D 03/03/18 [ History Confirmed 03/03/18] Cholecalciferol TAB* [Vitamin D TAB*] 1,000 unit PO DAILY 03/03/18 [History Confirmed 03/03/18] Divalproex DR TAB(*) [Depakote DR(*)] 750 mg PO BEDTIME 03/03/18 [History Confirmed 03/03/18] Furosemide TAB* [Lasix TAB*] 20 mg PO DAILY 03/03/18 [History Confirmed 03/03/18 ] Multivitamin with Iron [Multiple Vitamins/Iron] 1 tab PO DAILY 03/03/18 [ History Confirmed 03/03/18] Venlafaxine EXT RELEASE CAP* [Effexor Xr CAP*] 150 mg PO DAILY 03/03/18 [ History Confirmed 03/03/18] risperiDONE TAB* [RisperDAL*] 3 mg PO BEDTIME 03/03/18 [History Confirmed ] PMH/Surg Hx/FS Hx/Imm Hx Sensory History: Denies: Hx Legally Blind EENT History: Denies: Hx Deafness Psychiatric History: Reports: Hx Bipolar Disorder - Surgical History Surgery Procedure, Year, and Place: NONE Infectious Disease History: No Infectious Disease History: Denies: Traveled Outside the [place] in Last 30 Days - Family History Known Family History: Negative: Renal Disease - Social History Occupation: Disabled Lives: Alone Alcohol Use: None Hx Substance Use: No Substance Use Type: Reports: None Hx Tobacco Use: No Smoking Status (MU): Never Smoked Tobacco Have You Smoked in the Last Year: No Review of Systems Positive: Other - increased tiredness. Negative: Fever Negative: Abdominal Pain, Vomiting, Nausea Positive: Other - SI denies plan All Other Systems Reviewed And Are Negative: Yes Physical Exam - Summary Physical Exam Summary: Appearance: Well appearing, no pain distress Skin: warm, dry, reflects adequate perfusion Head/face: normal Eyes: EOMI, LYNDSEY ENT: normal Neck: supple, non-tender Respiratory: CTA, breath sounds present Cardiovascular: RRR, pulses symmetrical Abdomen: non-tender, soft Bowel Sounds: present Musculoskeletal: normal, strength/ROM intact Neuro: normal, sensory motor intact, A&Ox3 Psych: Flat affect, SI Triage Information Reviewed: Yes Vital Signs On Initial Exam: Initial Vitals Temp Pulse Resp BP Pulse Ox 96.8 F 109 20 111/75 93 03/03/18 13:09 03/03/18 13:09 03/03/18 13:09 03/03/18 13:09 03/03/18 13:09 Vital Signs Reviewed: Yes Diagnostics - Vital Signs Vital Signs Temp Pulse Resp BP Pulse Ox 03/03/18 13:09 96.8 F 109 20 111/75 93 - Laboratory Lab Results: Lab Results 03/03/18 03/03/18 Range/Units 14:11 14:11 WBC 7.6 (3.5-10.8) 10^3/ul RBC 5.25 (4.00-5.40) 10^6/ul Hgb 14.5 (12.0-16.0) g/dl Hct 44 (35-47) % MCV 83 (80-97) fL MCH 28 (27-31) pg MCHC 33 (31-36) g/dl RDW 14 (10.5-15) % Plt Count 256 (150-450) 10^3/ul MPV 6.2 L (7.4-10.4) um3 Neut % (Auto) 62.2 (38-83) % Lymph % (Auto) 28.2 (25-47) % Anson % (Auto) 7.4 H (0-7) % Eos % (Auto) 1.6 (0-6) % Baso % (Auto) 0.6 (0-2) % Absolute Neuts (auto) 4.7 (1.5-7.7) 10^3/ul Absolute Lymphs (auto) 2.1 (1.0-4.8) 10^3/ul Absolute Monos (auto) 0.6 (0-0.8) 10^3/ul Absolute Eos (auto) 0.1 (0-0.6) 10^3/ul Absolute Basos (auto) 0 (0-0.2) 10^3/ul Absolute Nucleated RBC 0 10^3/ul Nucleated RBC % 0.1 Sodium 137 (135-145) mmol/L Potassium 4.0 (3.5-5.0) mmol/L Chloride 102 (101-111) mmol/L Carbon Dioxide 21 L (22-32) mmol/L Anion Gap 14 H (2-11) mmol/L BUN 13 (6-24) mg/dL Creatinine 0.84 (0.51-0.95) mg/dL Est GFR ( Amer) 90.5 (>60) Est GFR (Non-Af Amer) 70.4 (>60) BUN/Creatinine Ratio 15.5 (8-20) Glucose 121 H (70-100) mg/dL Calcium 9.7 (8.6-10.3) mg/dL Total Bilirubin 0.60 (0.2-1.0) mg/dL AST 20 (13-39) U/L ALT 19 (7-52) U/L Alkaline Phosphatase 76 (34-104) U/L Total Protein 8.2 (6.4-8.9) g/dL Albumin 4.3 (3.2-5.2) g/dL Globulin 3.9 (2-4) g/dL Albumin/Globulin Ratio 1.1 (1-3) TSH 1.23 (0.34-5.60) mcIU/mL Salicylates < 2.50 (<30) mg/dL Acetaminophen < 15 mcg/mL Valproic Acid 39.0 L (50-100) mcg/mL Serum Alcohol < 10 (<10) mg/dL Result Diagrams: 03/03/18 14:11 03/03/18 14:11 Lab Statement: Any lab studies that have been ordered have been reviewed, and results considered in the medical decision making process. - EKG 16:33 Cardiac Rate: NL EKG Rhythm: Sinus Rhythm - [address] Segment: Non-Specific EKG Interpretation: nml axis, nonspecific ST Course/Dx - Course Course Of Treatment: Patient has been stable throughout her ER stay. She is pending mental health evaluation by crisis evaluators. She does receive outpatient close follow-up through the act team. Signed out to oncoming ER provider in stable condition. - Differential Dx/Clinical Impression Provider Diagnosis: Depression, Suicidal ideation Discharge - Sign-Out/Discharge Documenting (check all that apply): Sign-Out Patient Signing out patient TO: Tom Blancas - Pending MHE. - Discharge Plan Condition: Stable Referrals: Ronaldo Joseph MD [Primary Care Provider] - - Billing Disposition and Condition Condition: STABLE The documentation as recorded by the Tres ramirez Stephanie accurately reflects the service I personally performed and the decisions made by , Valentino Bee MD.
[2018-03-03 19:38] LABS: Urine Appearance Cloudy; Urine Blood 3+ (Negative); Urine Color Yellow; Urine Ketones Negative (Negative); Urine Protein 1+(30 mg/dL) (Negative); Urine Specific Gravity 1.016 (1.010-1.030); Urine Urobilinogen Negative (Negative)
[2018-03-03 22:31] VITALS: BP 107/75
== END 2018-03-03 22:30 | disposition home or self-care (01) ==
LOC: MERGE 13:08 → ED 13:08
DX: F32.9 Major depressive disorder, single episode, unspecified (principal); R45.851 Suicidal ideations; Z79.899 Other long term (current) drug therapy; Z88.8 Allergy status to other drugs, medicaments and biological substances
CPT/HCPCS: 36415; 80053; 80164; 80307; 80320; 80329; 81003; 81015; 84443; 85025; 87086; 93005; 99284; G0480

== ENCOUNTER 2018-06-05 17:26 | Emergency (ER) | payer MEDICARE, MEDICAID ==
[2018-06-05] MEDS ORDERED: Aspirin 81 mg CHEW TAB* 81 MG TAB.CHEW PO ONE (17:52)
--- NOTE | 2018-06-05 18:01 | ED ---
HPI Chest Pain - HPI Summary HPI Summary: This pt is a 57 y/o female presenting [place] [facility] [place]/o intermittent chest pain x2 days. Chest pain is described as mid sternal and nonradiating. Pt states that her chest pain 2 days ago lasted for a couple of hours. Since then pt notes her chest pain has lasted for 5 minutes and then resolves on its own. She describes chest pain as "someone sitting on my chest" and pressure. Additionally notes some SOB, some dizziness. Pt has chronic swelling in LE for which she takes Lasix. She denies hx of chest pain similar to today's. Denies nausea, headache, pain in LE, wheezing. Pt called her PCP, Dr. Joseph, and was advised to come to the ED. She is currently on abilify once a month, risperdal, effexor. Her last shot of Abilify was at the end of April 2018. Pt denies SI or HI thoughts/plan. FHx includes father who in his sleep, but it is unsure if it was a heart attack. Allergic to Zyprexa. - History of Current Complaint Chief Complaint: EDChestPainROMI Time Seen by Provider: 06/05/18 17:52 Hx Obtained From: Patient Onset/Duration: Started Days Ago, Atraumatic, Still Present Timing: Intermittent, Lasting Days Initial Severity: Moderate Current Severity: None Pain Intensity: 0 Pain Scale Used: 0-10 Numeric Chest Pain Location: Mid Sternal Chest Pain Radiates: No Character: Heaviness, Pressure/Squeezing - Pressure Aggravating Factor(s): Nothing Alleviating Factor(s): Nothing Associated Signs and Symptoms: Positive: Chest Pain, Dizziness, Shortness of Breath, Swelling - chronic. Negative: Headaches, Fever, Chills, Nausea, Vomiting, Other: - pain in LE - Additional Pertinent History Primary Care Physician: [id number] - Allergy/Home Medications Allergies/Adverse Reactions: Allergies Allergy/AdvReac Type Severity Reaction Status Date / Time olanzapine [From Zyprexa] Allergy Intermediate See Comment Verified 06/05/18 17: 35 bee venom protein (honey bee) Allergy Swelling Verified 06/05/18 17:35 kiwi Allergy Swelling Verified 06/05/18 17:35 Of Face,Lips,& Throat bee stings Allergy Severe Hives Uncoded 06/05/18 17:35 KIWI Allergy Mild SCRATCHY Uncoded 06/05/18 17:35 THROAT, RUNNY NOSE Home Medications: Home Medications Multivitamins/Minerals TAB* [Theragran/minerals TAB*] 1 tab PO DAILY 06/05/18 [ History Confirmed 06/05/18] PMH/Surg Hx/FS Hx/Imm Hx Previously Healthy: No Endocrine/Hematology History: Reports: Hx Anemia - taking iron tablets Denies: Hx Anticoagulant Therapy, Hx Blood Disorders, Hx Blood Transfusions, Hx Diabetes, Hx Thyroid Disease, Hx Unexplained Bleeding Cardiovascular History: Denies: Hx Aneurysm, Hx Atrial Fibrillation, Hx Hypertension, Hx Myocardial Infarction, Hx Pacemaker/ICD, Other Cardiovascular Problems/Disorders Respiratory History: Reports: Hx Asthma, Hx Sleep Apnea Denies: Hx Chronic Obstructive Pulmonary Disease (COPD), Other Respiratory Problems/Disorders GI History: Denies: Other GI Disorders History: Reports: Other Problems/Disorders - spotting on occasion Denies: Hx Renal Disease Musculoskeletal History: Reports: Hx Arthritis - Bilateral Knees, Other Musculoskeletal History - Bilateral total knee replacements Sensory History: Reports: Hx Contacts or Glasses - Glasses Denies: Hx Legally Blind, Hx Deafness, Hx Hearing Aid Opthamlomology History: Reports: Hx Contacts or Glasses - Glasses Denies: Hx Legally Blind Neurological History: Reports: Hx Seizures - Per pt-"zones out" Denies: Hx Dementia, Other Neuro Impairments/Disorders Psychiatric History: Reports: Hx Anxiety - history of, none recent per pt, Hx Depression - ON MEDICATION FOR, Hx Inpatient Treatment, Hx Community Mental Health Tx, Hx Bipolar Disorder, Hx Suicide Attempt - OD and Cut wrists Denies: Hx Eating Disorder, Hx Panic Disorder, Hx of Violent Episodes Against Others, Hx Substance Abuse - Cancer History Hx Chemotherapy: No Hx Radiation Therapy: No - Surgical History Surgery Procedure, Year, and Place: NONE Hx Anesthesia Reactions: No Infectious Disease History: No Infectious Disease History: Reports: Hx of Known/Suspected MRSA - Per pt-Right lower anterior leg dx-2015, History Other Infectious Disease - Scabies Denies: Hx Clostridium Difficile, Hx Hepatitis, Hx Human Immunodeficiency Virus (HIV), Traveled Outside the [place] in Last 30 Days - Family History Known Family History: Positive: Other - schizophrenia, bipolar disorder, depression, alcohol abuse, breast CA Negative: Renal Disease Family History: Father during his sleep, unsure if it was a heart attack. - Social History Alcohol Use: None Hx Substance Use: No Substance Use Type: Reports: None Substance Use Comment - Amount & Last Used: tried 2-3 times Hx Tobacco Use: No Smoking Status (MU): Never Smoked Tobacco Type: Cigarettes Amount Used/How Often: 1 ppd for 10 years Have You Smoked in the Last Year: No Review of Systems Negative: Fever, Chills Positive: Chest Pain Positive: Shortness Of Breath, Cough - intermittent Negative: Nausea Positive: Edema - in LE Skin: Negative Neurological: Other - POS: dizziness Negative: Headache Negative: Other - SI or HI thoughts/plan All Other Systems Reviewed And Are Negative: Yes Physical Exam - Summary Physical Exam Summary: Appearance: Well-appearing, no pain distress, well-nourished Skin: Warm, color reflects adequate perfusion, dry Head: Normal Head/Face inspection, atraumatic Eyes: Conjunctiva clear ENT: Normal inspection Neck: Supple, no nodes, no JVD Respiratory: Lungs clear, normal breath sounds, no respiratory distress Cardio: RRR, No murmur, pulses normal, brisk capillary refill Abdomen: Soft, nontender Bowel sounds: Present Musculoskeletal: Strength Intact/ROM intact, no calf tenderness, no edema. Psychological: [place] affect Neuro: Alert, muscle tone normal, no focal deficit Triage Information Reviewed: Yes Vital Signs On Initial Exam: Initial Vitals Temp Pulse Resp BP Pulse Ox 98.1 F 88 20 111/80 95 06/05/18 17:33 06/05/18 17:33 06/05/18 17:33 06/05/18 17:33 06/05/18 17:33 Vital Signs Reviewed: Yes Diagnostics - Vital Signs Vital Signs Temp Pulse Resp BP Pulse Ox 06/05/18 17:33 98.1 F 88 20 111/80 95 - Laboratory Result Diagrams: 06/05/18 18:37 06/05/18 18:37 Lab Statement: Any lab studies that have been ordered have been reviewed, and results considered in the medical decision making process. - Radiology Chest XR Xray Interpretation: Positive (See Comments) - nodule vs mass on right upper lobe. Not present on chest XR done on 11/12/16. Radiology Interpretation Completed By: ED Physician - CT CTA Chest CT Interpretation: No Acute Changes - IMPRESSION: 1. Right first costosternal joint hypertrophy correlating with findings on chest x-ray. 2. No pulmonary emboli. Lungs with no pulmonary nodules, masses, or consolidations. No bronchiectasis, peribronchial, thickening, or luminal defects. Dr. Vazquez has reviewed this report. CT Interpretation Completed By: Radiologist - EKG 17:39 Cardiac Rate: NL - at 83 bpm EKG Rhythm: Sinus Rhythm ST Segment: Non-Specific Ectopy: None EKG Interpretation: nml AV/IV CT, nml QTc. [place] is -13 EKG Comparison: No Significant Change - compared to 03/03/18 Re-Evaluation - Re-Evaluation First Eval Re-Evaluation Time: 20:17 Change: Unchanged Comment: I discussed lab and chest XR results with the pt. I reviewed with pt that we have ordered a chest CTA. BP 80/69, HR of 75 bpm, O2 sat is 92% on room air. Therefore we applied 2 L of NC O2. Repeat blood pressure is 102/68. Pt did not feel worse. Second Eval Re-Evaluation Time: 21:55 Change: Improved Comment: ambulatory to BR. Chest Pain Course/Dx - Course Course Of Treatment: Pt medications reviewed this visit. Allergies noted. Pt is a 57 y/o female with mental health history on 2 mental health medications presents to the ED with chest pain. Two troponins are both 0.00, magnesium is 1.7, for which pt will be replaced with oral magnesium. Chest XR shows nodule vs mass on right upper lobe as read by ED provider. CTA chest is negative for PE and pulmonary nodules, masses, or consolidations. - Chest Pain Differential Diagnosis/HQI/PQRI: Acute MN, ACS, CHF, GI Disease, Lower Respiratory Infection, Pulmonary Edema, Pulmonary Embolism - Diagnoses Provider Diagnoses: Chest pain, Hypomagnesemia, Hematuria Discharge - Sign-Out/Discharge Documenting (check all that apply): Patient Departure - Discharge - Discharge Plan Condition: Stable Disposition: HOME Patient Education Materials: Chest Pain (ED), Hematuria (ED) Referrals: Ronaldo Joseph MD [Primary Care Provider] - 2 Days Additional Instructions: We did not find a serious cause for your chest pain today. We have given you a copy of your labs and a CTA of your chest that were done today. You should continue your usual medications. You should have definite follow up with Dr. Joseph in the next 1-2 days. There was some microscopic blood in your urine today. You will need to have this rechecked. This does not appear to be related to your chest discomfort. Return to the ER if any new or worsening symptoms. - Billing Disposition and Condition Condition: STABLE Disposition: Home - Attestation Statements Document Initiated by Harleyibe: Yes Documenting Scribe: Sammie Reyes Provider For Whom Harleyibe is Documenting (Include Credential): Dr. Chante Vazquez MD Scribe Attestation: Sammie Cook, scribed for Dr. Chante Vazquez MD on 06/05/18 at 2244.
[2018-06-05 18:51] LABS: ABS Basophils 0 10^3/ul (0-0.2); ABS Eosinophils 0.1 10^3/ul (0-0.6); ABS Lymphocytes 1.9 10^3/ul (1.0-4.8); ABS Monocytes 0.4 10^3/ul (0-0.8); ABS Neutrophils 4.1 10^3/ul (1.5-7.7); ABS Nucleated RBC 0 10^3/ul; Hematocrit 40 % (35-47); Hemoglobin 13.1 g/dl (12.0-16.0); Lymphocyte % 28.9 % (25-47); Mean Corpuscular HGB Conc 33 g/dl (31-36); Mean Corpuscular Hemoglobin 27 pg (27-31); Mean Corpuscular Volume 84 fL (80-97); Mean Platelet Volume 6.5 um3 (7.4-10.4); Nucleated Red Blood Cells % 0.1; Platelet Count 287 10^3/ul (150-450); Red Blood Count 4.79 10^6/ul (4.00-5.40); Red Cell Distribution Width 14 % (10.5-15); White Blood Count 6.6 10^3/ul (3.5-10.8)
[2018-06-05 18:58] LABS: INR 0.94 (0.77-1.02)
[2018-06-05 19:17] LABS: EGFR Non-African American 84.1 (>60)
[2018-06-05] MEDS ORDERED: Magnesium Oxide TAB* 400 MG PO ONE (19:29)
[2018-06-05] MEDS ORDERED: Iohexol 350* (CONTRAST) 500 ML MDV IV ONE (19:50)
--- NOTE | 2018-06-05 21:44 | RAD ---
EXAM: CT Angiography Chest With Intravenous Contrast CLINICAL HISTORY: 57 years old, female; Abnormal findings; Other: Abnormal chest xray; Prior surgery; Additional info: Chest pain, abnormal chest xray rul TECHNIQUE: Axial computed tomographic angiography images of the chest with intravenous contrast using pulmonary embolism protocol. All CT scans at this facility use at least one of these dose optimization techniques: automated exposure control; mA and/or kV adjustment per patient size (includes targeted exams where dose is matched to clinical indication); or iterative reconstruction. MIP reconstructed images were created and reviewed. Coronal and sagittal reformatted images were created and reviewed. CONTRAST: 86 mL of omni administered intravenously. COMPARISON: OT - CXR PORTAP CHEST AP PORTABLE 11/12/2016 10:47 AM FINDINGS: Pulmonary arteries: Pulmonary arteries are well opacified to the subsegmental branches. Normal caliber main pulmonary artery. No filling defects throughout the pulmonary artery tree. Aorta: Normal caliber aorta with no evidence of dissection or rupture. Lungs: No pulmonary nodules, masses, or consolidations. No bronchiectasis, peribronchial thickening, or luminal defects. Pleural space: Normal. No significant effusion. No pneumothorax. Heart: Normal. No cardiomegaly. No significant pericardial effusion. No evidence of RV dysfunction. Thyroid: No thyroid nodules. Bones/joints: The thoracic spine demonstrates mild degenerative changes at multiple levels. Hypertrophy of the right first costosternal joint correlate with findings on radiograph. No fractures. No suspicious bone lesions. No dislocation. Soft tissues: Normal. Lymph nodes: Normal. No enlarged lymph nodes. IMPRESSION: 1. Right first costosternal joint hypertrophy correlating with findings on chest x-ray. 2. No pulmonary emboli.
[2018-06-05 22:37] LABS: Urine Appearance Clear; Urine Blood 3+ (Negative); Urine Color Yellow; Urine Ketones Negative (Negative); Urine Protein Negative (Negative); Urine Red Blood Cell 3+(>10/hpf) (Absent); Urine Specific Gravity 1.029 (1.010-1.030); Urine Urobilinogen Negative (Negative); Urine White Blood Cell Trace(0-5/hpf) (Absent)
[2018-06-05 23:03] VITALS: BP 120/84
--- NOTE | 2018-06-06 07:47 | RAD ---
Indication: Chest pain. 2 views of the chest including dual energy PA views demonstrate no mediastinal shift. Heart is of normal size and configuration. Lung galeano are clear. Prominent right first rib end is noted. When compared to previous exam of November 12, 2016 this is unchanged. IMPRESSION: No active cardiopulmonary disease is noted. R2
== END 2018-06-05 23:03 | disposition home or self-care (01) ==
LOC: ED 17:26
DX: R07.9 Chest pain, unspecified (principal); E83.42 Hypomagnesemia; R31.9 Hematuria, unspecified; R42 Dizziness and giddiness; R06.02 Shortness of breath; R05 Cough
CPT/HCPCS: 36415; 71046; 71275; 80053; 81003; 81015; 82550; 82553; 83605; 83735; 83880; 84436; 84443; 84484; 85025; 85379; 85610; 85730; 87086; 93005; 99283; A9270-GY; Q9967

== ENCOUNTER 2018-06-16 20:16 | Emergency (ER) | payer MEDICARE, MEDICAID ==
--- NOTE | 2018-06-16 20:51 | ED ---
Dizziness - HPI Summary HPI Summary: Patient is a 58 y/o F w/ c/o dizziness onsetting this morning. Provider in room to see patient at 2043. Dizziness is reported to be constant and character is described as feeling near syncopal and sometimes like room-spinning. Patient denies any pain, notes nausea and some SOB. She reports Hx of similar episodes of dizziness. However she notes present episode is "the worst". Prior episodes are described as infrequent. Patient reports receiving Dx of UTI three days ago , took Bactrim yesterday and today. PMHx of bipolar disorder, she reports taking Effexor, Risperdal. Home medications and allergies reviewed. - History Of Current Complaint Stated Complaint: DIZZINESS Hx Obtained From: Patient Onset/Duration: Still Present Timing: Hours - onset this morning Severity Currently: None - pain denied in the room Character: Room Spinning, Weak - feeling near syncopal Associated Signs And Symptoms: Positive: Nausea, SOB - Allergies/Home Medications Allergies/Adverse Reactions: Allergies Allergy/AdvReac Type Severity Reaction Status Date / Time olanzapine [From Zyprexa] Allergy Intermediate See Comment Verified 06/05/18 17: 35 bee venom protein (honey bee) Allergy Swelling Verified 06/05/18 17:35 kiwi Allergy Swelling Verified 06/05/18 17:35 Of Face,Lips,& Throat bee stings Allergy Severe Hives Uncoded 06/05/18 17:35 KIWI Allergy Mild SCRATCHY Uncoded 06/05/18 17:35 THROAT, RUNNY NOSE PMH/Surg Hx/FS Hx/Imm Hx Endocrine/Hematology History: Reports: Hx Anemia - taking iron tablets Denies: Hx Anticoagulant Therapy, Hx Blood Disorders, Hx Blood Transfusions, Hx Diabetes, Hx Thyroid Disease, Hx Unexplained Bleeding Cardiovascular History: Denies: Hx Aneurysm, Hx Atrial Fibrillation, Hx Hypertension, Hx Myocardial Infarction, Hx Pacemaker/ICD, Other Cardiovascular Problems/Disorders Respiratory History: Reports: Hx Asthma, Hx Sleep Apnea Denies: Hx Chronic Obstructive Pulmonary Disease (COPD), Other Respiratory Problems/Disorders GI History: Denies: Other GI Disorders History: Reports: Other Problems/Disorders - spotting on occasion; UTI Denies: Hx Renal Disease Musculoskeletal History: Reports: Hx Arthritis - Bilateral Knees, Other Musculoskeletal History - Bilateral total knee replacements Sensory History: Reports: Hx Contacts or Glasses - Glasses Denies: Hx Legally Blind, Hx Deafness, Hx Hearing Aid Opthamlomology History: Reports: Hx Contacts or Glasses - Glasses Denies: Hx Legally Blind Neurological History: Reports: Hx Seizures - Per pt-"zones out" Denies: Hx Dementia, Other Neuro Impairments/Disorders Psychiatric History: Reports: Hx Anxiety - history of, none recent per pt, Hx Depression - ON MEDICATION FOR, Hx Inpatient Treatment, Hx Community Mental Health Tx, Hx Bipolar Disorder, Hx Suicide Attempt - OD and Cut wrists Denies: Hx Eating Disorder, Hx Panic Disorder, Hx of Violent Episodes Against Others, Hx Substance Abuse - Cancer History Hx Chemotherapy: No Hx Radiation Therapy: No - Surgical History Surgery Procedure, Year, and Place: NONE Hx Anesthesia Reactions: No Infectious Disease History: Reports: Hx of Known/Suspected MRSA - Per pt-Right lower anterior leg dx-2015, History Other Infectious Disease - Scabies Denies: Hx Clostridium Difficile, Hx Hepatitis, Hx Human Immunodeficiency Virus (HIV) - Family History Known Family History: Positive: Other - schizophrenia, bipolar disorder, depression, alcohol abuse, breast CA Negative: Renal Disease Family History: Father during his sleep, unsure if it was a heart attack. - Social History Alcohol Use: None Hx Substance Use: No Substance Use Type: Reports: None Substance Use Comment - Amount & Last Used: tried 2-3 times Hx Tobacco Use: No Smoking Status (MU): Never Smoked Tobacco Type: Cigarettes Amount Used/How Often: 1 ppd for 10 years Have You Smoked in the Last Year: No Review of Systems Positive: Other - NEGATIVE: any pain Positive: Shortness Of Breath Positive: Nausea Neurological: Other - dizziness All Other Systems Reviewed And Are Negative: Yes Physical Exam - Summary Physical Exam Summary: VITAL SIGNS: Reviewed. GENERAL: Patient is a well-developed and nourished female who is lying comfortable in the stretcher. Patient is not in any acute respiratory distress. HEAD AND FACE: No signs of trauma. No ecchymosis, hematomas or skull depressions. No sinus tenderness. EYES: PERRLA, EOMI x 2, No injected conjunctiva, no nystagmus. EARS: Hearing grossly intact. Ear canals and tympanic membranes are within normal limits. MOUTH: Oropharynx within normal limits. NECK: Supple, trachea is midline, no adenopathy, no JVD, no carotid bruit, no c- spine tenderness, neck with full ROM. CHEST: Symmetric, no tenderness at palpation LUNGS: Clear to auscultation bilaterally. No wheezing or crackles. CVS: Regular rate and rhythm, S1 and S2 present, no murmurs or gallops appreciated. ABDOMEN: Soft, non-tender. No signs of distention. No rebound no guarding, and no masses palpated. Bowel sounds are normal. EXTREMITIES: FROM in all major joints, no edema, no cyanosis or clubbing. NEURO: Alert and oriented x 3. No acute neurological deficits. Speech is normal and follows commands. SKIN: Dry and warm Triage Information Reviewed: Yes Vital Signs On Initial Exam: Initial Vitals Temp Pulse Resp BP Pulse Ox 100.3 F 95 16 124/74 93 06/16/18 20:19 06/16/18 20:19 06/16/18 20:19 06/16/18 20:19 06/16/18 20:19 Vital Signs Reviewed: Yes Diagnostics - Laboratory Result Diagrams: 06/16/18 21:21 06/16/18 21:21 Lab Statement: Any lab studies that have been ordered have been reviewed, and results considered in the medical decision making process. - Radiology CXR Xray Interpretation: No Acute Changes Radiology Interpretation Completed By: ED Physician - no acute process, pending official report - EKG 2218 Cardiac Rate: NL - rate of 87 bpm EKG Rhythm: Sinus Rhythm EKG Interpretation: normal axis, normal interval, no ischemic changes Re-Evaluation - Re-Evaluation First Eval Re-Evaluation Time: 00:03 Comment: Results of CXR, EKG, and labs were discussed with patient. Patient will be discharged to home and follow up with PCP in three days. Patient understands and agrees with this plan. Dizzy Course/Dx - Course Assessment/Plan: Patient is a 58 y/o F w/ c/o dizziness onsetting this morning. Provider in room to see patient at 2043. Dizziness is reported to be constant and character is described as feeling near syncopal and sometimes like room- spinning. Patient denies any pain, notes nausea and some SOB. She reports Hx of similar episodes of dizziness. However she notes present episode is "the worst" . Prior episodes are described as infrequent. Patient reports receiving Dx of UTI three days ago, took Bactrim yesterday and today. PMHx of bipolar disorder, she reports taking Effexor, Risperdal. PE revealed no abnormal findings. During ED course, patient was given fluids, antivert 25 mg PO ONCE, Levaquin 500 mg PO ONCE, and Tylenol 975 mg PO ONCE. CXR showed no acute process. EKG showed normal sinus rate and rhythm with 87 BPM, normal axis, normal interval, and no ischemic changes. Influenza A and B were negative. Tox showed Valproic Acid < 13. UA showed urine blood 3+, urine leukocyte esterase trace, urine WBC 2+ (11- 20/hpf), urine RBC 3+(>/hpf), urine squamous eptih cells were present. Bloodwork showed TSH 1.03, creatinine .97, magnesium 1.5. Results of CXR, EKG, and labs were discussed with patient. Patient will be discharged to home and follow up with PCP in three days. Patient understands and agrees with this plan. Dx of UTI and dizziness. - Diagnoses Provider Diagnoses: UTI (urinary tract infection), Dizziness Discharge - Sign-Out/Discharge Documenting (check all that apply): Patient Departure - discharge - Discharge Plan Condition: Stable Disposition: HOME Prescriptions: Ibuprofen TAB* [Motrin TAB* 800 MG] 800 mg PO Q6H PRN #30 tab PRN Reason: Fever Levofloxacin TAB* [Levaquin TAB*] 500 mg PO DAILY #7 tab Patient Education Materials: Urinary Tract Infection in Women (ED), Dizziness ( ED) Referrals: Ronaldo Joseph MD [Primary Care Provider] - 2 Days Additional Instructions: RETURN TO THE EMERGENCY DEPARTMENT FOR CHANGING OR WORSENING SYMPTOMS. FOLLOW UP WITH PRIMARY CARE PHYSICIAN IN 1-2 DAYS. - Attestation Statements Document Initiated by Scribe: Yes Documenting Scribe: Sherman Braun Provider For Whom Ricardo is Documenting (Include Credential): Sarah Ruelas MD Scribe Attestation: Sherman Cook , scribed for Sarah Ruelas MD on 06/17/18 at 0044.
[2018-06-16] MEDS ORDERED: NS 0.9% 1000 ML* 1,000 ML IV ONE (20:57)
[2018-06-16] MEDS ORDERED: Meclizine TAB* 12.5 MG PO ONE (20:57)
[2018-06-16] MEDS ORDERED: NS 0.9% 1000 ML* 2,000 ML IV ONE (21:13)
[2018-06-16] MEDS ORDERED: Acetaminophen TAB* 325 MG PO ONE (21:14)
[2018-06-16 21:32] LABS: ABS Basophils 0 10^3/ul (0-0.2); ABS Eosinophils 0 10^3/ul (0-0.6); ABS Lymphocytes 0.5 10^3/ul (1.0-4.8); ABS Monocytes 0.3 10^3/ul (0-0.8); ABS Neutrophils 4.2 10^3/ul (1.5-7.7); ABS Nucleated RBC 0 10^3/ul; Eosinophil % 0.9 % (0-6); Hematocrit 40 % (35-47); Lymphocyte % 9.7 % (25-47); Mean Corpuscular HGB Conc 33 g/dl (31-36); Mean Corpuscular Hemoglobin 27 pg (27-31); Mean Corpuscular Volume 83 fL (80-97); Mean Platelet Volume 6.4 um3 (7.4-10.4); Nucleated Red Blood Cells % 0; Platelet Count 252 10^3/ul (150-450); Red Cell Distribution Width 14 % (10.5-15); White Blood Count 5.1 10^3/ul (3.5-10.8)
[2018-06-16 21:40] LABS: INR 0.99 (0.77-1.02)
[2018-06-16 21:53] LABS: EGFR Non-African American 59.4 (>60)
[2018-06-16 23:10] LABS: Urine Appearance Cloudy; Urine Blood 3+ (Negative); Urine Color Yellow; Urine Ketones Negative (Negative); Urine Protein Negative (Negative); Urine Specific Gravity 1.013 (1.010-1.030); Urine Urobilinogen Negative (Negative)
[2018-06-16 23:14] LABS: Urine Red Blood Cell 3+(>10/hpf) (Absent); Urine White Blood Cell 2+(11-20/hpf) (Absent)
[2018-06-17] MEDS ORDERED: Levofloxacin TAB* 500 MG PO ONE (00:09)
[2018-06-17 01:15] VITALS: BP 121/74
--- NOTE | 2018-06-17 07:54 | RAD ---
HISTORY: Fever COMPARISONS: June 05, 2018 VIEWS: 1: frontal AP view of the chest at 9:28 PM FINDINGS: LINES AND TUBES: None. CARDIOMEDIASTINAL SILHOUETTE: The cardiac silhouette is enlarged. The cardiomediastinal silhouette is otherwise normal for portable technique. PLEURA: The costophrenic angles are sharp. No pleural abnormalities are noted. LUNG PARENCHYMA: The lungs are clear. ABDOMEN: The upper abdomen is clear. There is no subphrenic gas. BONES AND SOFT TISSUES: No bone or soft tissue abnormalities are noted. IMPRESSION: CARDIOMEGALY. R2
== END 2018-06-17 00:55 | disposition home or self-care (01) ==
LOC: ED 20:16
DX: R42 Dizziness and giddiness (principal); N39.0 Urinary tract infection, site not specified; I51.7 Cardiomegaly; F31.9 Bipolar disorder, unspecified; D64.9 Anemia, unspecified; Z79.899 Other long term (current) drug therapy; Z88.8 Allergy status to other drugs, medicaments and biological substances
CPT/HCPCS: 36415; 71045; 80053; 80164; 81003; 81015; 83735; 84443; 84484; 85025; 85610; 85730; 87040; 87086; 93005; 99282; A9270-GY

== ENCOUNTER 2018-12-01 12:52 | Emergency (ER) | payer MEDICARE, MEDICAID ==
[2018-12-01] MEDS ORDERED: Acetaminophen TAB* 325 MG PO ONE (13:15)
[2018-12-01] MEDS ORDERED: Albuterol/Ipratropium NEB.SOL* Albuterol 2.5 MG/Ipratropium 0.5 MG 3 ML INH ONE (13:15)
[2018-12-01] MEDS ORDERED: Meclizine TAB* 12.5 MG PO ONE (13:15)
--- NOTE | 2018-12-01 13:20 | ED ---
Influenza-Like Illness - HPI Summary HPI Summary: The patient is a 58 y/o F presenting to [facility] arriving by ambulance with a chief complaint of sudden onset flu-like symptoms for two days. She additionally c/o nonproductive cough, dizziness, and SOB. The dizziness is aggravated by standing up. She reports drinking plenty of fluids. She is not currently in pain. She denies CP and lower extremity edema. She has hx of bronchiolitis, but no asthma or COPD. No EtOH or smoking. - History of Current Complaint Chief Complaint: EDFluSymptoms Time Seen by Provider: 12/01/18 13:06 Hx Obtained From: Patient Onset/Duration: Sudden Onset, Lasting Days - two, Still Present Severity: Moderate Associated Signs & Symptoms: Cough - nonproductive - Allergy/Home Medications Allergies/Adverse Reactions: Allergies Allergy/AdvReac Type Severity Reaction Status Date / Time olanzapine [From Zyprexa] Allergy Intermediate See Comment Verified 06/05/18 17: 35 bee venom protein (honey bee) Allergy Swelling Verified 06/05/18 17:35 kiwi Allergy Swelling Verified 06/05/18 17:35 Of Face,Lips,& Throat bee stings Allergy Severe Hives Uncoded 06/05/18 17:35 KIWI Allergy Mild SCRATCHY Uncoded 06/05/18 17:35 THROAT, RUNNY NOSE PMH/Surg Hx/FS Hx/Imm Hx Endocrine/Hematology History: Reports: Hx Anemia - taking iron tablets Denies: Hx Anticoagulant Therapy, Hx Blood Disorders, Hx Blood Transfusions, Hx Diabetes, Hx Thyroid Disease, Hx Unexplained Bleeding Cardiovascular History: Denies: Hx Aneurysm, Hx Atrial Fibrillation, Hx Hypertension, Hx Myocardial Infarction, Hx Pacemaker/ICD, Other Cardiovascular Problems/Disorders Respiratory History: Reports: Hx Asthma, Hx Sleep Apnea Denies: Hx Chronic Obstructive Pulmonary Disease (COPD), Other Respiratory Problems/Disorders GI History: Denies: Other GI Disorders History: Reports: Other Problems/Disorders - spotting on occasion; UTI Denies: Hx Renal Disease Musculoskeletal History: Reports: Hx Arthritis - Bilateral Knees, Other Musculoskeletal History - Bilateral total knee replacements Sensory History: Reports: Hx Contacts or Glasses - Glasses Denies: Hx Legally Blind, Hx Deafness, Hx Hearing Aid Opthamlomology History: Reports: Hx Contacts or Glasses - Glasses Denies: Hx Legally Blind Neurological History: Reports: Hx Seizures Denies: Hx Dementia, Other Neuro Impairments/Disorders Psychiatric History: Reports: Hx Anxiety - history of, none recent per pt, Hx Depression - ON MEDICATION FOR, Hx Inpatient Treatment, Hx Community Mental Health Tx, Hx Bipolar Disorder, Hx Suicide Attempt - OD and Cut wrists Denies: Hx Eating Disorder, Hx Panic Disorder, Hx of Violent Episodes Against Others, Hx Substance Abuse - Cancer History Hx Chemotherapy: No Hx Radiation Therapy: No - Surgical History Surgery Procedure, Year, and Place: NONE Hx Anesthesia Reactions: No Infectious Disease History: No Infectious Disease History: Reports: Hx of Known/Suspected MRSA - Per pt-Right lower anterior leg dx-2015, History Other Infectious Disease - Scabies Denies: Hx Clostridium Difficile, Hx Hepatitis, Hx Human Immunodeficiency Virus (HIV), Traveled Outside the [place] in Last 30 Days - Family History Known Family History: Positive: Other - schizophrenia, bipolar disorder, depression, alcohol abuse, breast CA Negative: Renal Disease Family History: Father during his sleep, unsure if it was a heart attack. - Social History Alcohol Use: None Hx Substance Use: No Substance Use Type: Reports: None Substance Use Comment - Amount & Last Used: tried 2-3 times Hx Tobacco Use: No Smoking Status (MU): Never Smoked Tobacco Type: Cigarettes Amount Used/How Often: 1 ppd for 10 years Have You Smoked in the Last Year: No Review of Systems Negative: Chest Pain Positive: Shortness Of Breath, Cough - nonproductive Negative: Edema Neurological: Other - dizziness All Other Systems Reviewed And Are Negative: Yes Physical Exam - Summary Physical Exam Summary: VITAL SIGNS: Reviewed. Tachycardic, febrile, slightly hypoxic. GENERAL: Patient is a well-developed and obese female who is lying comfortable in the stretcher. Patient is not in any acute respiratory distress. HEAD AND FACE: No signs of trauma. No ecchymosis, hematomas or skull depressions. No sinus tenderness. EYES: PERRLA, EOMI x 2, No injected conjunctiva, no nystagmus. EARS: Hearing grossly intact. Ear canals and tympanic membranes are within normal limits. MOUTH: Oropharynx within normal limits. NECK: Supple, trachea is midline, no adenopathy, no JVD, no carotid bruit, no c- spine tenderness, neck with full ROM. CHEST: Symmetric, no tenderness at palpation LUNGS: Wheezes bilaterally, diminished breath sounds in the left base, no crackles. CVS: Tachycardic with regular rhythm, S1 and S2 present, no murmurs or gallops appreciated. ABDOMEN: Soft, non-tender. No signs of distention. No rebound no guarding, and no masses palpated. Bowel sounds are normal. EXTREMITIES: FROM in all major joints, no edema, no cyanosis or clubbing. NEURO: Alert and oriented x 3. No acute neurological deficits. Speech is normal and follows commands. GCS: 15. SKIN: Dry and warm. Febrile. Triage Information Reviewed: Yes Vital Signs On Initial Exam: Initial Vitals Temp Pulse Resp BP Pulse Ox 100.6 F 106 20 131/91 92 12/01/18 13:07 12/01/18 13:07 12/01/18 13:07 12/01/18 13:07 12/01/18 13:07 Vital Signs Reviewed: Yes - Pool Coma Scale Best Eye Response: 4 - Spontaneous Best Motor Response: 6 - Obeys Commands Best Verbal Response: 5 - Oriented Coma Scale Total: 15 Diagnostics - Vital Signs Vital Signs Temp Pulse Resp BP Pulse Ox 12/01/18 13:07 100.6 F 106 20 131/91 92 - Laboratory Result Diagrams: 12/01/18 14:16 12/01/18 14:16 Lab Statement: Any lab studies that have been ordered have been reviewed, and results considered in the medical decision making process. - Radiology CXR Radiology Interpretation Completed By: Radiologist Summary of Radiographic Findings: Stable cardiomegaly. ED physician has reviewed this report. - CT Brain CT CT Interpretation Completed By: Radiologist Summary of CT Findings: No evidence for acute intracranial abnormality. ED physician has reviewed this report. - EKG 13:17 Cardiac Rate: Tachycardia - 101 BPM EKG Rhythm: Sinus Tachycardia EKG Comparison: No Significant Change - Similar to 06/08/2018. Summary of EKG Findings: No ST elevations. Re-Evaluation - Re-Evaluation First Eval Re-Evaluation Time: 15:00 Change: Unchanged Comment: I spoke with the patient concerning results and discharge home. Flu Symptom Course/Dx - Course Assessment/Plan: This patient is a 58-year-old female who presents to the emergency department with a chief complaint of having dizziness, shortness of breath, runny nose and dry cough. In the ED course the patient was found to be febrile therefore the patient was given Tylenol, she was given IV fluids, also she was wheezing therefore the patient was given a DuoNeb. Patient does have any history of COPD or asthma. Chest x-ray impression: Is stable cardiomegaly. Head CT impression: No evidence for acute intracranial abnormality. Influenza A is positive. In the ED course the patient was given Tamiflu. She was also given meclizine for the dizziness. Blood work without any significant abnormality except for carbon dioxide of 20, glucose 129, magnesium 1.6 for which the patient was feeling magnesium by mouth. The patient also has an increased C- reactive protein of 94.3. Urinalysis is negative for UTI. After the patient was hydrated, given Tylenol and a DuoNeb of his symptoms resolved. I reexamined the lungs, and they also clear to auscultation bilaterally. At this point the patient will be discharged home with follow-up with primary care physician. I discussed all the findings and test results with the patient. Patient was instructed to return to the emergency room immediately if any of the symptoms return or worsens. Plan of care was discussed with the patient and understands and agrees. All questions were answered at patient satisfaction. There were no further complaints or concerns. Lung exam before discharge: CTA B/L. Good air exchange. No wheezing or crackles heard. CVS: S1 and S2 present. No murmurs appreciated. Patient is alert and oriented x 3. Patient is hemodynamically stable. Patient will be discharged home with follow up PCP in the next 2-3 days. - Diagnoses Differential Diagnosis/HQI/PQRI: Positive: Bronchitis, Broncholiolitis, Influenza, Pneumonia, Upper Respiratory Infection Provider Diagnoses: Influenza A Discharge - Sign-Out/Discharge Documenting (check all that apply): Patient Departure - Patient will be discharged home. Patient Received Moderate/Deep Sedation with Procedure: No - Discharge Plan Condition: Stable Disposition: HOME Prescriptions: Oseltamivir SUSP 75 MG dose* [Tamiflu SUSP 75 MG dose*] 75 mg PO BID #10 oral.syrin Patient Education Materials: Influenza (ED) Referrals: Ronaldo Joseph MD [Primary Care Provider] - Additional Instructions: Please take medication as prescribed. FOLLOW UP WITH YOUR PRIMARY CARE PROVIDER WITHIN 2-3 DAYS. RETURN TO THE ED FOR ANY WORSENING OR NEW SYMPTOMS. - Billing Disposition and Condition Condition: STABLE Disposition: Home - Attestation Statements Document Initiated by Ricardo: Yes Documenting Scribe: Bharti Griggs Provider For Whom Harleyibjulio is Documenting (Include Credential): Dr. Donavon Scruggs MD Scribe Attestation: I, Bharti Griggs, scribed for Dr. Donavon Scruggs MD on 12/01/18 at 1517. Scribe Documentation Reviewed: Yes Provider Attestation: The documentation as recorded by the Bharti ramirez accurately reflects the service I personally performed and the decisions made by me, Dr. Donavon Scruggs MD Status of Scribe Document: Ready
[2018-12-01 13:27] LABS: Influenza A Molecular POSITIVE (Negative)
[2018-12-01 14:28] LABS: ABS Basophils 0 10^3/ul (0-0.2); ABS Eosinophils 0.1 10^3/ul (0-0.6); ABS Lymphocytes 1.6 10^3/ul (1.0-4.8); ABS Monocytes 0.8 10^3/ul (0-0.8); ABS Neutrophils 5.5 10^3/ul (1.5-7.7); ABS Nucleated RBC 0 10^3/ul; Eosinophil % 0.7 %; Hematocrit 37 % (33-41); Hemoglobin 12.4 g/dL (12.0-16.0); Lymphocyte % 19.9 %; Mean Corpuscular HGB Conc 33 g/dL (31-36); Mean Corpuscular Hemoglobin 26 pg (27-31); Mean Corpuscular Volume 79 fL (80-97); Mean Platelet Volume 6.9 fL (7.4-10.4); Nucleated Red Blood Cells % 0; Platelet Count 226 10^3/uL (150-450); Red Blood Count 4.73 10^6 /uL (3.70-4.87); Red Cell Distribution Width 16 % (10.5-15); White Blood Count 7.9 10^3/uL (3.5-10.8)
[2018-12-01 14:42] LABS: Urine Appearance Cloudy; Urine Bacteria Absent (Absent); Urine Bilirubin Negative (Negative); Urine Blood 1+ (Negative); Urine Color Yellow; Urine Glucose Negative (Negative); Urine Ketones Negative (Negative); Urine Nitrite Negative (Negative); Urine Protein Negative (Negative); Urine Red Blood Cell 1+(3-5/hpf) (Absent); Urine Specific Gravity 1.011 (1.010-1.030); Urine Squamous Epithelial Cell Present (Absent); Urine Urobilinogen Negative (Negative); Urine White Blood Cell Trace(0-5/hpf) (Absent)
[2018-12-01 14:52] LABS: ALT 22 U/L (7-52); AST 18 U/L (13-39); Albumin/Globulin Ratio 1.3 (1-3); Alkaline Phosphatase 75 U/L (34-104); Anion Gap 10 mmol/L (2-11); BUN/Creatinine Ratio 8.9 (8-20); Blood Urea Nitrogen 7 mg/dL (6-24); C Reactive Protein 94.83 mg/L (<8.01); CO2 Carbon Dioxide 20 mmol/L (22-32); Calcium 8.7 mg/dL (8.6-10.3); Chloride 106 mmol/L (101-111); Creatine Kinase 62 U/L (10-223); EGFR African American 91.1 (>60); EGFR Non-African American 75.3 (>60); Glucose 129 mg/dL (70-100); Magnesium 1.6 mg/dL (1.9-2.7); Potassium 3.7 mmol/L (3.5-5.0); Sodium 136 mmol/L (135-145)
[2018-12-01 14:55] LABS: Barbiturates Urine Screen None Detected (None Detect); Benzodiazepine Urine Screen None Detected (None Detect); Urine Cannabinoids Screen None Detected (None Detect)
[2018-12-01] MEDS ORDERED: Magnesium Oxide TAB* 400 MG PO ONE (15:01)
[2018-12-01 15:07] LABS: Alcohol < 10 mg/dL (<10)
[2018-12-01 15:21] LABS: TSH (Thyroid Stimulating Horm) 0.28 mcIU/mL (0.34-5.60)
[2018-12-01] MEDS ORDERED: Oseltamivir CAP* 75 MG CAP ONE (15:34)
[2018-12-01 16:04] VITALS: BP 139/71
[2018-12-01] MEDS ORDERED: Oseltamivir SUSP 75 MG dose* 75 MG/12.5 ML ORAL.SYRIN PO SCH (21:00)
== END 2018-12-01 16:04 | disposition home or self-care (01) ==
LOC: ED 12:52
DX: J11.1 Influenza due to unidentified influenza virus with other respiratory manifestations (principal); R05 Cough; D64.9 Anemia, unspecified; Z86.14 Personal history of Methicillin resistant Staphylococcus aureus infection; R06.02 Shortness of breath
CPT/HCPCS: 36415; 70450; 71046; 80053; 80307; 80320; 81003; 81015; 82550; 83605; 83735; 84443; 84484; 85025; 86140; 87086; 93005; 99283; A9270-GY; G0480

== ENCOUNTER 2019-01-23 14:15 | Emergency (ER) | payer MEDICARE, MEDICAID ==
--- NOTE | 2019-01-23 15:30 | ED ---
Psychiatric Complaint - HPI Summary HPI Summary: Pt is a 58 y/o F presenting to the ED brought in for "acting differently." The pt states one of her daughters was concerned that she was acting differently, and contacted their motorcycle repairer who advised her to go to the ED. She lives alone. She denies myalgia, CP, SOB, fever, chills, cough, feeling anxious, or feeling depressed. She does not believe she is acting differently. - History Of Current Complaint Chief Complaint: EDGeneral Time Seen by Provider: 01/23/19 15:20 Accompanied By: alone Hx Obtained From: Patient Onset/Duration: Other - pt denies any symptoms Severity Currently: None Aggravating Factor(s): Nothing Alleviating Factor(s): Nothing Associated Signs And Symptoms: Positive: Negative Has Suicidal: Denies: Thoughts Has Homicidal: Denies: Thoughts - Allergies/Home Medications Allergies/Adverse Reactions: Allergies Allergy/AdvReac Type Severity Reaction Status Date / Time olanzapine [From Zyprexa] Allergy Intermediate See Comment Verified 06/05/18 17: 35 bee venom protein (honey bee) Allergy Swelling Verified 06/05/18 17:35 kiwi Allergy Swelling Verified 06/05/18 17:35 Of Face,Lips,& Throat bee stings Allergy Severe Hives Uncoded 06/05/18 17:35 KIWI Allergy Mild SCRATCHY Uncoded 06/05/18 17:35 THROAT, RUNNY NOSE Home Medications: Home Medications Ferrous Sulfate TAB* 325 mg PO DAILY 01/23/19 [History Confirmed 01/23/19] Venlafaxine ER (NF) [Effexor ER (NF)] 150 mg PO DAILY 01/23/19 [History Confirmed 01/23/19] Venlafaxine EXT RELEASE CAP* [Effexor Xr CAP*] 75 mg PO DAILY 01/23/19 [History Confirmed 01/23/19] PMH/Surg Hx/FS Hx/Imm Hx Previously Healthy: Yes Endocrine/Hematology History: Reports: Hx Anemia - taking iron tablets Denies: Hx Anticoagulant Therapy, Hx Blood Disorders, Hx Blood Transfusions, Hx Diabetes, Hx Thyroid Disease, Hx Unexplained Bleeding Cardiovascular History: Denies: Hx Aneurysm, Hx Atrial Fibrillation, Hx Hypertension, Hx Myocardial Infarction, Hx Pacemaker/ICD, Other Cardiovascular Problems/Disorders Respiratory History: Reports: Hx Asthma, Hx Sleep Apnea Denies: Hx Chronic Obstructive Pulmonary Disease (COPD), Other Respiratory Problems/Disorders GI History: Denies: Other GI Disorders History: Reports: Other Problems/Disorders - spotting on occasion; UTI Denies: Hx Renal Disease Musculoskeletal History: Reports: Hx Arthritis - Bilateral Knees, Other Musculoskeletal History - Bilateral total knee replacements Sensory History: Reports: Hx Contacts or Glasses - Glasses Denies: Hx Legally Blind, Hx Deafness, Hx Hearing Aid Opthamlomology History: Reports: Hx Contacts or Glasses - Glasses Denies: Hx Legally Blind Neurological History: Reports: Hx Seizures Denies: Hx Dementia, Other Neuro Impairments/Disorders Psychiatric History: Reports: Hx Anxiety - history of, none recent per pt, Hx Depression - ON MEDICATION FOR, Hx Inpatient Treatment, Hx Community Mental Health Tx, Hx Bipolar Disorder, Hx Suicide Attempt - OD and Cut wrists Denies: Hx Eating Disorder, Hx Panic Disorder, Hx of Violent Episodes Against Others, Hx Substance Abuse - Cancer History Hx Chemotherapy: No Hx Radiation Therapy: No - Surgical History Surgery Procedure, Year, and Place: NONE Hx Anesthesia Reactions: No Infectious Disease History: No Infectious Disease History: Reports: Hx of Known/Suspected MRSA - Per pt-Right lower anterior leg dx-2015, History Other Infectious Disease - Scabies Denies: Hx Clostridium Difficile, Hx Hepatitis, Hx Human Immunodeficiency Virus (HIV), Traveled Outside the [place] in Last 30 Days - Family History Known Family History: Positive: Other - schizophrenia, bipolar disorder, depression, alcohol abuse, breast CA Negative: Renal Disease Family History: Father during his sleep, unsure if it was a heart attack. - Social History Lives: Alone Alcohol Use: None Hx Substance Use: No Substance Use Type: Reports: None Substance Use Comment - Amount & Last Used: tried 2-3 times Hx Tobacco Use: No Smoking Status (MU): Never Smoked Tobacco Type: Cigarettes Amount Used/How Often: 1 ppd for 10 years Have You Smoked in the Last Year: No Review of Systems Negative: Fever, Chills Negative: Chest Pain Negative: Shortness Of Breath, Cough Negative: Myalgia Negative: Anxious, Depressed All Other Systems Reviewed And Are Negative: Yes Physical Exam - Summary Physical Exam Summary: VITAL SIGNS: Reviewed. GENERAL: Patient is a well-developed and nourished female who is lying comfortable in the stretcher. Patient is not in any acute respiratory distress. HEAD AND FACE: No signs of trauma. No ecchymosis, hematomas or skull depressions. No sinus tenderness. EYES: PERRLA, EOMI x 2, No injected conjunctiva, no nystagmus. EARS: Hearing grossly intact. Ear canals and tympanic membranes are within normal limits. MOUTH: Oropharynx within normal limits. NECK: Supple, trachea is midline, no adenopathy, no JVD, no carotid bruit, no c- spine tenderness, neck with full ROM. CHEST: Symmetric, no tenderness at palpation LUNGS: Clear to auscultation bilaterally. No wheezing or crackles. CVS: Regular rate and rhythm, S1 and S2 present, no murmurs or gallops appreciated. ABDOMEN: Soft, non-tender. No signs of distention. No rebound no guarding, and no masses palpated. Bowel sounds are normal. EXTREMITIES: FROM in all major joints, no edema, no cyanosis or clubbing. NEURO: Alert and oriented x 3. No acute neurological deficits. Speech is normal and follows commands. SKIN: Dry and warm Triage Information Reviewed: Yes Vital Signs On Initial Exam: Initial Vitals Temp Pulse Resp BP Pulse Ox 97.6 F 103 18 138/87 94 01/23/19 14:23 01/23/19 14:23 01/23/19 14:23 01/23/19 14:23 01/23/19 14:23 Vital Signs Reviewed: Yes Diagnostics - Vital Signs Vital Signs Temp Pulse Resp BP Pulse Ox 01/23/19 14:23 97.6 F 103 18 138/87 94 - Laboratory Result Diagrams: 01/23/19 16:18 01/23/19 16:18 Lab Statement: Any lab studies that have been ordered have been reviewed, and results considered in the medical decision making process. - EKG 1944 Cardiac Rate: NL EKG Rhythm: Sinus Rhythm ST Segment: Normal Ectopy: None Summary of EKG Findings: EKG at 1944 shows NSR at 89bpm with no STEMI. Re-Evaluation - Re-Evaluation 1st re-eval Re-Evaluation Time: 15:38 Change: Unchanged Comment: Haseeb RN, spoke to the pt's daughter who informed me that per the pts daughter, the pt has hx of bipolar disorder and states that everyone (daughters , other family, motorcycle repairer) is aware that when she gets like this, she is at the start of another manic phase. Like this means short tempered and somewhat delusional thinking that her son is going to meet her at [employer] so she stays there as much as she can. She is supposedly usually very mild mannered but is presently very tense and short tempered. She has been hospitalized for this in the past, and the family is worried about her since she lives alone. MHE ordered. Course/Dx - Course Assessment/Plan: Blood work w/o a significant abnormality. She is medically cleared. She is awaiting for a MHE. Patient is hemodynamically stable and A+O x 3. - Differential Dx/Clinical Impression Provider Diagnosis: Mood disorder Discharge - Sign-Out/Discharge Documenting (check all that apply): Patient Departure Patient Received Moderate/Deep Sedation with Procedure: No - Discharge Plan Condition: Stable Disposition: HOME Patient Education Materials: Mood Disorders (ED) Referrals: Ronaldo Joseph MD [Primary Care Provider] - - Billing Disposition and Condition Condition: STABLE Disposition: Home - Attestation Statements Document Initiated by Scribe: Yes Documenting Scribe: Eva Sarmiento Provider For Whom Ricardo is Documenting (Include Credential): Donavon Scruggs MD. Scribe Attestation: IEva, oumared for Donavon Scruggs MD. on 01/23/19 at 2057. Scribe Documentation Reviewed: Yes Provider Attestation: The documentation as recorded by the scribe, Eva Sarmiento accurately reflects the service I personally performed and the decisions made by me, Donavon Scruggs MD. Status of Scribe Document: Viewed
[2019-01-23 16:28] LABS: ABS Eosinophils 0.1 10^3/ul (0-0.6); ABS Lymphocytes 2.3 10^3/ul (1.0-4.8); ABS Monocytes 0.7 10^3/ul (0-0.8); ABS Neutrophils 6.7 10^3/ul (1.5-7.7); Eosinophil % 0.7 %; Hematocrit 40 % (35-47); Hemoglobin 13.2 g/dL (12.0-16.0); Lymphocyte % 23.7 %; Mean Corpuscular HGB Conc 33 g/dL (31-36); Mean Corpuscular Hemoglobin 27 pg (27-31); Mean Corpuscular Volume 81 fL (80-97); Mean Platelet Volume 6.6 fL (7.4-10.4); Platelet Count 368 10^3/uL (150-450); Red Cell Distribution Width 16 % (10.5-15); White Blood Count 9.8 10^3/uL (3.5-10.8)
[2019-01-23 16:46] LABS: ALT 30 U/L (7-52); AST 18 U/L (13-39); Albumin 4.6 g/dL (3.2-5.2); Albumin/Globulin Ratio 1.4 (1-3); Alkaline Phosphatase 80 U/L (34-104); Anion Gap 9 mmol/L (2-11); BUN/Creatinine Ratio 12.9 (8-20); Blood Urea Nitrogen 12 mg/dL (6-24); CO2 Carbon Dioxide 23 mmol/L (22-32); Chloride 106 mmol/L (101-111); EGFR African American 75.5 (>60); EGFR Non-African American 62.4 (>60); Globulin 3.3 g/dL (2-4); Glucose 121 mg/dL (70-100); Potassium 3.7 mmol/L (3.5-5.0); Sodium 138 mmol/L (135-145); Total Protein 7.9 g/dL (6.4-8.9)
[2019-01-23 17:02] LABS: Alcohol < 10 mg/dL (<10); Salicylate < 2.50 mg/dL (<30)
[2019-01-23 17:07] LABS: Acetaminophen < 15 mcg/mL
[2019-01-23 17:16] LABS: TSH (Thyroid Stimulating Horm) 0.96 mcIU/mL (0.34-5.60)
[2019-01-23 20:16] LABS: Urine Appearance Clear; Urine Bilirubin Negative (Negative); Urine Blood Negative (Negative); Urine Color Yellow; Urine Glucose Negative (Negative); Urine Ketones Negative (Negative); Urine Nitrite Negative (Negative); Urine Protein Negative (Negative); Urine Specific Gravity 1.008 (1.010-1.030); Urine Urobilinogen Negative (Negative)
[2019-01-23 20:31] LABS: Urine Benzodiazepine Screen None Detected (None Detect); Urine Opiates Screen None Detected (None Detect)
[2019-01-23 21:16] VITALS: BP 138/76
== END 2019-01-23 21:15 | disposition home or self-care (01) ==
LOC: ED 14:15
DX: F39 Unspecified mood [affective] disorder (principal); R94.31 Abnormal electrocardiogram [ECG] [EKG]; D64.9 Anemia, unspecified; J45.909 Unspecified asthma, uncomplicated; Z88.8 Allergy status to other drugs, medicaments and biological substances; Z79.899 Other long term (current) drug therapy; Z91.5 Personal history of self-harm; Z87.891 Personal history of nicotine dependence
CPT/HCPCS: 36415; 80053; 80307; 80320; 80329; 81003; 84443; 85025; 93005; 99284; G0480

== ENCOUNTER 2019-01-25 00:25 | Emergency (ER) | payer MEDICARE, MEDICAID ==
--- NOTE | 2019-01-25 00:58 | ED ---
Complex/Multi-Sys Presentation - HPI Summary HPI Summary: A 58 y/o female brought in by [facility] ambulance presents to [facility] with a chief complaint of having her "face feel distorted" after waking up today. She claims that she did not see her face in the mirror but she still called an ambulance. She also reports that she had non-radiating chest pain at 21:00 yesterday, and she fell asleep at 22:00 yesterday. She is currently symptoms free. She does not work and "lives at home all day". She is able to walk around on her own, and uses buses for transportation. She is a nonsmoker. She denies a Hx of panic attacks. She has a Hx of bipolar disorder and takes Effexor. She came to the ED yesterday because her daughters reportedly said that she was acting strange. 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 Negative: Fever - Allergies/Home Medications Allergies/Adverse Reactions: Allergies Allergy/AdvReac Type Severity Reaction Status Date / Time olanzapine [From Zyprexa] Allergy Intermediate See Comment Verified 01/25/19 00: 33 bee venom protein (honey bee) Allergy Swelling Verified 01/25/19 00:33 kiwi Allergy Swelling Verified 01/25/19 00:33 Of Face,Lips,& Throat bee stings Allergy Severe Hives Uncoded 06/05/18 17:35 KIWI Allergy Mild SCRATCHY Uncoded 06/05/18 17:35 THROAT, RUNNY NOSE PMH/Surg Hx/FS Hx/Imm Hx Endocrine/Hematology History: Reports: Hx Anemia - taking iron tablets Denies: Hx Anticoagulant Therapy, Hx Blood Disorders, Hx Blood Transfusions, Hx Diabetes, Hx Thyroid Disease, Hx Unexplained Bleeding Cardiovascular History: Denies: Hx Aneurysm, Hx Atrial Fibrillation, Hx Hypertension, Hx Myocardial Infarction, Hx Pacemaker/ICD, Other Cardiovascular Problems/Disorders Respiratory History: Reports: Hx Asthma, Hx Sleep Apnea Denies: Hx Chronic Obstructive Pulmonary Disease (COPD), Other Respiratory Problems/Disorders GI History: Denies: Other GI Disorders History: Reports: Other Problems/Disorders - spotting on occasion; UTI Denies: Hx Renal Disease Musculoskeletal History: Reports: Hx Arthritis - Bilateral Knees, Other Musculoskeletal History - Bilateral total knee replacements Sensory History: Reports: Hx Contacts or Glasses - Glasses Denies: Hx Legally Blind, Hx Deafness, Hx Hearing Aid Opthamlomology History: Reports: Hx Contacts or Glasses - Glasses Denies: Hx Legally Blind Neurological History: Reports: Hx Seizures Denies: Hx Dementia, Other Neuro Impairments/Disorders Psychiatric History: Reports: Hx Anxiety - history of, none recent per pt, Hx Depression - ON MEDICATION FOR, Hx Inpatient Treatment, Hx Community Mental Health Tx, Hx Bipolar Disorder, Hx Suicide Attempt - OD and Cut wrists Denies: Hx Eating Disorder, Hx Panic Disorder, Hx of Violent Episodes Against Others, Hx Substance Abuse - Cancer History Hx Chemotherapy: No Hx Radiation Therapy: No - Surgical History Surgery Procedure, Year, and Place: NONE Hx Anesthesia Reactions: No Infectious Disease History: Yes Infectious Disease History: Reports: Hx of Known/Suspected MRSA - Per pt-Right lower anterior leg dx-2015, History Other Infectious Disease - Scabies Denies: Hx Clostridium Difficile, Hx Hepatitis, Hx Human Immunodeficiency Virus (HIV), Traveled Outside the [place] in Last 30 Days - Family History Known Family History: Positive: Other - schizophrenia, bipolar disorder, depression, alcohol abuse, breast CA Negative: Renal Disease Family History: Father during his sleep, unsure if it was a heart attack. 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 GENERAL: Patient is a well-developed and nourished FEMALE who is lying comfortable in the stretcher. Patient is not in any acute respiratory distress. HEAD AND FACE: No signs of trauma. No ecchymosis, hematomas or skull depressions. No sinus tenderness. EYES: PERRLA, EOMI x 2, No injected conjunctiva, no nystagmus. EARS: Hearing grossly intact. Ear canals and tympanic membranes are within normal limits. MOUTH: Oropharynx within normal limits. NECK: Supple, trachea is midline, no adenopathy, no JVD, no carotid bruit, no c- spine tenderness, neck with full ROM CHEST: Symmetric, no tenderness at palpation LUNGS: Clear to auscultation bilaterally. No wheezing or crackles. CVS: Regular rate and rhythm, S1 and S2 present, no murmurs or gallops appreciated. ABDOMEN: Soft, non-tender. No signs of distention. No rebound no guarding, and no masses palpated. Bowel sounds are normal. EXTREMITIES: FROM in all major joints, no edema, no cyanosis or clubbing. NEURO: Alert and oriented x 3. No acute neurological deficits. Speech is normal and follows commands. SKIN: Dry and warm Triage Information Reviewed: Yes Vital Signs On Initial Exam: Initial Vitals Temp Pulse Resp BP Pulse Ox 99.7 F 101 14 112/72 95 01/25/19 00:29 01/25/19 00:29 01/25/19 00:29 01/25/19 00:29 01/25/19 00:29 Vital Signs Reviewed: Yes Diagnostics - Vital Signs Vital Signs Temp Pulse Resp BP Pulse Ox 01/25/19 00:33 102 20 112/72 94 01/25/19 00:30 108 96 01/25/19 00:29 99.7 F 101 14 112/72 95 - Laboratory Result Diagrams: 01/25/19 01:24 01/25/19 01:24 Lab Statement: Any lab studies that have been ordered have been reviewed, and results considered in the medical decision making process. - Radiology CXR Radiology Interpretation Completed By: ED Physician Summary of Radiographic Findings: No acute process. Pending official imaging report. - EKG 01:01 Cardiac Rate: NL - 97 bpm EKG Rhythm: Sinus Rhythm Summary of EKG Findings: NSR at 97 bpm, Normal axis. Normal interval. No ischemic changes. Complex Multi-Symp Course/Dx Course Of Treatment: A 58 y/o female brought in by [facility] ambulance presents to [facility] with a chief complaint of having her "face feel distorted" after waking up today. She claims that she did not see her face in the mirror but she still called an ambulance. She also reports that she had non-radiating chest pain at 21:00 yesterday, and she fell asleep at 22:00 yesterday. The physical exam was unremarkable. EKG showed NSR at 97 bpm, Normal axis. Normal interval. No ischemic changes. CXR showed no acute process. Bloodwork and chemistries obtained and are WNL. The patient will be discharged home and follow up with her PCP. The patient is agreeable with this plan. - Diagnoses Provider Diagnoses: Atypical chest pain, Anxiety Discharge - Sign-Out/Discharge Documenting (check all that apply): Patient Departure - DC Patient Received Moderate/Deep Sedation with Procedure: No - Discharge Plan Condition: Stable Disposition: HOME Patient Education Materials: Chest Pain (DC), Anxiety (ED) Referrals: Ronaldo Joseph MD [Primary Care Provider] - (2-3 days) Additional Instructions: PLEASE RETURN TO THE ED IMMEDIATELY FOR WORSENING OR CONCERNING SYMPTOMS. - Billing Disposition and Condition Condition: STABLE Disposition: Home - Attestation Statements Document Initiated by Scribe: Yes Documenting Scribe: Jose Lind Provider For Whom Ricardo is Documenting (Include Credential): Sarah Ruelas MD Scribe Attestation: I, Jose Lind, scribed for Sarah Ruelas MD on 01/25/19 at 0601. Scribe Documentation Reviewed: Yes Provider Attestation: The documentation as recorded by the Jose ramirez accurately reflects the service I personally performed and the decisions made by me, Sarah Ruelas MD Status of Scribe Document: Viewed
[2019-01-25 01:31] LABS: ABS Eosinophils 0.1 10^3/ul (0-0.6); ABS Lymphocytes 2.3 10^3/ul (1.0-4.8); ABS Monocytes 0.7 10^3/ul (0-0.8); ABS Neutrophils 5.7 10^3/ul (1.5-7.7); Eosinophil % 1.2 %; Hematocrit 36 % (35-47); Hemoglobin 11.9 g/dL (12.0-16.0); Lymphocyte % 26.1 %; Mean Corpuscular HGB Conc 33 g/dL (31-36); Mean Corpuscular Hemoglobin 26 pg (27-31); Mean Corpuscular Volume 81 fL (80-97); Mean Platelet Volume 6.8 fL (7.4-10.4); Nucleated Red Blood Cells % 0.1; Platelet Count 281 10^3/uL (150-450); Red Blood Count 4.49 10^6 /uL (3.70-4.87); Red Cell Distribution Width 15 % (10.5-15); White Blood Count 8.8 10^3/uL (3.5-10.8)
[2019-01-25 01:48] LABS: Activated Partial Thrombo Time 26.7 seconds (26.0-36.3); INR 1.12 (0.82-1.09)
[2019-01-25 01:55] LABS: Albumin/Globulin Ratio 1.4 (1-3); BUN/Creatinine Ratio 21.9 (8-20); Calcium 9.2 mg/dL (8.6-10.3); EGFR African American 99.8 (>60); EGFR Non-African American 82.5 (>60); Globulin 2.8 g/dL (2-4); Potassium 3.2 mmol/L (3.5-5.0); Total Bilirubin 0.4 mg/dL (0.2-1.0); Total Protein 6.8 g/dL (6.4-8.9)
[2019-01-25] MEDS ORDERED: Potassium Chlor TAB* 20 MEQ TAB.ER PO ONE (02:00)
[2019-01-25 02:36] VITALS: BP 105/55
== END 2019-01-25 02:35 | disposition home or self-care (01) ==
LOC: ED 00:25
DX: R07.89 Other chest pain (principal); F41.9 Anxiety disorder, unspecified; Z88.8 Allergy status to other drugs, medicaments and biological substances; D64.9 Anemia, unspecified; J45.909 Unspecified asthma, uncomplicated; R56.9 Unspecified convulsions; F32.9 Major depressive disorder, single episode, unspecified; Z87.891 Personal history of nicotine dependence; Z79.899 Other long term (current) drug therapy
CPT/HCPCS: 36415; 71045; 80053; 84484; 85025; 85610; 85730; 93005; 99282; A9270-GY

== ENCOUNTER 2019-01-29 10:12 | Inpatient (IN) | payer MEDICARE, MEDICAID ==
[2019-01-29 11:12] LABS: ABS Lymphocytes 1.6 10^3/ul (1.0-4.8); ABS Monocytes 0.5 10^3/ul (0-0.8); ABS Neutrophils 4.3 10^3/ul (1.5-7.7); Eosinophil % 0.5 %; Hematocrit 40 % (35-47); Hemoglobin 12.9 g/dL (12.0-16.0); Lymphocyte % 25.2 %; Mean Corpuscular HGB Conc 32 g/dL (31-36); Mean Corpuscular Hemoglobin 26 pg (27-31); Mean Corpuscular Volume 81 fL (80-97); Mean Platelet Volume 6.7 fL (7.4-10.4); Nucleated Red Blood Cells % 0.1; Platelet Count 325 10^3/uL (150-450); Red Cell Distribution Width 16 % (10.5-15); White Blood Count 6.5 10^3/uL (3.5-10.8)
[2019-01-29 11:33] LABS: HCG Pregnancy < 0.60 mIU/mL
[2019-01-29 11:35] LABS: ALT 30 U/L (7-52); AST 16 U/L (13-39); Albumin 4.2 g/dL (3.2-5.2); Albumin/Globulin Ratio 1.4 (1-3); Alkaline Phosphatase 71 U/L (34-104); Anion Gap 7 mmol/L (2-11); BUN/Creatinine Ratio 11.3 (8-20); Blood Urea Nitrogen 8 mg/dL (6-24); CO2 Carbon Dioxide 24 mmol/L (22-32); Calcium 9.5 mg/dL (8.6-10.3); Chloride 109 mmol/L (101-111); EGFR Non-African American 85.2 (>60); Glucose 113 mg/dL (70-100); Potassium 3.7 mmol/L (3.5-5.0); Sodium 140 mmol/L (135-145); Total Protein 7.2 g/dL (6.4-8.9)
[2019-01-29 11:55] LABS: Alcohol < 10 mg/dL (<10); Salicylate < 2.50 mg/dL (<30)
[2019-01-29 12:10] LABS: TSH (Thyroid Stimulating Horm) 0.67 mcIU/mL (0.34-5.60)
[2019-01-29 12:11] LABS: Acetaminophen < 15 mcg/mL
--- NOTE | 2019-01-29 13:12 | ED ---
Complex/Multi-Sys Presentation - HPI Summary HPI Summary: The patient is a 58 year old F presenting to [facility] with a chief complaint of dizziness since last night 01/28/19. Patient reports the condition worsened this morning after waking up. Patient states the room was spinning and she was near syncope this morning 01/29/19 but would no get out of bed due to fatigue. She also denied experiencing ear ringing. Patient also reports low back pain when sitting up but denies abdominal pain. Patient also reported being dehydrated but also reports eating and drinking normally. Per triage patient had c/o vaginal bleeding and urinary incontinence but these conditions were not mentioned. Symptoms aggravated by nothing. Symptoms alleviated by nothing. - History Of Current Complaint Chief Complaint: EDDizziness Time Seen by Provider: 01/29/19 10:33 Hx Obtained From: Patient Onset/Duration: Sudden Onset, Lasting Hours - Since last night, Worse Since - this morning Timing: Constant, Hours Severity Currently: None Location: Pain At: - low back pain when sitting up Aggravating Factor(s): Nothing Alleviating Factor(s): Nothing Associated Signs And Symptoms: Positive: Dizziness, Syncope - NEAR, Back Pain - low back pain when sitting up, Other - Positive: dehydrated. Negative: Abdominal Pain - Allergies/Home Medications Allergies/Adverse Reactions: Allergies Allergy/AdvReac Type Severity Reaction Status Date / Time olanzapine [From Zyprexa] Allergy Intermediate See Comment Verified 01/25/19 00: 33 bee venom protein (honey bee) Allergy Swelling Verified 01/25/19 00:33 kiwi Allergy Swelling Verified 01/25/19 00:33 Of Face,Lips,& Throat Home Medications: Home Medications Venlafaxine EXT RELEASE CAP* [Effexor Xr CAP*] 75 mg PO DAILY 01/29/19 [History Confirmed 01/29/19] PMH/Surg Hx/FS Hx/Imm Hx Endocrine/Hematology History: Reports: Hx Anemia - taking iron tablets Denies: Hx Anticoagulant Therapy, Hx Blood Disorders, Hx Blood Transfusions, Hx Diabetes, Hx Thyroid Disease, Hx Unexplained Bleeding Cardiovascular History: Denies: Hx Aneurysm, Hx Atrial Fibrillation, Hx Hypertension, Hx Myocardial Infarction, Hx Pacemaker/ICD, Other Cardiovascular Problems/Disorders Respiratory History: Reports: Hx Asthma, Hx Sleep Apnea Denies: Hx Chronic Obstructive Pulmonary Disease (COPD), Other Respiratory Problems/Disorders GI History: Denies: Other GI Disorders History: Reports: Other Problems/Disorders - spotting on occasion; UTI Denies: Hx Renal Disease Musculoskeletal History: Reports: Hx Arthritis - Bilateral Knees, Other Musculoskeletal History - Bilateral total knee replacements Sensory History: Reports: Hx Contacts or Glasses - Glasses Denies: Hx Legally Blind, Hx Deafness, Hx Hearing Aid Opthamlomology History: Reports: Hx Contacts or Glasses - Glasses Denies: Hx Legally Blind Neurological History: Reports: Hx Seizures Denies: Hx Dementia, Other Neuro Impairments/Disorders Psychiatric History: Reports: Hx Anxiety - history of, none recent per pt, Hx Depression - ON MEDICATION FOR, Hx Inpatient Treatment, Hx Community Mental Health Tx, Hx Bipolar Disorder, Hx Suicide Attempt - OD and Cut wrists Denies: Hx Eating Disorder, Hx Panic Disorder, Hx of Violent Episodes Against Others, Hx Substance Abuse - Cancer History Hx Chemotherapy: No Hx Radiation Therapy: No - Surgical History Surgery Procedure, Year, and Place: NONE Hx Anesthesia Reactions: No Infectious Disease History: No Infectious Disease History: Reports: Hx of Known/Suspected MRSA - Per pt-Right lower anterior leg dx-2015, History Other Infectious Disease - Scabies Denies: Hx Clostridium Difficile, Hx Hepatitis, Hx Human Immunodeficiency Virus (HIV), Traveled Outside the [place] in Last 30 Days - Family History Known Family History: Positive: Other - schizophrenia, bipolar disorder, depression, alcohol abuse, breast CA Negative: Renal Disease Family History: Father during his sleep, unsure if it was a heart attack. - Social History Alcohol Use: None Hx Substance Use: No Substance Use Type: Reports: None Substance Use Comment - Amount & Last Used: tried 2-3 times Hx Tobacco Use: No Smoking Status (MU): Former Smoker Type: Cigarettes Amount Used/How Often: 1 ppd for 10 years Have You Smoked in the Last Year: No Review of Systems Positive: Fatigue, Other - Feels dehydrated ENT: Other - POSITIVE - EAR RINGING Negative: Abdominal Pain Musculoskeletal: Other - positive - back pain when sitting up Neurological: Other - Dizziness Positive: Syncope - Near syncopal episode All Other Systems Reviewed And Are Negative: Yes Physical Exam - Summary Physical Exam Summary: Appearance: The patient is well-nourished in no acute distress and in no acute pain. Skin: The skin is warm and dry and skin color reflects adequate perfusion. HEENT: The head is normocephalic and atraumatic. The pupils are equal and reactive. The conjunctivae are clear and without drainage. Nares are patent and without drainage. Mouth is dry and the throat is without erythema and exudate. The external ears are intact. The ear canals are patent and without drainage. The tympanic membranes are intact. Neck: The neck is supple with full range of motion and non-tender. There are no carotid bruits. There is no neck vein distension. Respiratory: Chest is non-tender. Lungs are clear to auscultation and breath sounds are symmetrical and equal. Cardiovascular: Heart is regular rate and rhythm. There is a soft systolic injection murmur and a mechanical valve closing sound. There is no peripheral edema and pulses are symmetrical and equal. Abdomen: The abdomen is soft and non-tender. There are normal bowel sounds heard in all four quadrants and there is no organomegaly palpated. Musculoskeletal: There is no back tenderness noted. Extremities are non-tender with full range of motion. There is good capillary refill. There is no peripheral edema or calf tenderness elicited. Neurological: Patient is alert and oriented to person, place and time. The patient has symmetrical motor strength in all four extremities. Cranial nerves are grossly intact. Deep tendon reflexes are symmetrical and equal in all four extremities. GCS 15 Psychiatric: The patient has an appropriate affect and does not exhibit any anxiety or depression Triage Information Reviewed: Yes Vital Signs On Initial Exam: Initial Vitals Temp Pulse Resp BP Pulse Ox 97.7 F 97 20 142/80 96 01/29/19 10:20 01/29/19 10:20 01/29/19 10:20 01/29/19 10:20 01/29/19 10:20 Vital Signs Reviewed: Yes Diagnostics - Vital Signs Vital Signs Temp Pulse Resp BP Pulse Ox 01/29/19 12:45 99.2 F 83 16 148/76 96 01/29/19 11:43 85 131/60 96 01/29/19 11:00 92 93 01/29/19 10:58 89 129/98 95 01/29/19 10:28 95 142/80 96 01/29/19 10:27 86 96 01/29/19 10:20 97.7 F 97 20 142/80 96 - Laboratory Lab Results: Lab Results 01/29/19 01/29/19 Range/Units 10:59 10:59 WBC 6.5 (3.5-10.8) 10^3/uL RBC 4.90 H (3.70-4.87) 10^6 /uL Hgb 12.9 (12.0-16.0) g/dL Hct 40 (35-47) % MCV 81 (80-97) fL MCH 26 L (27-31) pg MCHC 32 (31-36) g/dL RDW 16 H (10.5-15) % Plt Count 325 (150-450) 10^3/uL MPV 6.7 L (7.4-10.4) fL Neut % (Auto) 66.0 % Lymph % (Auto) 25.2 % [place] % (Auto) 7.6 % Eos % (Auto) 0.5 % Baso % (Auto) 0.7 % Absolute Neuts (auto) 4.3 (1.5-7.7) 10^3/ul Absolute Lymphs (auto) 1.6 (1.0-4.8) 10^3/ul Absolute Monos (auto) 0.5 (0-0.8) 10^3/ul Absolute Eos (auto) 0.0 (0-0.6) 10^3/ul Absolute Basos (auto) 0.0 (0-0.2) 10^3/ul Absolute Nucleated RBC 0.0 10^3/ul Nucleated RBC % 0.1 Sodium 140 (135-145) mmol/L Potassium 3.7 (3.5-5.0) mmol/L Chloride 109 (101-111) mmol/L Carbon Dioxide 24 (22-32) mmol/L Anion Gap 7 (2-11) mmol/L BUN 8 (6-24) mg/dL Creatinine 0.71 (0.51-0.95) mg/dL Est GFR ( Amer) 103.0 (>60) Est GFR (Non-Af Amer) 85.2 (>60) BUN/Creatinine Ratio 11.3 (8-20) Glucose 113 H (70-100) mg/dL Calcium 9.5 (8.6-10.3) mg/dL Total Bilirubin 0.60 (0.2-1.0) mg/dL AST 16 (13-39) U/L ALT 30 (7-52) U/L Alkaline Phosphatase 71 (34-104) U/L Total Protein 7.2 (6.4-8.9) g/dL Albumin 4.2 (3.2-5.2) g/dL Globulin 3.0 (2-4) g/dL Albumin/Globulin Ratio 1.4 (1-3) TSH 0.67 (0.34-5.60) mcIU/mL Beta HCG, Quant < 0.60 mIU/mL Salicylates < 2.50 (<30) mg/dL Acetaminophen < 15 mcg/mL Serum Alcohol < 10 (<10) mg/dL Result Diagrams: 01/29/19 10:59 01/29/19 10:59 Lab Statement: Any lab studies that have been ordered have been reviewed, and results considered in the medical decision making process. Re-Evaluation - Re-Evaluation First Eval Re-Evaluation Time: 11:29 Comment: Patient's daughter requested a mental health eval. Daughter reported patient may be having a bipolar episode. Second Eval Re-Evaluation Time: 12:46 Comment: Patient was moved to annex room 21. Pending mental health evaluation. Complex Multi-Symp Course/Dx - Diagnoses Provider Diagnoses: Schizoaffective disorder - Physician Notifications Discussed Care Of Patient With: Rafita George Time Discussed With Above Provider: 15:12 Instructed by Provider To: Admit As Inpatient - Per Dr. George, psychiatrist, patient will be admitted to [facility] on a voluntary admission. Discharge - Sign-Out/Discharge Documenting (check all that apply): Patient Departure - admitted All imaging exams completed and their final reports reviewed: No Studies Patient Received Moderate/Deep Sedation with Procedure: No - Discharge Plan Condition: Good Disposition: PSYCHIATRIC FACILITY-[facility] - Billing Disposition and Condition Condition: GOOD Disposition: Psychiatric Facility [facility] - Attestation Statements Document Initiated by Scribe: Yes Documenting Scribe: Rochelle Zhang Provider For Whom Scribe is Documenting (Include Credential): Terry Merida MD Scribe Attestation: Arias Cook and Sherman Braun, scribed for Terry Merida MD on 01/29/19 at 1619. Scribe Documentation Reviewed: Yes Provider Attestation: The documentation as recorded by the ashley, Rochelle Zhang accurately reflects the service I personally performed and the decisions made by me, Terry Merida MD Status of Scribe Document: Viewed
[2019-01-29] MEDS ORDERED: Ibuprofen TAB* 800 MG PO PRN (14:31)
[2019-01-29] MEDS: risperiDONE TAB* 3 MG PO SCH (20:46)
[2019-01-30] MEDS: hydrOXYzine HCL TAB* 50 MG PO PRN ×2 (01:40→23:01)
[2019-01-30 08:24] LABS: HDL Cholesterol 40.6 mg/dL
[2019-01-30] MEDS: Multivitamins/Minerals TAB PO SCH (10:03)
[2019-01-30] MEDS: Ferrous Sulfate TAB* 325 MG PO SCH (10:03)
[2019-01-30] MEDS: Cholecalciferol TAB* 1000 UNITS PO SCH (10:03)
[2019-01-30] MEDS: Venlafaxine EXT RELEASE CAP* 75 MG PO SCH ×2 (10:05)
[2019-01-30] MEDS: risperiDONE TAB* 3 MG PO SCH (20:29)
--- NOTE | 2019-01-31 03:30 | HP ---
HISTORY AND PHYSICAL: DATE OF ADMISSION: 01/29/19 PROVIDER: Brittanie Alexis NP, in Psychiatry. SUPERVISING PHYSICIAN: Rafita George MD * (DICTATED BY BRITTANIE ALEXIS NP) JUSTIFICATION FOR ADMISSION: The patient is need of 24-hour supervision and care secondary to gross disorganization. CHIEF COMPLAINT: "I take all my meds. 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 Una is disorganized. She, upon interview, denies having auditory hallucinations, but does have speech latencies. She is in emotional control and has somatic complaints that may or may not be delusional; for example, she states that she has urinary urgency and incontinence. At her home, she did in fact urinate in bed stating it was too difficult for her to get out of bed. At this time, however, she is not having any incontinence problems, and although she moves slowly due to having 2 knee replacements, she is doing well, toileting herself. She also complains of having heavy menstrual bleeding. At this time, during the interview, she is not experiencing that problem; although later in the day, she was found to have a stain on the back of her dress and some kind of colored discharge on the pad. It is likely that this needs to be followed up with her banquet attendant. Nevertheless, the heavy menstrual bleeding complaint does appear to be delusional. She has 3 daughters and a son. Her daughters stated that she is delusional and at times states she cannot walk or do anything for herself, but in fact she can. She states that she is unsafe and cannot help herself. She apparently urinates on chairs and in bed at home and that she cannot transfer herself. Una also states that there is a man at [employer], who she is in love with, who was with children, whose name is Gregory. Una states that Gregory is in love with her and they are going to be . Una stated to me and to Niki Jarquin LCSW, that Gregory is aware of this amorous interest and he also would like to get to her. This apparently is not based in reality. At this point, Una has some bizarre statements, but upon interview is very different than she was in her presentation in the emergency department when she was labile, taking to herself, and behaving in a bizarre fashion. At this time , she seems to be quite in control of herself and expressing her desire to comply with requests very clearly. PAST PSYCHIATRIC HISTORY: Una currently works with the [facility] team and can name each person on that team. She is currently taking Abilify Maintena 400 mg q.4 weeks and Effexor XR 150 mg. These are the medications she reports taking. Her medication reconciliation list includes Risperdal 3 mg at bedtime. Una states she takes all of her meds, but only listed the two. We are restarting the Risperdal at bedtime here, 3 mg. She has a history of many prior psychiatric hospitalizations. She has been manic in the past. She was diagnosed with bipolar 1 disorder and has had psychotic functioning and symptoms. She has had care at [facility] and has a prior history of suicidal behavior. PAST MEDICAL HISTORY: Includes two knee replacements, one in approximately 2013 , one in approximately 2016. She also has a current history of urinary incontinence as well as shoulder pain and uterine polyps. ALLERGIES: There are no known drug allergies. FAMILY HISTORY: There is a reported history of depression in her son and one daughter. Bipolar disorder present in her biological mother. SOCIAL HISTORY: Substance abuse is denied, it is not consistent with her jace and mandaeism beliefs to use substances including tobacco or alcohol. Una was for 34 years, has been for more than 15. She has 3 adult daughters, 1 son, and 7 grandchildren. She did work at [employer], but has not worked in a few years. 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 She receives SSI and SSD on the basis of psychiatric disability. REVIEW OF SYMPTOMS: Una reports feeling well and alert. She denies shortness of breath, heat or cold intolerance, chest pain, or abdominal pain. She denies neurological symptoms. She denies fevers or changes in weight. PHYSICAL EXAMINATION PHYSICAL EXAM SUMMARY: The patient is well-nourished and obese and is in no acute distress or acute pain. VITAL SIGNS: On 01/30/19 at 0736, temperature was 96.9, pulse 106, respirations 16, O2 sat on room air 100, blood pressure 139/92. HEENT: The head is normocephalic and atraumatic. The pupils are equal and reactive. The conjunctivae are clear and without drainage. Nares are patent and without drainage. Mouth is dry and the throat is without erythema or exudate. The external ears are intact. The ear canals are patent and without drainage. The tympanic membranes are intact. NECK: The neck is supple with full range of motion and nontender. There are no carotid bruits. There is no neck vein distention. RESPIRATORY: Chest is nontender. Lungs are clear to auscultation and breath sounds are symmetrical and equal. CARDIOVASCULAR: Heart is regular rate and rhythm. There is soft systolic ejection murmur and the mechanical valve closing sound. There is no peripheral edema and pulses are symmetrical and equal. ABDOMEN: The abdomen is soft and nontender. There are normal bowel sounds heard in all 4 quadrants and there is no organomegaly palpated. MUSCULOSKELETAL: There is no back tenderness noted. Extremities are nontender with full range of motion. There is good capillary refill. There is no peripheral edema or calf tenderness elicited. NEUROLOGIC: The patient is alert and oriented to person, place, and time and situation. The patient has symmetrical motor strength in all 4 extremities. Cranial nerves are grossly intact. Deep tendon reflexes are symmetrical and equal in all 4 extremities. GCS is 15. SKIN: The skin is warm and dry and skin color reflects adequate perfusion. LABORATORY DATA: Most data are within normal limits. Exceptions include RBC high at 4.9, MCH low at 26, RDW high at 16, MPV low at 6.7. Glucose was high on 01/29/19 at 1059 at 113. Hemoglobin A1c is high at 6.0. Triglycerides are 86, cholesterol is 154, LDL cholesterol 96, HDL cholesterol 40.6. TSH is 0.67. Beta hCG is less than 0.6. There was no urine screen that will be accounted for shortly. Toxicology screen for blood was free from salicylates, acetaminophen, or serum alcohol. Her HIV 1 and 2 antibodies are nonreactive. MENTAL STATUS EXAMINATION: Una is a 58-year-old woman who is 5 foot 7 inches and weighs 280 pounds. She has shoulder length jones hair and wears glasses. She walks slowly, but without a cane. She is calm and cooperative. Her grooming is adequate. Her speech is soft and slow. Volume is normal. She is euthymic. She is present with a full range of affect. Her speech is slow. Her thought processes appear to be low. She does have delusions regarding the romantic interactions of herself and a man named Gregory at [employer] as well as possible delusions regarding urinary incontinence and menstrual flow. She is not homicidal or suicidal. She is not having visual hallucinations. She may be having auditory hallucinations as she was in the emergency room, although she denied them during our interview on the unit. Her insight is fair. Her judgement is fair. She is alert and oriented x4. DIAGNOSIS: Schizoaffective disorder, bipolar type. IMPRESSION: Una is a 58-year-old woman who comes to the hospital, brought due to disorganized behavior and inability to care for herself in the assessment of her daughters. PLAN: The patient is admitted to the adult behavior health unit and placed on a 15- minute checks for her own safety. She is encouraged to participate in supportive milieu, individual and group therapies. The estimated length of stay is 3 to 7 days. We will be titrating medications to efficacy and monitoring for mood and thought content. Discharge planing will include family involvement and outpatient providers. BRITTANIE ALEXIS NP [id number]/[facility] #: [id number] KVNG
[2019-01-31] MEDS: Al Hydrox/Mg Hydrox/Simet LIQ* 30 ML UDC PO PRN (05:56)
[2019-01-31] MEDS: Multivitamins/Minerals TAB PO SCH (09:36)
[2019-01-31] MEDS: Venlafaxine EXT RELEASE CAP* 75 MG PO SCH ×2 (09:36→09:37)
[2019-01-31] MEDS: Cholecalciferol TAB* 1000 UNITS PO SCH (09:36)
[2019-01-31] MEDS: Ferrous Sulfate TAB* 325 MG PO SCH (09:37)
--- NOTE | 2019-01-31 16:16 | PN ---
Subjective - Subjective Date of Service: 01/31/19 Service Type: 24295 Hosp care 15 min low complexity Subjective: Una is found drawing in the milieu today. She has remarked to others on staff that her menses is irregular and bothersome to her. When I spoke to her about it , she seemed to be unbothered and was happy to have maxi pads to use. She was quite happy about the style of pad provided. She was apparently incontinent of stool today. Una is somewhat disorganized in her behavior and the subject of her drawing (a swirling series of birds and mountains) was odd but artistic. Her mood is good, she is prepared to stay for as long as is necessary, and she requires continued monitoring. Objective - General Observations Appearance: Disheveled Appears Stated Age: Yes Stature: Overweight Posture: WNL Eye Contact: Average Behavior/Activity: Slowed - Interaction Observations Attitude Towards Examiner: Cooperative Stated Mood: Euthymic Affect: Blunted Speech Pattern/Tone: Clear, Quiet Volume Thought Process: Coherent Perception: WNL Thought Content: WNL Hallucination Type: Denies Delusion Type: Denies, Erotic, Sabianism - Cognitive Function Orientation: A&O x 4 Level of Consciousness: Awake, Alert, Appropriate Cognition: WNL Estimated Intelligence: Normal Insight: Difficulty Acknowledging Presence of Psyciatric Problems Judgment Within Normal Limits: No Ability to Make Reasonable Decisions: Moderately Impaired - Medication Compliance Cooperative with Inpatient Medication Regimen: Yes - Group Participation Participates in Group Activities: Yes Assessment - Assessment Merits Inpatient Hospitalization: For Immediate Safety Clinical Impression: Una is a 58-year-old white woman with a history of schizoaffective disorder bipolar type who comes to the hospital by ambulance with concerns from her daughters that she is not taking care of herself adequately, including urinary in continence and lack of personal hygiene. Plan - Plan Treatment Plan: Name: UNA BONNER Birthdate: 1960 [id number] It is unclear what medications Una is adherent to in the outpatient setting despite her working with the ACT team. She will take her oral medications and her physical needs will be attended to with a focus on her hygiene. Continued Medication Management: Continue Outpt Medication Medications: Current Medications Acetaminophen (Tylenol Tab*) 650 mg PO Q4H PRN PRN Reason: for pain; or Temp >101 F Al Hydrox/Mg Hydrox/Simethicone (Maalox Plus*) 30 ml PO Q4H PRN PRN Reason: INDIGESTION Last Admin: 01/31/19 05:56 Dose: 30 ml Cholecalciferol (Vitamin D Tab*) 1,000 units PO DAILY REPLACED BY [facility] Last Admin: 01/31/19 09:36 Dose: 1,000 units Ferrous Sulfate (Ferrous Sulfate Tab*) 325 mg PO DAILY REPLACED BY [facility] Last Admin: 01/31/19 09:37 Dose: 325 mg Hydroxyzine HCl (Atarax Tab*) 50 mg PO Q6H PRN PRN Reason: ANXIETY Last Admin: 01/30/19 23:01 Dose: 50 mg Ibuprofen (Motrin Tab*) 800 mg PO Q6H PRN PRN Reason: FEVER Last Admin: 01/30/19 21:22 Dose: 800 mg Multivitamins/Minerals (Theragran/Minerals Tab*) 1 tab PO DAILY REPLACED BY [facility] Last Admin: 01/31/19 09:36 Dose: 1 tab Risperidone (Risperdal*) 3 mg PO BEDTIME REPLACED BY [facility] Last Admin: 01/30/19 20:29 Dose: 3 mg Venlafaxine HCl (Effexor Xr Cap*) 150 mg PO DAILY REPLACED BY [facility] Last Admin: 01/31/19 09:36 Dose: 150 mg Venlafaxine HCl (Effexor Xr Cap*) 75 mg PO DAILY REPLACED BY [facility] Last Admin: 01/31/19 09:37 Dose: 75 mg - Discharge Plan Discharge Plan: Outpatient Follow Up
[2019-01-31] MEDS: risperiDONE TAB* 3 MG PO SCH (21:31)
[2019-01-31] MEDS: Acetaminophen TAB* 325 MG PO PRN (21:31)
[2019-02-01] MEDS: Multivitamins/Minerals TAB PO SCH (10:13)
[2019-02-01] MEDS: Ferrous Sulfate TAB* 325 MG PO SCH (10:13)
[2019-02-01] MEDS: Venlafaxine EXT RELEASE CAP* 75 MG PO SCH ×2 (10:13)
[2019-02-01] MEDS: Cholecalciferol TAB* 1000 UNITS PO SCH (10:14)
--- NOTE | 2019-02-01 13:02 | PN ---
Subjective - Subjective Date of Service: 02/01/19 Service Type: 19968 Hosp care 15 min low complexity Subjective: Una is found lying in bed. She states she feels weak and unwell and embarrassed. Her clothes either don't fit or are dirty and she's having trouble with her pants falling down and can't find adult absorbant undergarments that fit. Her menstrual cycle remains problematic and unpredictable. Contacting her CLAIMS SERVICE ADJUSTOR provider may be in order. Objective - General Observations Appearance: Disheveled Appears Stated Age: Yes Stature: Overweight Posture: WNL Eye Contact: Average Behavior/Activity: Slowed - Interaction Observations Attitude Towards Examiner: Cooperative, Anxious, Confused Stated Mood: Dysphoric Affect: Blunted Speech Pattern/Tone: Clear Thought Process: Coherent Perception: WNL Thought Content: Preoccupation/Ruminations, Obsessional Hallucination Type: None Delusion Type: Erotic - Cognitive Function Orientation: A&O x 4 Level of Consciousness: Awake, Alert, Appropriate Cognition: Impaired Ability to Abstract Estimated Intelligence: Normal Insight: Difficulty Acknowledging Presence of Psyciatric Problems Judgment Within Normal Limits: No Ability to Make Reasonable Decisions: Moderately Impaired - Medication Compliance Cooperative with Inpatient Medication Regimen: Yes - Group Participation Participates in Group Activities: Partial Assessment - Assessment Merits Inpatient Hospitalization: For Immediate Safety Clinical Impression: Una is a 58-year-old white woman with a history of schizoaffective disorder bipolar type who comes to the hospital by ambulance with concerns from her daughters that she is not taking care of herself adequately, including urinary in continence and lack of personal hygiene. Plan - Plan Treatment Plan: Name: UNA BONNER Birthdate: 1960 [id number] It is unclear what medications Una is adherent to in the outpatient setting despite her working with the ACT team. She will take her oral medications and her physical needs will be attended to with a focus on her hygiene. 02/01/19 Una will stay the weekend, but ACT must be involved to determine direction of care more clearly. Physical needs will continue to be attended to. Continued Medication Management: Continue Outpt Medication Medications: Current Medications Acetaminophen (Tylenol Tab*) 650 mg PO Q4H PRN PRN Reason: for pain; or Temp >101 F Last Admin: 01/31/19 21:31 Dose: 650 mg Al Hydrox/Mg Hydrox/Simethicone (Maalox Plus*) 30 ml PO Q4H PRN PRN Reason: INDIGESTION Last Admin: 01/31/19 05:56 Dose: 30 ml Cholecalciferol (Vitamin D Tab*) 1,000 units PO DAILY [facility] Last Admin: 02/01/19 10:14 Dose: 1,000 units Ferrous Sulfate (Ferrous Sulfate Tab*) 325 mg PO DAILY [facility] Last Admin: 02/01/19 10:13 Dose: 325 mg Hydroxyzine HCl (Atarax Tab*) 50 mg PO Q6H PRN PRN Reason: ANXIETY Last Admin: 01/30/19 23:01 Dose: 50 mg Ibuprofen (Motrin Tab*) 800 mg PO Q6H PRN PRN Reason: FEVER Last Admin: 01/30/19 21:22 Dose: 800 mg Multivitamins/Minerals (Theragran/Minerals Tab*) 1 tab PO DAILY [facility] Last Admin: 02/01/19 10:13 Dose: 1 tab Risperidone (Risperdal*) 3 mg PO BEDTIME [facility] Last Admin: 01/31/19 21:31 Dose: 3 mg Venlafaxine HCl (Effexor Xr Cap*) 150 mg PO DAILY [facility] Last Admin: 02/01/19 10:13 Dose: 150 mg Venlafaxine HCl (Effexor Xr Cap*) 75 mg PO DAILY [facility] Last Admin: 02/01/19 10:13 Dose: 75 mg - Discharge Plan Discharge Plan: Outpatient Follow Up
[2019-02-01] MEDS: risperiDONE TAB* 3 MG PO SCH (20:52)
[2019-02-01] MEDS: hydrOXYzine HCL TAB* 50 MG PO PRN (23:58)
[2019-02-02] MEDS: Multivitamins/Minerals TAB PO SCH (10:17)
[2019-02-02] MEDS: Cholecalciferol TAB* 1000 UNITS PO SCH (10:17)
[2019-02-02] MEDS: Venlafaxine EXT RELEASE CAP* 75 MG PO SCH ×2 (10:17)
[2019-02-02] MEDS: Ferrous Sulfate TAB* 325 MG PO SCH (10:18)
--- NOTE | 2019-02-02 11:27 | PN ---
BSU: Group Therapy Note - Service Type Service Type: 61662 Group Psychotherapy - Cognitive Behavioral Group Psychotherapy: Una presented as disheveled in CBT programming this morning, interacting actively in discussion. Her comments were at times topical and relevant, while on other occasions she impressed as disorganized in thought. She also was lingering at the exit door earlier, and required redirection from staring at the exit door. She accepted and attended programming.
--- NOTE | 2019-02-02 16:47 | PN ---
Subjective - Subjective Date of Service: 02/02/19 Service Type: 48072 Hosp care 25 min moderate complexity Subjective: Una is not feeling well or confident today. She has tried to elope and can often be found staring out of the window of the unit into the hallway between the doors. She is disheveled and requires consistent reminders to behave in a socially appropriate manner. Despite seeming to be in control of herself the first day, she has clearly decompensated to a level that mirrors the presentation she had in the emergency department. She was converted to a 2PC status and will be referred to [facility]. In addition clozapine will be started tonight at 25 mg BID. Objective - General Observations Appearance: Disheveled Appears Stated Age: Yes Stature: Overweight Posture: WNL Eye Contact: Average Behavior/Activity: Peculiar, Agitated - Interaction Observations Attitude Towards Examiner: Cooperative, Confused Stated Mood: Elevated, Irritable, Silly Affect: Labile, Incongruent Speech Pattern/Tone: Clear Thought Process: Incoherent, Disorganized Perception: WNL Thought Content: WNL Hallucination Type: Denies Delusion Type: Erotic, Gnosticism - Cognitive Function Orientation: A&O x 4 Level of Consciousness: Awake, Alert, Appropriate Cognition: Impaired Cognition, Impaired Ability to Abstract Estimated Intelligence: Normal Insight: Difficulty Acknowledging Presence of Psyciatric Problems Judgment Within Normal Limits: No Ability to Make Reasonable Decisions: Serverely Impaired - Medication Compliance Cooperative with Inpatient Medication Regimen: Yes - Group Participation Participates in Group Activities: Partial Assessment - Assessment Merits Inpatient Hospitalization: For Immediate Safety Clinical Impression: Una is a 58-year-old white woman with a history of schizoaffective disorder bipolar type who comes to the hospital by ambulance with concerns from her daughters that she is not taking care of herself adequately, including urinary in continence and lack of personal hygiene, as well as delusions and bizarre behavior. Plan - Plan Treatment Plan: Name: UNA BONNER Birthdate: 1960 [id number] It is unclear what medications Una is adherent to in the outpatient setting despite her working with the ACT team. She will take her oral medications and her physical needs will be attended to with a focus on her hygiene. 02/01/19 Una will stay the weekend, but ACT must be involved to determine direction of care more clearly. Physical needs will continue to be attended to. 02/02/19 Una has continued to decompensate so steps are being taken to send her to [facility] and start her on clozapine. Continued Medication Management: Different Medication Medications: Current Medications Acetaminophen (Tylenol Tab*) 650 mg PO Q4H PRN PRN Reason: for pain; or Temp >101 F Last Admin: 01/31/19 21:31 Dose: 650 mg Al Hydrox/Mg Hydrox/Simethicone (Maalox Plus*) 30 ml PO Q4H PRN PRN Reason: INDIGESTION Last Admin: 01/31/19 05:56 Dose: 30 ml Cholecalciferol (Vitamin D Tab*) 1,000 units PO DAILY [facility] Last Admin: 02/02/19 10:17 Dose: 1,000 units Clozapine (Clozapine Tab*) 25 mg PO BID [facility] Ferrous Sulfate (Ferrous Sulfate Tab*) 325 mg PO DAILY [facility] Last Admin: 02/02/19 10:18 Dose: 325 mg Hydroxyzine HCl (Atarax Tab*) 50 mg PO Q6H PRN PRN Reason: ANXIETY Last Admin: 02/01/19 23:58 Dose: 50 mg Ibuprofen (Motrin Tab*) 800 mg PO Q6H PRN PRN Reason: FEVER Last Admin: 01/30/19 21:22 Dose: 800 mg Lorazepam (Ativan Tab(*)) 2 mg PO Q6H PRN PRN Reason: Anxiety/agitation Multivitamins/Minerals (Theragran/Minerals Tab*) 1 tab PO DAILY [facility] Last Admin: 02/02/19 10:17 Dose: 1 tab Risperidone (Risperdal-M Tab *) 2 mg PO Q6H PRN; Protocol PRN Reason: Agitation/anxiety/psychosis Venlafaxine HCl (Effexor Xr Cap*) 150 mg PO DAILY [facility] Last Admin: 02/02/19 10:17 Dose: 150 mg Venlafaxine HCl (Effexor Xr Cap*) 75 mg PO DAILY [facility] Last Admin: 02/02/19 10:17 Dose: 75 mg
[2019-02-02] MEDS: CloZAPine TAB* 25 MG TAB PO SCH (21:55)
[2019-02-03] MEDS: CloZAPine TAB* 25 MG TAB PO SCH ×2 (09:49→21:20)
[2019-02-03] MEDS: Cholecalciferol TAB* 1000 UNITS PO SCH (09:49)
[2019-02-03] MEDS: Multivitamins/Minerals TAB PO SCH (09:50)
[2019-02-03] MEDS: Ferrous Sulfate TAB* 325 MG PO SCH (09:50)
[2019-02-03] MEDS: Venlafaxine EXT RELEASE CAP* 75 MG PO SCH ×2 (09:50→09:51)
--- NOTE | 2019-02-03 22:40 | PN ---
Subjective - Subjective Date of Service: 02/03/19 Service Type: 70079 Hosp care 15 min low complexity Subjective: Una took a few minutes to gather herself to sit down for our interview. She had no complaints, reported there was nothing I could do for her with a doctor' s order. She denied AH/VH/PI/SI/HI. She reported her sleeping pattern is " like a baby", clarifying that babies will sometimes sleep through the night, and other times will wake themselves by soiling themselves. She denied incontinence or drooling excessively after starting Clozaril. She was found before asking her to join me late this evening, sitting with other patients and socializing. Objective - General Observations Appearance: Disheveled, Unkempt Appears Stated Age: Yes Stature: Overweight Posture: Slumped Eye Contact: Average Eye Contact Comment: though a bit intense, or at least overly fixed, at times Behavior/Activity: Slowed, Peculiar - Interaction Observations Attitude Towards Examiner: Cooperative Affect: Blunted Speech Pattern/Tone: Clear, Appropriate, Normal Volume Thought Process: Disorganized Hallucination Type: None - Cognitive Function Level of Consciousness: Awake, Alert, Appropriate Cognition: Impaired Cognition, Impaired Ability to Abstract Ability to Make Reasonable Decisions: Serverely Impaired - Medication Compliance Cooperative with Inpatient Medication Regimen: Yes - Group Participation Participates in Group Activities: Partial Assessment - Assessment Merits Inpatient Hospitalization: For Immediate Safety, For Stabilization, For Discharge Planning, Pending Safe DC Plan Clinical Impression: Una is a 58-year-old white woman with a history of schizoaffective disorder bipolar type who comes to the hospital by ambulance with concerns from her daughters that she is not taking care of herself adequately, including urinary in continence and lack of personal hygiene, as well as delusions and bizarre behavior. Plan - Plan Treatment Plan: Name: UNA BONNER Birthdate: 1960 [id number] It is unclear what medications Una is adherent to in the outpatient setting despite her working with the ACT team. She will take her oral medications and her physical needs will be attended to with a focus on her hygiene. 02/01/19 Una will stay the weekend, but ACT must be involved to determine direction of care more clearly. Physical needs will continue to be attended to. 02/02/19 Una has continued to decompensate so steps are being taken to send her to [facility] and start her on clozapine. Medications: Current Medications Acetaminophen (Tylenol Tab*) 650 mg PO Q4H PRN PRN Reason: for pain; or Temp >101 F Last Admin: 01/31/19 21:31 Dose: 650 mg Al Hydrox/Mg Hydrox/Simethicone (Maalox Plus*) 30 ml PO Q4H PRN PRN Reason: INDIGESTION Last Admin: 01/31/19 05:56 Dose: 30 ml Cholecalciferol (Vitamin D Tab*) 1,000 units PO DAILY [facility] Last Admin: 02/03/19 09:49 Dose: 1,000 units Clozapine (Clozapine Tab*) 25 mg PO BID [facility] Last Admin: 02/03/19 21:20 Dose: 25 mg Ferrous Sulfate (Ferrous Sulfate Tab*) 325 mg PO DAILY [facility] Last Admin: 02/03/19 09:50 Dose: 325 mg Hydroxyzine HCl (Atarax Tab*) 50 mg PO Q6H PRN PRN Reason: ANXIETY Last Admin: 02/01/19 23:58 Dose: 50 mg Ibuprofen (Motrin Tab*) 800 mg PO Q6H PRN PRN Reason: FEVER Last Admin: 01/30/19 21:22 Dose: 800 mg Lorazepam (Ativan Tab(*)) 2 mg PO Q6H PRN PRN Reason: Anxiety/agitation Multivitamins/Minerals (Theragran/Minerals Tab*) 1 tab PO DAILY [facility] Last Admin: 02/03/19 09:50 Dose: 1 tab Risperidone (Risperdal-M Tab *) 2 mg PO Q6H PRN; Protocol PRN Reason: Agitation/anxiety/psychosis Venlafaxine HCl (Effexor Xr Cap*) 150 mg PO DAILY [facility] Last Admin: 02/03/19 09:50 Dose: 150 mg Venlafaxine HCl (Effexor Xr Cap*) 75 mg PO DAILY [facility] Last Admin: 02/03/19 09:51 Dose: 75 mg - Discharge Plan Discharge Plan: Consider Longer Term Tx
[2019-02-04] MEDS: risperiDONE-M * 1 MG TAB.ORADIS PO PRN (03:30)
[2019-02-04] MEDS: LORazepam TAB(*) 1 MG PO PRN ×2 (03:30→19:25)
[2019-02-04] MEDS: Venlafaxine EXT RELEASE CAP* 75 MG PO SCH ×2 (12:16→12:18)
[2019-02-04] MEDS: Cholecalciferol TAB* 1000 UNITS PO SCH (12:18)
[2019-02-04] MEDS: CloZAPine TAB* 25 MG TAB PO SCH ×2 (12:18→21:12)
[2019-02-04] MEDS: Ferrous Sulfate TAB* 325 MG PO SCH (12:20)
[2019-02-04] MEDS: Multivitamins/Minerals TAB PO SCH (12:20)
[2019-02-04] MEDS: Acetaminophen TAB* 325 MG PO PRN (19:25)
[2019-02-04] MEDS: Ibuprofen TAB* 800 MG PO PRN (21:12)
[2019-02-04 21:14] LABS: Hematocrit 34 % (35-47); Hemoglobin 10.9 g/dL (12.0-16.0); Mean Corpuscular HGB Conc 32 g/dL (31-36); Mean Corpuscular Hemoglobin 27 pg (27-31); Mean Corpuscular Volume 82 fL (80-97); Mean Platelet Volume 6.6 fL (7.4-10.4); Platelet Count 274 10^3/uL (150-450); Red Blood Count 4.13 10^6 /uL (3.70-4.87); Red Cell Distribution Width 16 % (10.5-15); White Blood Count 8.2 10^3/uL (3.5-10.8)
[2019-02-04 21:22] LABS: Activated Partial Thrombo Time 26.2 seconds (26.0-36.3); INR 1.11 (0.82-1.09)
[2019-02-04 21:32] LABS: Albumin 3.4 g/dL (3.2-5.2); Albumin/Globulin Ratio 1.4 (1-3); BUN/Creatinine Ratio 18.8 (8-20); Calcium 8.7 mg/dL (8.6-10.3); EGFR African American 89.8 (>60); EGFR Non-African American 74.2 (>60); Globulin 2.4 g/dL (2-4); Magnesium 1.6 mg/dL (1.9-2.7); Phosphorus 3.1 mg/dL (2.5-5.0); Potassium 3.7 mmol/L (3.5-5.0); Total Bilirubin 0.3 mg/dL (0.2-1.0); Total Protein 5.8 g/dL (6.4-8.9)
--- NOTE | 2019-02-04 23:01 | CONS ---
CONSULTATION REPORT: DATE OF CONSULT: 02/04/19 REQUESTING PROVIDER: Dr. Colon. REASON FOR CONSULT: Abnormal uterine bleeding. Abnormal vaginal bleeding. HISTORY OF PRESENT ILLNESS: Una Ward is a 58-year-old white female with past medical history of schizoaffective disorder, obstructive sleep apnea, asthma, anemia and obesity, who presented to the [facility] voluntarily due to disorganization and auditory hallucinations. She has been treated at the behavioral health services unit. It appears that the patient is psychologically continuing to decompensate during her stay here despite changes in her medication. Today, the patient passed a large clot approximately half a cup in volume per vagina. As reported by nursing, the patient has had vaginal spotting since arriving to [facility] on 01/29/19, but since yesterday evening has been soaking through pads. Therefore, hospitalist medicine was asked to evaluate the patient. The patient reports she has been having irregular vaginal bleeding for the last year and she has been evaluated for this by her [employer] Dr. Saenz. There was a period of time between 2013 and 2015, where she had no periods and since that time began to have vaginal bleeding again. For the last year, she has been having bleeding for several days at a time and then several days without bleeding and back and forth as such. Whenever she is experiencing vaginal bleeding, it is associated with abdominal cramping to a pain scale of 5/10. Today, she is having abdominal cramping. She endorses lightheadedness today as well. She otherwise denies nausea, vomiting, diarrhea, chest pain, difficulty breathing, visual changes, urination difficulty. PAST MEDICAL HISTORY: 1. Schizoaffective disorder. 2. Obstructive sleep apnea, on CPAP. 3. Asthma, controlled. 4. Anemia. 5. Obesity. The patient denies history of thyroid disorder. PAST SURGICAL HISTORY: 1. Bilateral total knee amputation. 2. Left knee meniscus repair. HOME MEDICATIONS: 1. Venlafaxine 75 mg p.o. daily. 2. Venlafaxine 150 mg p.o. daily. 3. Risperdal 30 mg p.o. at bedtime. 4. Multivitamin 1 tab p.o. daily. 5. Ibuprofen 800 mg p.o. q.6 hours p.r.n. 6. Ferrous sulfate 325 mg p.o. daily. 7. Vitamin D 1000 units p.o. daily. 8. Abilify Maintena 40 mg IM injection q.28 days. ALLERGIES: Reaction of itchy throat to ZYPREXA. Reaction of swelling to HONEY BEE. Reaction of angioedema to KIWI. FAMILY HISTORY: Mother of pancreatic cancer at age 61. Her father of unknown cause to patient at age 72. The patient is unsure of his medical history. Her maternal grandmother had breast cancer. The patient denies family history of gynecological cancers. SOCIAL HISTORY: The patient is and has 4 children. She currently does not work. She denies alcohol use, tobacco use and drug use. REVIEW OF SYSTEMS: An 11-point review of systems was completed and all pertinent positives and negatives are as above in the HPI. All other systems are negative. PHYSICAL EXAM: General: Obese white female, lying in hospital bed appearing in no acute distress. Head: Normocephalic, atraumatic. Eyes: PERRL. Sclerae anicteric. EOMI. ENT: Mucous membranes are moist. Neck: Without JVD. Neck is supple. Respiratory: Lungs are clear to auscultation throughout. Heart: Regular rate and rhythm without murmurs, rubs, or gallops. Abdomen: Abdomen is soft, nontender, nondistended. No masses or hepatosplenomegaly palpated. Normoactive bowel sounds x4 quadrants. Extremities: No edema, clubbing or cyanosis. Neuro: The patient is alert and oriented x3. Moves all extremities equally. Skin: No rashes or ecchymosis. DIAGNOSTIC STUDIES/LAB DATA: Hemoglobin 12.9 at admission on 01/29/19, beta hCG less than 0.60, TSH 0.67. ASSESSMENT AND PLAN: Una Ward is a 58-year-old white female with past medical history of schizoaffective disorder, obstructive sleep apnea, asthma, anemia, obesity, who has been treated on the [facility] and developed abnormal vaginal bleeding. Hospital medicine risk consulted. 1. Abnormal vaginal bleeding. Per the patient, the patient has been worked up for this in the past. I placed an order for obtaining medical records from Dr. Saenz's office. A transvaginal ultrasound has been ordered and the report is pending.. TSH was already checked at admission and is normal. The patient is not as HCG was checked at admission as well. Last Pap smear was in 2018 and was negative. It was recommended that Gynecology be consulted for further workup of this patient. CBC, CMP, magnesium, phosphorus, PT/INR and PTT are pending. I ordered orthostatic vital signs. Regarding abdominal pain control, the patient is ordered p.r.n. Tylenol and I will add p.r.n. ibuprofen as well. We will followup the pending lab results. Otherwise the gynecological services will best be suited for any further questions and for the results of the transvaginal ultrasound. 2. Obstructive sleep apnea. The patient uses a CPAP at home and it is advised that she continue to use one during her stay. 3. Anemia. This is likely an iron deficiency anemia related to chronic vaginal bleeding. Continue home ferrous sulfate. 4. Schizoaffective disorder. Management per Psychiatry. 5. Disposition: Per Psychiatry. Thank you for allowing us to participate in the care of this patient. We will follow during this admission. VIRGIL SHIPMAN [id number]/[facility] #: [id number] MTDJudd
[2019-02-05] MEDS: CloZAPine TAB* 25 MG TAB PO SCH ×2 (09:12→20:35)
[2019-02-05] MEDS: Multivitamins/Minerals TAB PO SCH (09:12)
[2019-02-05] MEDS: Venlafaxine EXT RELEASE CAP* 75 MG PO SCH ×2 (09:12)
[2019-02-05] MEDS: Cholecalciferol TAB* 1000 UNITS PO SCH (09:12)
[2019-02-05] MEDS: Ferrous Sulfate TAB* 325 MG PO SCH (09:13)
[2019-02-05 12:24] LABS: ABS Eosinophils 0.2 10^3/ul (0-0.6); ABS Lymphocytes 1.9 10^3/ul (1.0-4.8); ABS Monocytes 0.7 10^3/ul (0-0.8); ABS Neutrophils 5.6 10^3/ul (1.5-7.7); Eosinophil % 2.4 %; Lymphocyte % 22.2 %; Nucleated Red Blood Cells % 0.1
--- NOTE | 2019-02-05 14:56 | PN ---
Subjective - Subjective Date of Service: 02/05/19 Service Type: 12744 Hosp care 25 min moderate complexity Subjective: Una is struggling with psychiatric problems such as being delusional ( believing Noam Velasquez visited her last night), having latencies, and having bizarre beliefs. In addition, Una has heavy vaginal bleeding with quantities that are problematic. Many staff members have come to her aid and she is doing her best to remain clean. Contact was made with Dr. Rasmussen and then a message was left with Dr. Saenz's office requesting records. Objective - General Observations Appearance: Disheveled Appears Stated Age: Yes Stature: Overweight Posture: WNL Eye Contact: Average Behavior/Activity: Slowed, Peculiar - Interaction Observations Attitude Towards Examiner: Cooperative Stated Mood: Euthymic Affect: Blunted Speech Pattern/Tone: Clear Thought Process: Disorganized, [place] Perception: WNL Thought Content: Preoccupation/Ruminations, Grandiose Hallucination Type: Denies Delusion Type: Erotic, Grandeur, Religion - Cognitive Function Orientation: A&O x 4 Level of Consciousness: Awake, Alert, Appropriate Cognition: WNL Estimated Intelligence: Normal Insight: Difficulty Acknowledging Presence of Psyciatric Problems Judgment Within Normal Limits: No Ability to Make Reasonable Decisions: Serverely Impaired - Medication Compliance Cooperative with Inpatient Medication Regimen: Yes - Group Participation Participates in Group Activities: Yes Assessment - Assessment Merits Inpatient Hospitalization: For Immediate Safety Inpatient DSM-V Dx: F25.0 Clinical Impression: Una is a 58-year-old white woman with a history of schizoaffective disorder bipolar type who comes to the hospital by ambulance with concerns from her daughters that she is not taking care of herself adequately, including urinary in continence and lack of personal hygiene, as well as delusions and bizarre behavior. Plan - Plan Treatment Plan: Name: UNA BONNER Birthdate: 1960 [id number] It is unclear what medications Una is adherent to in the outpatient setting despite her working with the ACT team. She will take her oral medications and her physical needs will be attended to with a focus on her hygiene. 02/01/19 Una will stay the weekend, but ACT must be involved to determine direction of care more clearly. Physical needs will continue to be attended to. 02/02/19 Una has continued to decompensate so steps are being taken to send her to [facility] and start her on clozapine. Continued Medication Management: Different Medication Medications: Current Medications Acetaminophen (Tylenol Tab*) 650 mg PO Q4H PRN PRN Reason: for pain; or Temp >101 F Last Admin: 02/04/19 19:25 Dose: 650 mg Al Hydrox/Mg Hydrox/Simethicone (Maalox Plus*) 30 ml PO Q4H PRN PRN Reason: INDIGESTION Last Admin: 01/31/19 05:56 Dose: 30 ml Albuterol (Ventolin Hfa Inhaler*) 2 puff INH Q2H PRN PRN Reason: SOB/WHEEZING Cholecalciferol (Vitamin D Tab*) 1,000 units PO DAILY [facility] Last Admin: 02/05/19 09:12 Dose: 1,000 units Clozapine (Clozapine Tab*) 50 mg PO BID [facility] Ferrous Sulfate (Ferrous Sulfate Tab*) 325 mg PO DAILY [facility] Last Admin: 02/05/19 09:13 Dose: 325 mg Hydroxyzine HCl (Atarax Tab*) 50 mg PO Q6H PRN PRN Reason: ANXIETY Last Admin: 02/01/19 23:58 Dose: 50 mg Ibuprofen (Motrin Tab*) 800 mg PO Q8H PRN PRN Reason: PAIN Last Admin: 02/04/19 21:12 Dose: 800 mg Lorazepam (Ativan Tab(*)) 2 mg PO Q6H PRN PRN Reason: Anxiety/agitation Last Admin: 02/04/19 19:25 Dose: 2 mg Multivitamins/Minerals (Theragran/Minerals Tab*) 1 tab PO DAILY [facility] Last Admin: 02/05/19 09:12 Dose: 1 tab Risperidone (Risperdal-M Tab *) 2 mg PO Q6H PRN; Protocol PRN Reason: Agitation/anxiety/psychosis Last Admin: 02/04/19 03:30 Dose: 2 mg Venlafaxine HCl (Effexor Xr Cap*) 150 mg PO DAILY [facility] Last Admin: 02/05/19 09:12 Dose: 150 mg Venlafaxine HCl (Effexor Xr Cap*) 75 mg PO DAILY [facility] Last Admin: 02/05/19 09:12 Dose: 75 mg - Discharge Plan Discharge Plan: Outpatient Follow Up
[2019-02-06] MEDS: Venlafaxine EXT RELEASE CAP* 75 MG PO SCH ×2 (08:46)
[2019-02-06] MEDS: Ferrous Sulfate TAB* 325 MG PO SCH (08:46)
[2019-02-06] MEDS: CloZAPine TAB* 25 MG TAB PO SCH ×2 (08:47→21:03)
[2019-02-06] MEDS: Cholecalciferol TAB* 1000 UNITS PO SCH (08:47)
[2019-02-06] MEDS: Multivitamins/Minerals TAB PO SCH (08:47)
[2019-02-06] MEDS: medroxyPROGESTERone TAB* 10 MG PO SCH ×2 (12:52→21:06)
[2019-02-06 15:05] LABS: Hematocrit 32 % (35-47); Hemoglobin 10.7 g/dL (12.0-16.0); Mean Corpuscular HGB Conc 33 g/dL (31-36); Mean Corpuscular Hemoglobin 27 pg (27-31); Mean Corpuscular Volume 82 fL (80-97); Mean Platelet Volume 6.7 fL (7.4-10.4); Platelet Count 282 10^3/uL (150-450); Red Blood Count 3.94 10^6 /uL (3.70-4.87); Red Cell Distribution Width 16 % (10.5-15); White Blood Count 8.2 10^3/uL (3.5-10.8)
[2019-02-06] MEDS: Meclizine TAB* 12.5 MG PO SCH ×2 (15:56→21:04)
--- NOTE | 2019-02-06 19:35 | PN ---
<Brittanie Alexis - Last Filed: 02/07/19 11:25> Subjective - Subjective Date of Service: 02/06/19 Service Type: 41587 Hosp care 35 min high complexity Subjective: Consulted with Dr. Charisse Saenz's staff nurse Michelle who arranged to have records for Una sent to us. I then consulted with Dr. Reid who interpreted data from the records that were sent. The lack of medroxyprogesterone (Megace) that Una was taking could have led to the high level of bleeding that Una has been experiencing. Dr. Reid was somewhat hesitant to order Provera (another version of medroxyprogesterone) as it can have a depressant effect. Nevertheless , this is consistent with the care that Dr. Saenz was providing and Una's presentation warrants this treatment. We determined to order Provera 20 mg BID x 7 days. We will repeat the CBC and look for Hgb > 9, which it is. We will also encourage hydration, iron, and rest. Assessment - Assessment Inpatient DSM-V Dx: F25.0 Clinical Impression: Una is a 58-year-old white woman with a history of schizoaffective disorder bipolar type who comes to the hospital by ambulance with concerns from her daughters that she is not taking care of herself adequately, including urinary in continence and lack of personal hygiene, as well as delusions and bizarre behavior. Plan - Plan Treatment Plan: Name: UNA BONNER Birthdate: 1960 [id number] It is unclear what medications Una is adherent to in the outpatient setting despite her working with the ACT team. She will take her oral medications and her physical needs will be attended to with a focus on her hygiene. 02/01/19 Una will stay the weekend, but ACT must be involved to determine direction of care more clearly. Physical needs will continue to be attended to. 02/02/19 Una has continued to decompensate so steps are being taken to send her to [facility] and start her on clozapine. Medications: Current Medications Acetaminophen (Tylenol Tab*) 650 mg PO Q4H PRN PRN Reason: for pain; or Temp >101 F Last Admin: 02/04/19 19:25 Dose: 650 mg Al Hydrox/Mg Hydrox/Simethicone (Maalox Plus*) 30 ml PO Q4H PRN PRN Reason: INDIGESTION Last Admin: 01/31/19 05:56 Dose: 30 ml Albuterol (Ventolin Hfa Inhaler*) 2 puff INH Q2H PRN PRN Reason: SOB/WHEEZING Cholecalciferol (Vitamin D Tab*) 1,000 units PO DAILY [facility] Last Admin: 02/06/19 08:47 Dose: 1,000 units Clozapine (Clozapine Tab*) 50 mg PO BID [facility] Last Admin: 02/06/19 08:47 Dose: 50 mg Ferrous Sulfate (Ferrous Sulfate Tab*) 325 mg PO DAILY [facility] Last Admin: 02/06/19 08:46 Dose: 325 mg Hydroxyzine HCl (Atarax Tab*) 50 mg PO Q6H PRN PRN Reason: ANXIETY Last Admin: 02/01/19 23:58 Dose: 50 mg Ibuprofen (Motrin Tab*) 800 mg PO Q8H PRN PRN Reason: PAIN Last Admin: 02/04/19 21:12 Dose: 800 mg Lorazepam (Ativan Tab(*)) 2 mg PO Q6H PRN PRN Reason: Anxiety/agitation Last Admin: 02/04/19 19:25 Dose: 2 mg Meclizine HCl (Antivert Tab*) 25 mg PO BID [facility] Last Admin: 02/06/19 15:56 Dose: 25 mg Medroxyprogesterone Acetate (Provera Tab*) 20 mg PO BID [facility] Stop: 02/13/19 00:01 Last Admin: 02/06/19 12:52 Dose: 20 mg Multivitamins/Minerals (Theragran/Minerals Tab*) 1 tab PO DAILY [facility] Last Admin: 02/06/19 08:47 Dose: 1 tab Risperidone (Risperdal-M Tab *) 2 mg PO Q6H PRN; Protocol PRN Reason: Agitation/anxiety/psychosis Last Admin: 02/04/19 03:30 Dose: 2 mg Venlafaxine HCl (Effexor Xr Cap*) 150 mg PO DAILY [facility] Last Admin: 02/06/19 08:46 Dose: 150 mg Venlafaxine HCl (Effexor Xr Cap*) 75 mg PO DAILY [facility] Last Admin: 02/06/19 08:46 Dose: 75 mg <Prakash Potter - Last Filed: 02/07/19 11:33> Plan - Plan Treatment Plan: Name: UNA BONNER Birthdate: 1960 [id number] Medications: Current Medications Acetaminophen (Tylenol Tab*) 650 mg PO Q4H PRN PRN Reason: for pain; or Temp >101 F Last Admin: 02/04/19 19:25 Dose: 650 mg Al Hydrox/Mg Hydrox/Simethicone (Maalox Plus*) 30 ml PO Q4H PRN PRN Reason: INDIGESTION Last Admin: 01/31/19 05:56 Dose: 30 ml Albuterol (Ventolin Hfa Inhaler*) 2 puff INH Q2H PRN PRN Reason: SOB/WHEEZING Cholecalciferol (Vitamin D Tab*) 1,000 units PO DAILY [facility] Last Admin: 02/07/19 08:55 Dose: 1,000 units Clozapine (Clozapine Tab*) 50 mg PO BID [facility] Last Admin: 02/07/19 08:55 Dose: 50 mg Ferrous Sulfate (Ferrous Sulfate Tab*) 325 mg PO DAILY [facility] Last Admin: 02/07/19 08:56 Dose: 325 mg Hydroxyzine HCl (Atarax Tab*) 50 mg PO Q6H PRN PRN Reason: ANXIETY Last Admin: 02/01/19 23:58 Dose: 50 mg Ibuprofen (Motrin Tab*) 800 mg PO Q8H PRN PRN Reason: PAIN Last Admin: 02/04/19 21:12 Dose: 800 mg Lorazepam (Ativan Tab(*)) 2 mg PO Q6H PRN PRN Reason: Anxiety/agitation Last Admin: 02/04/19 19:25 Dose: 2 mg Meclizine HCl (Antivert Tab*) 25 mg PO BID [facility] Last Admin: 02/07/19 08:55 Dose: 25 mg Medroxyprogesterone Acetate (Provera Tab*) 20 mg PO BID [facility] Stop: 02/13/19 00:01 Last Admin: 02/07/19 08:56 Dose: 20 mg Multivitamins/Minerals (Theragran/Minerals Tab*) 1 tab PO DAILY [facility] Last Admin: 02/07/19 08:56 Dose: 1 tab Risperidone (Risperdal-M Tab *) 2 mg PO Q6H PRN; Protocol PRN Reason: Agitation/anxiety/psychosis Last Admin: 02/04/19 03:30 Dose: 2 mg Venlafaxine HCl (Effexor Xr Cap*) 150 mg PO DAILY [facility] Last Admin: 02/07/19 08:56 Dose: 150 mg Venlafaxine HCl (Effexor Xr Cap*) 75 mg PO DAILY [facility] Last Admin: 02/07/19 08:56 Dose: 75 mg
[2019-02-07] MEDS: CloZAPine TAB* 25 MG TAB PO SCH ×2 (08:55→22:13)
[2019-02-07] MEDS: Meclizine TAB* 12.5 MG PO SCH ×2 (08:55→22:13)
[2019-02-07] MEDS: Cholecalciferol TAB* 1000 UNITS PO SCH (08:55)
[2019-02-07] MEDS: Ferrous Sulfate TAB* 325 MG PO SCH (08:56)
[2019-02-07] MEDS: medroxyPROGESTERone TAB* 10 MG PO SCH ×2 (08:56→22:14)
[2019-02-07] MEDS: Multivitamins/Minerals TAB PO SCH (08:56)
[2019-02-07] MEDS: Venlafaxine EXT RELEASE CAP* 75 MG PO SCH ×2 (08:56)
[2019-02-07] MEDS: Albuterol HFA INHALER* 8 gm MDI INH PRN (14:07)
--- NOTE | 2019-02-07 16:03 | PN ---
[facility]: Group Therapy Note - Service Type Service Type: 39231 Group Psychotherapy - Group Participation Patient Participating in Group: Yes Level of Group Participation: Attentive, Spontaneously Participate Relatedness to Group: Other - Una participated spontaneously and spoke about on -topic but unhelpful stories.
[2019-02-07] MEDS: CMCS:Saliva Substitute (NF) 1 SPRAY BTL MT SCH ×2 (16:30→22:14)
[2019-02-07] MEDS: Furosemide TAB* 20 MG PO SCH (17:06)
[2019-02-08] MEDS: CMCS:Saliva Substitute (NF) 1 SPRAY BTL MT SCH ×4 (03:00→22:13)
[2019-02-08 07:53] LABS: Hematocrit 32 % (35-47); Hemoglobin 10.5 g/dL (12.0-16.0); Mean Corpuscular HGB Conc 33 g/dL (31-36); Mean Corpuscular Hemoglobin 27 pg (27-31); Mean Corpuscular Volume 82 fL (80-97); Mean Platelet Volume 6.4 fL (7.4-10.4); Platelet Count 294 10^3/uL (150-450); Red Blood Count 3.93 10^6 /uL (3.70-4.87); Red Cell Distribution Width 16 % (10.5-15); White Blood Count 7.1 10^3/uL (3.5-10.8)
[2019-02-08] MEDS: medroxyPROGESTERone TAB* 10 MG PO SCH ×2 (08:41→20:44)
[2019-02-08] MEDS: Venlafaxine EXT RELEASE CAP* 75 MG PO SCH ×2 (08:42→08:46)
[2019-02-08] MEDS: Meclizine TAB* 12.5 MG PO SCH ×2 (08:42→20:43)
[2019-02-08] MEDS: Multivitamins/Minerals TAB PO SCH (08:44)
[2019-02-08] MEDS: CloZAPine TAB* 25 MG TAB PO SCH ×2 (08:45→20:42)
[2019-02-08] MEDS: Cetirizine* 10 MG TAB PO SCH (08:45)
[2019-02-08] MEDS: Ferrous Sulfate TAB* 325 MG PO SCH (08:45)
[2019-02-08] MEDS: Furosemide TAB* 20 MG PO SCH ×2 (08:46→17:45)
[2019-02-08] MEDS: Cholecalciferol TAB* 1000 UNITS PO SCH (08:46)
--- NOTE | 2019-02-08 11:19 | PN ---
BSU: Group Therapy Note - Service Type Service Type: 42506 Group Psychotherapy - Cognitive Behavioral Group Therapy ( CBT):Patient was attentive and participatory in CBT programming this morning, and remained in good behavioral control. Patient expressed positive insights regarding relevant treatment interventions and goals.
[2019-02-09] MEDS: risperiDONE-M * 1 MG TAB.ORADIS PO PRN (02:15)
[2019-02-09] MEDS: LORazepam TAB(*) 1 MG PO PRN (02:15)
[2019-02-09] MEDS: CMCS:Saliva Substitute (NF) 1 SPRAY BTL MT SCH ×4 (03:00→21:45)
[2019-02-09] MEDS: Albuterol HFA INHALER* 8 gm MDI INH PRN ×2 (09:11→18:09)
[2019-02-09] MEDS: Cetirizine* 10 MG TAB PO SCH (09:12)
[2019-02-09] MEDS: Ferrous Sulfate TAB* 325 MG PO SCH (09:12)
[2019-02-09] MEDS: Furosemide TAB* 20 MG PO SCH ×2 (09:12→16:55)
[2019-02-09] MEDS: Venlafaxine EXT RELEASE CAP* 75 MG PO SCH ×2 (09:12→09:13)
[2019-02-09] MEDS: CloZAPine TAB* 25 MG TAB PO SCH ×2 (09:13→21:41)
[2019-02-09] MEDS: Cholecalciferol TAB* 1000 UNITS PO SCH (09:13)
[2019-02-09] MEDS: Meclizine TAB* 12.5 MG PO SCH ×2 (09:13→21:42)
[2019-02-09] MEDS: Multivitamins/Minerals TAB PO SCH (09:13)
[2019-02-09] MEDS: medroxyPROGESTERone TAB* 10 MG PO SCH ×2 (09:14→21:42)
--- NOTE | 2019-02-09 21:27 | PN ---
Subjective - Subjective Date of Service: 02/09/19 Service Type: 32116 Hosp care 25 min moderate complexity Subjective: Una is pleasant and interested in others. She is also delusional and at times obviously psychotic. Her behavior while generally not problematic in the hospital setting, is not near her baseline. Skylar from the ACT team met with her and was concerned about her presentation. Her daughter Tevin spoke with Niki Johnson LMSW, and indicated that Una's baseline is so significantly different from her behavior here that Tevin anticipates Una not being able to take care of herself or interact with others constructively. Objective - General Observations Appearance: Disheveled Appears Stated Age: Yes Stature: Overweight Posture: WNL Eye Contact: Average Behavior/Activity: Slowed - Interaction Observations Attitude Towards Examiner: Cooperative Stated Mood: Elevated Affect: Full, Bright Speech Pattern/Tone: Clear Thought Process: Coherent, Filght of Ideas Perception: WNL Thought Content: WNL Hallucination Type: Denies, Auditory, Visual Delusion Type: Latter Day - Cognitive Function Orientation: A&O x 4 Level of Consciousness: Awake, Alert, Appropriate Cognition: Impaired Ability to Abstract Estimated Intelligence: Normal Insight: Difficulty Acknowledging Presence of Psyciatric Problems Judgment Within Normal Limits: No Ability to Make Reasonable Decisions: Serverely Impaired - Medication Compliance Cooperative with Inpatient Medication Regimen: Yes - Group Participation Participates in Group Activities: Yes Assessment - Assessment Inpatient DSM-V Dx: F25.0 Clinical Impression: Una is a 58-year-old white woman with a history of schizoaffective disorder bipolar type who comes to the hospital by ambulance with concerns from her daughters that she is not taking care of herself adequately, including urinary in continence and lack of personal hygiene, as well as delusions and bizarre behavior. Plan - Plan Treatment Plan: Name: UNA BONNER Birthdate: 1960 [id number] 02/09/19 Una will continue titrating up on clozapine, increasing to 75 mg BID. Blood draw is scheduled for Tuesday. Referral to [facility] will commence. Medications: Current Medications Acetaminophen (Tylenol Tab*) 650 mg PO Q4H PRN PRN Reason: for pain; or Temp >101 F Last Admin: 02/04/19 19:25 Dose: 650 mg Al Hydrox/Mg Hydrox/Simethicone (Maalox Plus*) 30 ml PO Q4H PRN PRN Reason: INDIGESTION Last Admin: 01/31/19 05:56 Dose: 30 ml Albuterol (Ventolin Hfa Inhaler*) 2 puff INH Q2H PRN PRN Reason: SOB/WHEEZING Last Admin: 02/09/19 18:09 Dose: 2 puff Cetirizine HCl (Zyrtec*) 10 mg PO DAILY [facility] Last Admin: 02/09/19 09:12 Dose: 10 mg Cholecalciferol (Vitamin D Tab*) 1,000 units PO DAILY [facility] Last Admin: 02/09/19 09:13 Dose: 1,000 units Clozapine (Clozapine Tab*) 75 mg PO BID [facility] Ferrous Sulfate (Ferrous Sulfate Tab*) 325 mg PO DAILY [facility] Last Admin: 02/09/19 09:12 Dose: 325 mg Furosemide (Lasix Tab*) 20 mg PO 0800,1700 [facility] Last Admin: 02/09/19 16:55 Dose: 20 mg Hydroxyzine HCl (Atarax Tab*) 50 mg PO Q6H PRN PRN Reason: ANXIETY Last Admin: 02/01/19 23:58 Dose: 50 mg Ibuprofen (Motrin Tab*) 800 mg PO Q8H PRN PRN Reason: PAIN Last Admin: 02/04/19 21:12 Dose: 800 mg Lorazepam (Ativan Tab(*)) 2 mg PO Q6H PRN PRN Reason: Anxiety/agitation Last Admin: 02/09/19 02:15 Dose: 2 mg Meclizine HCl (Antivert Tab*) 25 mg PO BID [facility] Last Admin: 02/09/19 09:13 Dose: 25 mg Medroxyprogesterone Acetate (Provera Tab*) 20 mg PO BID [facility] Stop: 02/13/19 00:01 Last Admin: 02/09/19 09:14 Dose: 20 mg Multivitamins/Minerals (Theragran/Minerals Tab*) 1 tab PO DAILY [facility] Last Admin: 02/09/19 09:13 Dose: 1 tab Risperidone (Risperdal-M Tab *) 2 mg PO Q6H PRN; Protocol PRN Reason: Agitation/anxiety/psychosis Last Admin: 02/09/19 02:15 Dose: 2 mg Saliva Substitute (Biotene Moisturizing Mouth (Nf)) 2 spray MT Q6H [facility]; Protocol Last Admin: 02/09/19 18:12 Dose: Not Given Venlafaxine HCl (Effexor Xr Cap*) 150 mg PO DAILY [facility] Last Admin: 02/09/19 09:12 Dose: 150 mg Venlafaxine HCl (Effexor Xr Cap*) 75 mg PO DAILY [facility] Last Admin: 02/09/19 09:13 Dose: 75 mg
[2019-02-10] MEDS: CMCS:Saliva Substitute (NF) 1 SPRAY BTL MT SCH ×4 (05:00→20:27)
[2019-02-10] MEDS: CloZAPine TAB* 25 MG TAB PO SCH ×2 (09:26→20:28)
[2019-02-10] MEDS: Venlafaxine EXT RELEASE CAP* 75 MG PO SCH ×2 (09:27)
[2019-02-10] MEDS: Cholecalciferol TAB* 1000 UNITS PO SCH (09:27)
[2019-02-10] MEDS: Ferrous Sulfate TAB* 325 MG PO SCH (09:27)
[2019-02-10] MEDS: Multivitamins/Minerals TAB PO SCH (09:27)
[2019-02-10] MEDS: Cetirizine* 10 MG TAB PO SCH (09:27)
[2019-02-10] MEDS: Meclizine TAB* 12.5 MG PO SCH ×2 (09:28→20:28)
[2019-02-10] MEDS: Furosemide TAB* 20 MG PO SCH ×2 (09:28→18:05)
[2019-02-10] MEDS: medroxyPROGESTERone TAB* 10 MG PO SCH ×2 (09:28→20:27)
[2019-02-10] MEDS: Albuterol HFA INHALER* 8 gm MDI INH PRN (09:30)
[2019-02-11] MEDS: Acetaminophen TAB* 325 MG PO PRN (03:40)
[2019-02-11] MEDS: risperiDONE-M * 1 MG TAB.ORADIS PO PRN (04:07)
[2019-02-11] MEDS: CMCS:Saliva Substitute (NF) 1 SPRAY BTL MT SCH ×4 (04:08→20:56)
[2019-02-11] MEDS: Albuterol HFA INHALER* 8 gm MDI INH PRN ×2 (04:08→15:28)
[2019-02-11 08:15] LABS: ABS Eosinophils 0.2 10^3/ul (0-0.6); ABS Monocytes 0.6 10^3/ul (0-0.8); ABS Neutrophils 4.5 10^3/ul (1.5-7.7); Eosinophil % 2.4 %; Hematocrit 31 % (35-47); Hemoglobin 10.1 g/dL (12.0-16.0); Lymphocyte % 27.6 %; Mean Corpuscular HGB Conc 32 g/dL (31-36); Mean Corpuscular Hemoglobin 27 pg (27-31); Mean Corpuscular Volume 82 fL (80-97); Mean Platelet Volume 6.8 fL (7.4-10.4); Platelet Count 304 10^3/uL (150-450); Red Blood Count 3.83 10^6 /uL (3.70-4.87); Red Cell Distribution Width 16 % (10.5-15); White Blood Count 7.4 10^3/uL (3.5-10.8)
[2019-02-11] MEDS: Multivitamins/Minerals TAB PO SCH (08:52)
[2019-02-11] MEDS: CloZAPine TAB* 25 MG TAB PO SCH ×2 (08:52→20:52)
[2019-02-11] MEDS: Cholecalciferol TAB* 1000 UNITS PO SCH (08:52)
[2019-02-11] MEDS: Cetirizine* 10 MG TAB PO SCH (08:52)
[2019-02-11] MEDS: Venlafaxine EXT RELEASE CAP* 75 MG PO SCH ×2 (08:52)
[2019-02-11] MEDS: Ferrous Sulfate TAB* 325 MG PO SCH (08:52)
[2019-02-11] MEDS: medroxyPROGESTERone TAB* 10 MG PO SCH ×2 (08:53→20:54)
[2019-02-11] MEDS: Meclizine TAB* 12.5 MG PO SCH ×2 (08:53→20:53)
[2019-02-11] MEDS: Furosemide TAB* 20 MG PO SCH ×2 (08:53→17:33)
[2019-02-12] MEDS: CMCS:Saliva Substitute (NF) 1 SPRAY BTL MT SCH ×5 (05:01→21:10)
[2019-02-12] MEDS: Cholecalciferol TAB* 1000 UNITS PO SCH (08:50)
[2019-02-12] MEDS: CloZAPine TAB* 25 MG TAB PO SCH ×2 (08:50→21:11)
[2019-02-12] MEDS: Cetirizine* 10 MG TAB PO SCH (08:51)
[2019-02-12] MEDS: Venlafaxine EXT RELEASE CAP* 75 MG PO SCH ×2 (08:51→08:53)
[2019-02-12] MEDS: Ferrous Sulfate TAB* 325 MG PO SCH (08:53)
[2019-02-12] MEDS: Multivitamins/Minerals TAB PO SCH (08:53)
[2019-02-12] MEDS: Meclizine TAB* 12.5 MG PO SCH ×2 (08:54→21:09)
[2019-02-12] MEDS: Albuterol HFA INHALER* 8 gm MDI INH PRN (08:55)
[2019-02-12] MEDS: medroxyPROGESTERone TAB* 10 MG PO SCH ×2 (08:55→21:09)
[2019-02-12] MEDS: Furosemide TAB* 20 MG PO SCH ×2 (08:56→17:09)
--- NOTE | 2019-02-12 11:30 | PN ---
Subjective - Subjective Date of Service: 02/12/19 Service Type: 00389 Hosp care 15 min low complexity Subjective: Una is seen in Holiday coverage for NPP, Brittanie Alexis. The patient is pleasant and welcoming, sitting in her bed with her feet propped up due to bilateral ankle edema. She shows me some of her artwork and reports that she's anticipating discharge tomorrow. She denies SI, delusional complaints or hallucinations, however, staff reports indicate that she has been delusional and disruptive on the unit, at times walking the hallways screaming "Security! Security!" Objective - General Observations Appearance: Well Groomed Appears Stated Age: Yes Stature: Overweight Posture: WNL Eye Contact: Average Behavior/Activity: WNL - Interaction Observations Attitude Towards Examiner: Cooperative Stated Mood: Euthymic Affect: Full Speech Pattern/Tone: Clear Thought Process: Coherent Perception: WNL Thought Content: WNL Hallucination Type: None Delusion Type: None - Cognitive Function Orientation: A&O x 4 Level of Consciousness: Awake Cognition: WNL Estimated Intelligence: Normal Insight: Difficulty Acknowledging Presence of Psyciatric Problems Judgment Within Normal Limits: No Ability to Make Reasonable Decisions: Serverely Impaired - Medication Compliance Cooperative with Inpatient Medication Regimen: Yes - Group Participation Participates in Group Activities: No Assessment - Assessment Merits Inpatient Hospitalization: Consolidate Improvements, Pending Safe DC Plan Inpatient DSM-V Dx: F25.0 Clinical Impression: Una is a 58-year-old white woman with a history of schizoaffective disorder bipolar type who comes to the hospital by ambulance with concerns from her daughters that she is not taking care of herself adequately, including urinary in continence and lack of personal hygiene, as well as delusions and bizarre behavior. Plan - Plan Treatment Plan: Name: UNA BONNER Birthdate: 1960 [id number] 02/09/19 Una will continue titrating up on clozapine, increasing to 75 mg BID. Blood draw is scheduled for Tuesday. Referral to [facility] will commence. Continued Medication Management: Different Medication Medications: Current Medications Acetaminophen (Tylenol Tab*) 650 mg PO Q4H PRN PRN Reason: for pain; or Temp >101 F Last Admin: 02/11/19 03:40 Dose: 650 mg Al Hydrox/Mg Hydrox/Simethicone (Maalox Plus*) 30 ml PO Q4H PRN PRN Reason: INDIGESTION Last Admin: 01/31/19 05:56 Dose: 30 ml Albuterol (Ventolin Hfa Inhaler*) 2 puff INH Q2H PRN PRN Reason: SOB/WHEEZING Last Admin: 02/12/19 08:55 Dose: 2 puff Cetirizine HCl (Zyrtec*) 10 mg PO DAILY [facility] Last Admin: 02/12/19 08:51 Dose: 10 mg Cholecalciferol (Vitamin D Tab*) 1,000 units PO DAILY [facility] Last Admin: 02/12/19 08:50 Dose: 1,000 units Clozapine (Clozapine Tab*) 75 mg PO BID [facility] Last Admin: 02/12/19 08:50 Dose: 75 mg Ferrous Sulfate (Ferrous Sulfate Tab*) 325 mg PO DAILY [facility] Last Admin: 02/12/19 08:53 Dose: 325 mg Furosemide (Lasix Tab*) 20 mg PO 0800,1700 [facility] Last Admin: 02/12/19 08:56 Dose: 20 mg Hydroxyzine HCl (Atarax Tab*) 50 mg PO Q6H PRN PRN Reason: ANXIETY Last Admin: 02/01/19 23:58 Dose: 50 mg Ibuprofen (Motrin Tab*) 800 mg PO Q8H PRN PRN Reason: PAIN Last Admin: 02/04/19 21:12 Dose: 800 mg Lorazepam (Ativan Tab(*)) 2 mg PO Q6H PRN PRN Reason: Anxiety/agitation Last Admin: 02/09/19 02:15 Dose: 2 mg Meclizine HCl (Antivert Tab*) 25 mg PO BID [facility] Last Admin: 02/12/19 08:54 Dose: 25 mg Medroxyprogesterone Acetate (Provera Tab*) 20 mg PO BID [facility] Stop: 02/13/19 00:01 Last Admin: 02/12/19 08:55 Dose: 20 mg Multivitamins/Minerals (Theragran/Minerals Tab*) 1 tab PO DAILY [facility] Last Admin: 02/12/19 08:53 Dose: 1 tab Risperidone (Risperdal-M Tab *) 2 mg PO Q6H PRN; Protocol PRN Reason: Agitation/anxiety/psychosis Last Admin: 02/11/19 04:07 Dose: 2 mg Saliva Substitute (Biotene Moisturizing Mouth (Nf)) 2 spray MT Q6H [facility]; Protocol Last Admin: 02/12/19 11:01 Dose: Not Given Venlafaxine HCl (Effexor Xr Cap*) 150 mg PO DAILY [facility] Last Admin: 02/12/19 08:51 Dose: 150 mg Venlafaxine HCl (Effexor Xr Cap*) 75 mg PO DAILY [facility] Last Admin: 02/12/19 08:53 Dose: 75 mg - Discharge Plan Discharge Plan: Consider Longer Term Tx Lab Results - Lab Results Lab Results: 02/11/19 07:17 WBC 7.4 RBC 3.83 Hgb 10.1 L Hct 31 L MCV 82 MCH 27 MCHC 32 RDW 16 H Plt Count 304 MPV 6.8 L Neut % (Auto) 60.7 Lymph % (Auto) 27.6 [place] % (Auto) 8.7 Eos % (Auto) 2.4 Baso % (Auto) 0.6 Absolute Neuts (auto) 4.5 Absolute Lymphs (auto) 2.0 Absolute Monos (auto) 0.6 Absolute Eos (auto) 0.2 Absolute Basos (auto) 0.0 Absolute Nucleated RBC 0.0 Nucleated RBC % 0.0
[2019-02-13] MEDS: CMCS:Saliva Substitute (NF) 1 SPRAY BTL MT SCH ×4 (02:35→20:57)
[2019-02-13] MEDS: Cholecalciferol TAB* 1000 UNITS PO SCH (08:17)
[2019-02-13] MEDS: CloZAPine TAB* 25 MG TAB PO SCH ×2 (08:17→20:46)
[2019-02-13] MEDS: Ferrous Sulfate TAB* 325 MG PO SCH (08:17)
[2019-02-13] MEDS: Cetirizine* 10 MG TAB PO SCH (08:18)
[2019-02-13] MEDS: Venlafaxine EXT RELEASE CAP* 75 MG PO SCH ×2 (08:18)
[2019-02-13] MEDS: Furosemide TAB* 20 MG PO SCH ×2 (08:19→18:44)
[2019-02-13] MEDS: Meclizine TAB* 12.5 MG PO SCH ×2 (08:19→20:46)
[2019-02-13] MEDS: Multivitamins/Minerals TAB PO SCH (08:20)
--- NOTE | 2019-02-13 13:21 | PN ---
BSU: Group Therapy Note - Service Type Service Type: 71115 Group Psychotherapy - Cognitive Behavioral Group Therapy ( CBT):Patient was attentive and participatory in CBT programming this morning, and remained in good behavioral control. Patient expressed positive insights regarding relevant treatment interventions and goals.
[2019-02-13] MEDS: Docusate CAP* 100 MG PO SCH (20:46)
[2019-02-14] MEDS: hydrOXYzine HCL TAB* 50 MG PO PRN (00:39)
[2019-02-14] MEDS: Acetaminophen TAB* 325 MG PO PRN (04:52)
[2019-02-14] MEDS: CMCS:Saliva Substitute (NF) 1 SPRAY BTL MT SCH ×3 (04:53→15:56)
[2019-02-14] MEDS: Ferrous Sulfate TAB* 325 MG PO SCH (08:52)
[2019-02-14] MEDS: Furosemide TAB* 20 MG PO SCH (08:52)
[2019-02-14] MEDS: CloZAPine TAB* 25 MG TAB PO SCH (08:52)
[2019-02-14] MEDS: Cholecalciferol TAB* 1000 UNITS PO SCH (08:52)
[2019-02-14] MEDS: Meclizine TAB* 12.5 MG PO SCH (08:52)
[2019-02-14] MEDS: Venlafaxine EXT RELEASE CAP* 75 MG PO SCH (08:52)
[2019-02-14] MEDS: Multivitamins/Minerals TAB PO SCH (08:52)
[2019-02-14] MEDS: Cetirizine* 10 MG TAB PO SCH (08:52)
[2019-02-14] MEDS: Docusate CAP* 100 MG PO SCH (08:55)
[2019-02-14] MEDS: Albuterol HFA INHALER* 8 gm MDI INH PRN (09:05)
[2019-02-14] MEDS ORDERED: ARIPIPRAZOLE 400 MG IM SCH (11:00)
--- NOTE | 2019-02-14 13:57 | PN ---
Subjective - Subjective Date of Service: 02/14/19 Service Type: 39182 Hosp care 15 min low complexity Subjective: Una is happy and content, finding life to be beautiful, and feeling "perfect" and "much better than yesterday!" Una's data has been entered into the [facility] referral system. Her lung sounds include rhonchi and her edema appears to be getting worse in her ankles and legs. Lasix is increased to 40 mg BID. We are initiating her Abilify Maintena 400 mg dose for today although she is not due until February 20, 2019. Una may benefit from a true mood stabilizer at this time. Objective - General Observations Appearance: Disheveled Appears Stated Age: Yes Stature: Overweight Posture: WNL Eye Contact: Intense Behavior/Activity: WNL, Slowed, Peculiar - Interaction Observations Attitude Towards Examiner: Cooperative, Ingratiating Stated Mood: Elevated Affect: Bright Speech Pattern/Tone: Clear Thought Process: Coherent, Filght of Ideas Perception: WNL Thought Content: Preoccupation/Ruminations, Grandiose Hallucination Type: Denies Delusion Type: Denies, Jain - Cognitive Function Orientation: A&O x 4 Level of Consciousness: Awake, Alert, Appropriate Cognition: WNL, Impaired Ability to Abstract Estimated Intelligence: Borderline Range Insight: Difficulty Acknowledging Presence of Psyciatric Problems Judgment Within Normal Limits: No Ability to Make Reasonable Decisions: Serverely Impaired - Medication Compliance Cooperative with Inpatient Medication Regimen: Partial - Group Participation Participates in Group Activities: Yes Assessment - Assessment Inpatient DSM-V Dx: F25.0 Clinical Impression: Una is a 58-year-old white woman with a history of schizoaffective disorder bipolar type who comes to the hospital by ambulance with concerns from her daughters that she is not taking care of herself adequately, including urinary in continence and lack of personal hygiene, as well as delusions and bizarre behavior. Plan - Plan Treatment Plan: Name: UNA BONNER Birthdate: 1960 [id number] 02/09/19 Una will continue titrating up on clozapine, increasing to 75 mg BID. Blood draw is scheduled for Tuesday. Referral to [facility] will commence. 02/14/19 Referral to [facility] today. Abilify Maintena 400 mg injected today. Clozapine is at 200 mg daily total. Will investigate past use of mood stabilizers. Medications: Current Medications Acetaminophen (Tylenol Tab*) 650 mg PO Q4H PRN PRN Reason: for pain; or Temp >101 F Last Admin: 02/14/19 04:52 Dose: 650 mg Al Hydrox/Mg Hydrox/Simethicone (Maalox Plus*) 30 ml PO Q4H PRN PRN Reason: INDIGESTION Last Admin: 01/31/19 05:56 Dose: 30 ml Albuterol (Ventolin Hfa Inhaler*) 2 puff INH Q2H PRN PRN Reason: SOB/WHEEZING Last Admin: 02/14/19 09:05 Dose: 2 puff Aripiprazole (Abilifsergei Maintena (Nf)) 400 mg IM Q28D [facility] Cetirizine HCl (Zyrtec*) 10 mg PO DAILY [facility] Last Admin: 02/14/19 08:52 Dose: 10 mg Cholecalciferol (Vitamin D Tab*) 1,000 units PO DAILY [facility] Last Admin: 02/14/19 08:52 Dose: 1,000 units Clozapine (Clozapine Tab*) 100 mg PO BID [facility] Last Admin: 02/14/19 08:52 Dose: 100 mg Docusate Sodium (Colace Cap*) 100 mg PO BID [facility] Last Admin: 02/14/19 08:55 Dose: Not Given Ferrous Sulfate (Ferrous Sulfate Tab*) 325 mg PO DAILY [facility] Last Admin: 02/14/19 08:52 Dose: 325 mg Furosemide (Lasix Tab*) 40 mg PO 0800,1700 [facility] Hydroxyzine HCl (Atarax Tab*) 50 mg PO Q6H PRN PRN Reason: ANXIETY Last Admin: 02/14/19 00:39 Dose: 50 mg Ibuprofen (Motrin Tab*) 800 mg PO Q8H PRN PRN Reason: PAIN Last Admin: 02/04/19 21:12 Dose: 800 mg Lorazepam (Ativan Tab(*)) 2 mg PO Q6H PRN PRN Reason: Anxiety/agitation Last Admin: 02/09/19 02:15 Dose: 2 mg Lorazepam (Ativan Tab(*)) 1 mg PO BEDTIME [facility] Meclizine HCl (Antivert Tab*) 25 mg PO BID [facility] Last Admin: 02/14/19 08:52 Dose: 25 mg Multivitamins/Minerals (Theragran/Minerals Tab*) 1 tab PO DAILY [facility] Last Admin: 02/14/19 08:52 Dose: 1 tab Risperidone (Risperdal-M Tab *) 2 mg PO Q6H PRN; Protocol PRN Reason: Agitation/anxiety/psychosis Last Admin: 02/11/19 04:07 Dose: 2 mg Saliva Substitute (Biotene Moisturizing Mouth (Nf)) 2 spray MT Q6H [facility]; Protocol Last Admin: 02/14/19 08:51 Dose: 2 spray Venlafaxine HCl (Effexor Xr Cap*) 150 mg PO DAILY [facility] Last Admin: 02/14/19 08:52 Dose: 150 mg - Discharge Plan Discharge Plan: Consider Longer Term Tx
--- NOTE | 2019-02-14 16:20 | PN ---
BSU: Group Therapy Note - Service Type Service Type: [id number] Group Psychotherapy - Medication Education Group: Patient was attentive and participatory in group, and remained in good behavioral control. Patient expressed positive insights regarding relevant treatment interventions. Patient stated understanding of material discussed and had appropriate questions.
[2019-02-14] MEDS: Furosemide TAB* 40 MG PO SCH (16:21)
[2019-02-15] MEDS: CMCS:Saliva Substitute (NF) 1 SPRAY BTL MT SCH ×6 (03:00→20:25)
[2019-02-15] MEDS: Acetaminophen TAB* 325 MG PO PRN ×2 (04:50→08:54)
[2019-02-15] MEDS: Albuterol HFA INHALER* 8 gm MDI INH PRN ×2 (04:50→08:53)
[2019-02-15] MEDS: Cholecalciferol TAB* 1000 UNITS PO SCH (09:39)
[2019-02-15] MEDS: CloZAPine TAB* 25 MG TAB PO SCH ×2 (09:39)
[2019-02-15] MEDS: Docusate CAP* 100 MG PO SCH ×3 (09:39→20:25)
[2019-02-15] MEDS: Ferrous Sulfate TAB* 325 MG PO SCH (09:40)
[2019-02-15] MEDS: Cetirizine* 10 MG TAB PO SCH (09:40)
[2019-02-15] MEDS: Furosemide TAB* 40 MG PO SCH ×2 (09:40→17:48)
[2019-02-15] MEDS: Multivitamins/Minerals TAB PO SCH (09:40)
[2019-02-15] MEDS: Venlafaxine EXT RELEASE CAP* 75 MG PO SCH (09:41)
[2019-02-15] MEDS: Meclizine TAB* 12.5 MG PO SCH ×3 (10:01→20:22)
--- NOTE | 2019-02-15 14:27 | PN ---
BSU: Group Therapy Note - Service Type Service Type: [id number] Group Psychotherapy - Cognitive Behavioral Group Therapy ( CBT):Patient presented in CBT programming as disorganized and disruptive in discussion and needed repeated redirection to attend to presented materials.
[2019-02-15] MEDS: LORazepam TAB(*) 1 MG PO SCH ×2 (20:22)
[2019-02-15] MEDS: CloZAPine TAB* 100 MG TAB PO SCH (20:23)
[2019-02-16] MEDS: Ibuprofen TAB* 800 MG PO PRN (02:50)
[2019-02-16] MEDS: Acetaminophen TAB* 325 MG PO PRN ×2 (02:50→18:20)
[2019-02-16] MEDS: CMCS:Saliva Substitute (NF) 1 SPRAY BTL MT SCH ×4 (02:50→20:45)
[2019-02-16] MEDS: hydrOXYzine HCL TAB* 50 MG PO PRN (02:50)
[2019-02-16] MEDS: Venlafaxine EXT RELEASE CAP* 75 MG PO SCH (08:45)
[2019-02-16] MEDS: Cetirizine* 10 MG TAB PO SCH (08:45)
[2019-02-16] MEDS: Furosemide TAB* 40 MG PO SCH ×2 (08:46→16:57)
[2019-02-16] MEDS: Cholecalciferol TAB* 1000 UNITS PO SCH (08:46)
[2019-02-16] MEDS: Docusate CAP* 100 MG PO SCH ×3 (08:46→21:02)
[2019-02-16] MEDS: CloZAPine TAB* 100 MG TAB PO SCH ×2 (08:46→20:48)
[2019-02-16] MEDS: Meclizine TAB* 12.5 MG PO SCH ×2 (08:46→20:48)
[2019-02-16] MEDS: Ferrous Sulfate TAB* 325 MG PO SCH (08:47)
[2019-02-16] MEDS: Multivitamins/Minerals TAB PO SCH (08:47)
[2019-02-16] MEDS: Albuterol HFA INHALER* 8 gm MDI INH PRN ×3 (08:53→20:45)
[2019-02-16] MEDS ORDERED: Magnesium Hydroxide LIQ* 30 ML UDC PO ONE (12:20)
--- NOTE | 2019-02-16 17:44 | PN ---
Subjective - Subjective Date of Service: 02/16/19 Service Type: 96391 Hosp care 15 min low complexity Subjective: Una remains pleasant and somewhat elevated. She has not improved significantly recently. We have referred her to [facility] and she has been accepted to [facility]. She was offered Depakote, which causes her to lose her hair, and lithium, which she declined due to feeling like it made her "too salty" and having to drink too much water. She stated she had taken lithium for most of her life and that she doesn't want to take it again. Further, she does not perceive herself to be having any problems. She states, "I'm the mom. I know when I'm okay." Objective - General Observations Appearance: Disheveled Appears Stated Age: Yes Stature: Overweight Posture: WNL Eye Contact: Intense Behavior/Activity: Slowed - Interaction Observations Attitude Towards Examiner: Cooperative, Ingratiating Stated Mood: Elevated Affect: Full Speech Pattern/Tone: Clear Thought Process: Coherent, Loose Associations Perception: WNL Thought Content: Grandiose Hallucination Type: Denies, Auditory, Visual Delusion Type: Denies, Catholic - Cognitive Function Orientation: A&O x 4 Level of Consciousness: Awake, Alert, Appropriate Cognition: WNL, Impaired Ability to Abstract Estimated Intelligence: Normal Insight: Difficulty Acknowledging Presence of Psyciatric Problems Judgment Within Normal Limits: No Ability to Make Reasonable Decisions: Serverely Impaired - Medication Compliance Cooperative with Inpatient Medication Regimen: Yes - Group Participation Participates in Group Activities: Yes Assessment - Assessment Inpatient DSM-V Dx: F25.0 Clinical Impression: Una is a 58-year-old white woman with a history of schizoaffective disorder bipolar type who comes to the hospital by ambulance with concerns from her daughters that she is not taking care of herself adequately, including urinary in continence and lack of personal hygiene, as well as delusions and bizarre behavior. Plan - Plan Treatment Plan: Name: UNA BONNER Birthdate: 1960 [id number] 02/09/19 Una will continue titrating up on clozapine, increasing to 75 mg BID. Blood draw is scheduled for Tuesday. Referral to [facility] will commence. 02/14/19 Referral to [facility] today. Glolifsergei Maintena 400 mg injected today. Clozapine is at 200 mg daily total. Will investigate past use of mood stabilizers. 02/16/19 Una has been accepted to [facility] to be transferred Tuesday or after. Una has not agreed to take a mood stabilizer. The Maintena was administered early (it was due on 02/20, but was given on 02/14) Medications: Current Medications Acetaminophen (Tylenol Tab*) 650 mg PO Q4H PRN PRN Reason: for pain; or Temp >101 F Last Admin: 02/16/19 02:50 Dose: 650 mg Al Hydrox/Mg Hydrox/Simethicone (Maalox Plus*) 30 ml PO Q4H PRN PRN Reason: INDIGESTION Last Admin: 01/31/19 05:56 Dose: 30 ml Albuterol (Ventolin Hfa Inhaler*) 2 puff INH Q2H PRN PRN Reason: SOB/WHEEZING Last Admin: 02/16/19 08:53 Dose: 2 puff Aripiprazole (Abilify Maintena (Nf)) 400 mg IM Q28D [facility] Last Admin: 02/14/19 15:51 Dose: 400 mg Cetirizine HCl (Zyrtec*) 10 mg PO DAILY [facility] Last Admin: 02/16/19 08:45 Dose: 10 mg Cholecalciferol (Vitamin D Tab*) 1,000 units PO DAILY [facility] Last Admin: 02/16/19 08:46 Dose: 1,000 units Clozapine (Clozapine Tab*) 100 mg PO BID [facility] Last Admin: 02/16/19 08:46 Dose: 100 mg Docusate Sodium (Colace Cap*) 100 mg PO BID [facility] Last Admin: 02/16/19 08:54 Dose: 100 mg Ferrous Sulfate (Ferrous Sulfate Tab*) 325 mg PO DAILY [facility] Last Admin: 02/16/19 08:47 Dose: 325 mg Furosemide (Lasix Tab*) 40 mg PO 0800,1700 [facility] Last Admin: 02/16/19 16:57 Dose: 40 mg Hydroxyzine HCl (Atarax Tab*) 50 mg PO Q6H PRN PRN Reason: ANXIETY Last Admin: 02/16/19 02:50 Dose: 50 mg Ibuprofen (Motrin Tab*) 800 mg PO Q8H PRN PRN Reason: PAIN Last Admin: 02/16/19 02:50 Dose: 800 mg Lorazepam (Ativan Tab(*)) 2 mg PO Q6H PRN PRN Reason: Anxiety/agitation Last Admin: 02/09/19 02:15 Dose: 2 mg Lorazepam (Ativan Tab(*)) 1 mg PO BEDTIME [facility] Last Admin: 02/15/19 20:22 Dose: 1 mg Meclizine HCl (Antivert Tab*) 25 mg PO BID [facility] Last Admin: 02/16/19 08:46 Dose: 25 mg Multivitamins/Minerals (Theragran/Minerals Tab*) 1 tab PO DAILY [facility] Last Admin: 02/16/19 08:47 Dose: 1 tab Risperidone (Risperdal-M Tab *) 2 mg PO Q6H PRN; Protocol PRN Reason: Agitation/anxiety/psychosis Last Admin: 02/11/19 04:07 Dose: 2 mg Saliva Substitute (Biotene Moisturizing Mouth (Nf)) 2 spray MT Q6H [facility]; Protocol Last Admin: 02/16/19 16:21 Dose: Not Given Venlafaxine HCl (Effexor Xr Cap*) 150 mg PO DAILY [facility] Last Admin: 02/16/19 08:45 Dose: 150 mg - Discharge Plan Discharge Plan: Consider Longer Term Tx
[2019-02-16] MEDS: LORazepam TAB(*) 1 MG PO SCH (20:48)
[2019-02-17] MEDS: Acetaminophen TAB* 325 MG PO PRN ×2 (05:06→14:33)
[2019-02-17] MEDS: CMCS:Saliva Substitute (NF) 1 SPRAY BTL MT SCH ×4 (05:07→20:51)
[2019-02-17] MEDS: Ferrous Sulfate TAB* 325 MG PO SCH (08:39)
[2019-02-17] MEDS: Venlafaxine EXT RELEASE CAP* 75 MG PO SCH (08:39)
[2019-02-17] MEDS: Cetirizine* 10 MG TAB PO SCH (08:39)
[2019-02-17] MEDS: Furosemide TAB* 40 MG PO SCH ×2 (08:39→17:48)
[2019-02-17] MEDS: Cholecalciferol TAB* 1000 UNITS PO SCH (08:40)
[2019-02-17] MEDS: Multivitamins/Minerals TAB PO SCH (08:40)
[2019-02-17] MEDS: Meclizine TAB* 12.5 MG PO SCH ×2 (08:40→21:31)
[2019-02-17] MEDS: CloZAPine TAB* 100 MG TAB PO SCH ×2 (08:40→20:50)
[2019-02-17] MEDS: Docusate CAP* 100 MG PO SCH ×2 (08:43→20:50)
[2019-02-17] MEDS: Albuterol HFA INHALER* 8 gm MDI INH PRN (14:34)
[2019-02-17] MEDS: LORazepam TAB(*) 1 MG PO SCH (20:50)
[2019-02-18] MEDS: hydrOXYzine HCL TAB* 50 MG PO PRN (02:10)
[2019-02-18] MEDS: CMCS:Saliva Substitute (NF) 1 SPRAY BTL MT SCH ×4 (02:11→21:25)
[2019-02-18] MEDS: Cetirizine* 10 MG TAB PO SCH (08:57)
[2019-02-18] MEDS: Multivitamins/Minerals TAB PO SCH (08:57)
[2019-02-18] MEDS: Furosemide TAB* 40 MG PO SCH ×2 (08:57→17:37)
[2019-02-18] MEDS: Ferrous Sulfate TAB* 325 MG PO SCH (08:57)
[2019-02-18] MEDS: Venlafaxine EXT RELEASE CAP* 75 MG PO SCH (08:58)
[2019-02-18] MEDS: Cholecalciferol TAB* 1000 UNITS PO SCH (08:58)
[2019-02-18] MEDS: Docusate CAP* 100 MG PO SCH ×2 (08:58→21:24)
[2019-02-18] MEDS: CloZAPine TAB* 100 MG TAB PO SCH ×2 (08:58→21:23)
[2019-02-18] MEDS: Meclizine TAB* 12.5 MG PO SCH ×2 (08:58→21:26)
[2019-02-18] MEDS: Albuterol HFA INHALER* 8 gm MDI INH PRN ×2 (09:00→14:50)
[2019-02-18 14:48] LABS: ABS Eosinophils 0.1 10^3/ul (0-0.6); ABS Lymphocytes 1.8 10^3/ul (1.0-4.8); ABS Monocytes 0.5 10^3/ul (0-0.8); ABS Neutrophils 3.8 10^3/ul (1.5-7.7); Eosinophil % 2.4 %; Hematocrit 35 % (35-47); Hemoglobin 11.2 g/dL (12.0-16.0); Lymphocyte % 27.9 %; Mean Corpuscular HGB Conc 32 g/dL (31-36); Mean Corpuscular Hemoglobin 27 pg (27-31); Mean Corpuscular Volume 83 fL (80-97); Mean Platelet Volume 6.1 fL (7.4-10.4); Platelet Count 362 10^3/uL (150-450); Red Blood Count 4.18 10^6 /uL (3.70-4.87); Red Cell Distribution Width 17 % (10.5-15); White Blood Count 6.3 10^3/uL (3.5-10.8)
[2019-02-18] MEDS: Acetaminophen TAB* 325 MG PO PRN (14:49)
[2019-02-18] MEDS: Al Hydrox/Mg Hydrox/Simet LIQ* 30 ML UDC PO PRN (14:51)
[2019-02-18] MEDS: LORazepam TAB(*) 1 MG PO SCH (21:24)
[2019-02-19] MEDS: Ibuprofen TAB* 800 MG PO PRN (03:15)
[2019-02-19] MEDS: CMCS:Saliva Substitute (NF) 1 SPRAY BTL MT SCH ×4 (03:16→20:38)
[2019-02-19] MEDS: Multivitamins/Minerals TAB PO SCH (08:43)
[2019-02-19] MEDS: Ferrous Sulfate TAB* 325 MG PO SCH (08:43)
[2019-02-19] MEDS: Albuterol HFA INHALER* 8 gm MDI INH PRN ×2 (08:43→15:32)
[2019-02-19] MEDS: Furosemide TAB* 40 MG PO SCH ×2 (08:43→16:36)
[2019-02-19] MEDS: CloZAPine TAB* 100 MG TAB PO SCH ×2 (08:44→20:40)
[2019-02-19] MEDS: Cetirizine* 10 MG TAB PO SCH (08:44)
[2019-02-19] MEDS: Venlafaxine EXT RELEASE CAP* 75 MG PO SCH (08:44)
[2019-02-19] MEDS: Meclizine TAB* 12.5 MG PO SCH ×2 (08:44→20:41)
[2019-02-19] MEDS: Cholecalciferol TAB* 1000 UNITS PO SCH (08:44)
[2019-02-19] MEDS: Docusate CAP* 100 MG PO SCH ×2 (08:46→20:40)
[2019-02-19 08:47] VITALS: BP 114/76
--- NOTE | 2019-02-19 13:00 | PN ---
BSU: Group Therapy Note - Service Type Service Type: 46201 Group Psychotherapy - Cognitive Behavioral Group Therapy ( CBT):Patient presented in CBT programming as disorganized and disruptive in discussion and needed repeated redirection to attend to presented materials.
--- NOTE | 2019-02-19 18:39 | PN ---
Subjective - Subjective Date of Service: 02/19/19 Service Type: 98219 Hosp care 15 min low complexity Subjective: Una is scheduled to go to [facility] tomorrow. She was informed of this and was not enthusiastic, but she was also not particularly bothered, either. Una spent her time with me showing me artwork that she had made and that her friends had made. She also took copious notes about groups that were meaningful to her, although a bit odd out of context. For example, she wrote, "Stay away from lobsters," to indicate a way to stay away from combative people. She remains elevated but pleasant to many, although she is known to target others at times and has poor boundaries. Objective - General Observations Appearance: Disheveled Appears Stated Age: Yes Stature: Overweight Posture: WNL Eye Contact: Intense Behavior/Activity: Slowed, Peculiar - Interaction Observations Attitude Towards Examiner: Cooperative Stated Mood: Elevated, Euthymic Affect: Bright Speech Pattern/Tone: Clear Thought Process: Coherent, Filght of Ideas Perception: WNL Thought Content: Grandiose Hallucination Type: None, Denies Delusion Type: None, Denies - Cognitive Function Orientation: A&O x 4 Level of Consciousness: Awake, Alert, Appropriate Cognition: WNL Estimated Intelligence: Normal Insight: Difficulty Acknowledging Presence of Psyciatric Problems Judgment Within Normal Limits: No Ability to Make Reasonable Decisions: Serverely Impaired - Medication Compliance Cooperative with Inpatient Medication Regimen: Yes - Group Participation Participates in Group Activities: Yes Assessment - Assessment Merits Inpatient Hospitalization: For Immediate Safety, Pending Safe DC Plan Inpatient DSM-V Dx: F25.0 Clinical Impression: Una is a 58-year-old white woman with a history of schizoaffective disorder bipolar type who comes to the hospital by ambulance with concerns from her daughters that she is not taking care of herself adequately, including urinary in continence and lack of personal hygiene, as well as delusions and bizarre behavior. Plan - Plan Treatment Plan: Name: UNA BONNER Birthdate: 1960 [id number] 02/09/19 Una will continue titrating up on clozapine, increasing to 75 mg BID. Blood draw is scheduled for Tuesday. Referral to [facility] will commence. 02/14/19 Referral to [facility] today. Abilify Maintena 400 mg injected today. Clozapine is at 200 mg daily total. Will investigate past use of mood stabilizers. 02/16/19 Una has been accepted to [facility] to be transferred Tuesday or after. Una has not agreed to take a mood stabilizer. The Maintena was administered early (it was due on 02/20, but was given on 02/14) 02/19/19 Una is to be discharged to [facility] on 02/20/19. No med changes were done today. I spoke with Dr. Collazo at [facility] today and informed him of Una's condition. Medications: Current Medications Acetaminophen (Tylenol Tab*) 650 mg PO Q4H PRN PRN Reason: for pain; or Temp >101 F Last Admin: 02/18/19 14:49 Dose: 650 mg Al Hydrox/Mg Hydrox/Simethicone (Maalox Plus*) 30 ml PO Q4H PRN PRN Reason: INDIGESTION Last Admin: 02/18/19 14:51 Dose: 30 ml Albuterol (Ventolin Hfa Inhaler*) 2 puff INH Q2H PRN PRN Reason: SOB/WHEEZING Last Admin: 02/19/19 15:32 Dose: 2 puff Aripiprazole (Abilify Maintena (Nf)) 400 mg IM Q28D [facility] Last Admin: 02/14/19 15:51 Dose: 400 mg Cetirizine HCl (Zyrtec*) 10 mg PO DAILY [facility] Last Admin: 02/19/19 08:44 Dose: 10 mg Cholecalciferol (Vitamin D Tab*) 1,000 units PO DAILY [facility] Last Admin: 02/19/19 08:44 Dose: 1,000 units Clozapine (Clozapine Tab*) 100 mg PO BID [facility] Last Admin: 02/19/19 08:44 Dose: 100 mg Docusate Sodium (Colace Cap*) 100 mg PO BID [facility] Last Admin: 02/19/19 08:46 Dose: Not Given Ferrous Sulfate (Ferrous Sulfate Tab*) 325 mg PO DAILY [facility] Last Admin: 02/19/19 08:43 Dose: 325 mg Furosemide (Lasix Tab*) 40 mg PO 0800,1700 [facility] Last Admin: 02/19/19 16:36 Dose: 40 mg Hydroxyzine HCl (Atarax Tab*) 50 mg PO Q6H PRN PRN Reason: ANXIETY Last Admin: 02/18/19 02:10 Dose: 50 mg Ibuprofen (Motrin Tab*) 800 mg PO Q8H PRN PRN Reason: PAIN Last Admin: 02/19/19 03:15 Dose: 800 mg Lorazepam (Ativan Tab(*)) 2 mg PO Q6H PRN PRN Reason: Anxiety/agitation Last Admin: 02/09/19 02:15 Dose: 2 mg Lorazepam (Ativan Tab(*)) 1 mg PO BEDTIME [facility] Last Admin: 02/18/19 21:24 Dose: Not Given Meclizine HCl (Antivert Tab*) 25 mg PO BID [facility] Last Admin: 02/19/19 08:44 Dose: 25 mg Multivitamins/Minerals (Theragran/Minerals Tab*) 1 tab PO DAILY [facility] Last Admin: 02/19/19 08:43 Dose: 1 tab Risperidone (Risperdal-M Tab *) 2 mg PO Q6H PRN; Protocol PRN Reason: Agitation/anxiety/psychosis Last Admin: 02/11/19 04:07 Dose: 2 mg Saliva Substitute (Biotene Moisturizing Mouth (Nf)) 2 spray MT Q6H STEPHANIE; Protocol Last Admin: 02/19/19 15:32 Dose: 2 spray Venlafaxine HCl (Effexor Xr Cap*) 150 mg PO DAILY [facility] Last Admin: 02/19/19 08:44 Dose: 150 mg
[2019-02-19] MEDS: LORazepam TAB(*) 1 MG PO SCH (20:40)
[2019-02-20] MEDS: Acetaminophen TAB* 325 MG PO PRN (00:10)
[2019-02-20] MEDS: Ibuprofen TAB* 800 MG PO PRN (00:45)
[2019-02-20] MEDS: CMCS:Saliva Substitute (NF) 1 SPRAY BTL MT SCH ×2 (03:05→07:45)
[2019-02-20] MEDS: hydrOXYzine HCL TAB* 50 MG PO PRN (04:15)
[2019-02-20] MEDS: CloZAPine TAB* 100 MG TAB PO SCH (07:45)
[2019-02-20] MEDS: Cholecalciferol TAB* 1000 UNITS PO SCH (07:45)
[2019-02-20] MEDS: Ferrous Sulfate TAB* 325 MG PO SCH (07:45)
[2019-02-20] MEDS: Meclizine TAB* 12.5 MG PO SCH (07:45)
[2019-02-20] MEDS: Venlafaxine EXT RELEASE CAP* 75 MG PO SCH (07:46)
[2019-02-20] MEDS: Cetirizine* 10 MG TAB PO SCH (07:46)
[2019-02-20] MEDS: Furosemide TAB* 40 MG PO SCH (07:46)
[2019-02-20] MEDS: risperiDONE-M * 1 MG TAB.ORADIS PO PRN (07:46)
[2019-02-20] MEDS: Multivitamins/Minerals TAB PO SCH (07:46)
[2019-02-20] MEDS: LORazepam TAB(*) 1 MG PO PRN (07:46)
[2019-02-20] MEDS: Albuterol HFA INHALER* 8 gm MDI INH PRN (07:50)
[2019-02-20] MEDS: Docusate CAP* 100 MG PO SCH (07:51)
--- NOTE | 2019-02-20 23:50 | DS ---
Amended report to enter cosigning physician. CC: [facility], attention, Dr. Collazo; Dr. Ronaldo Joseph * DISCHARGE SUMMARY: DATE OF ADMISSION: 01/29/19 DATE OF DISCHARGE: 02/20/19 PROVIDER: Brittanie Alexis NP in Psychiatry. SUPERVISING PHYSICIAN: Dr. Rafita George.* (DICTATED BY BRITTANIE ALEXIS NP) DIAGNOSIS: Schizoaffective disorder, bipolar type. CONDITION AT THE TIME OF DISCHARGE: Mildly improved, no longer clearly psychotic, currently manic. She is stable. She enjoyed participating in groups and was very social with peers, although that social behavior was not always welcomed by others. Her family is very concerned about her and is agreeable to her being discharged to the [facility]. She has progressed well here psychiatrically, tolerating new medications including clozapine well, yet she is still significantly symptomatic. She is being transferred to [facility]. MENTAL STATUS EXAM: At the time of discharge; Una is calm, cooperative, and makes good eye contact. She is alert and oriented x4, although she is sleepy, related to being medicated for transport to [facility]. Her grooming is adequate. Her speech pace is slower. Though processes are logical. She is not obviously psychotic. She may be delusional. She denies AH, VH, SI, and HI. Her insight and judgement are fair to poor and she states she is willing to followup and go to the [facility]. DISCHARGE INSTRUCTIONS TO THE PATIENT: A. Medications: 1. Albuterol 1 puffs q.2 hours p.r.n. shortness of breath or wheezing. 2. Abilify Maintena 400 mg q.28 days, most recent administration 02/14/19. Next due date is 03/14/19. 3. Zyrtec 10 mg. 4. Vitamin D 1000 units daily. 5. Clozapine 100 mg b.i.d. 6. Colace 100 mg b.i.d. 7. Ferrous sulfate 325 mg daily. 8. Lasix 40 mg at 0800 and 1700 hours. 9. Hydroxyzine 50 mg q.6 hours p.r.n. anxiety. 10. Ibuprofen 800 mg q.8 hours p.r.n. pain. 11. Lorazepam 2 mg q.6 hours p.r.n. anxiety or agitation. 12. Lorazepam 1 mg scheduled at bedtime. 13. Meclizine 25 mg b.i.d. 14. Risperdal M-tab 2 mg q.6 hours p.r.n. agitation, anxiety, psychosis. 15. Saliva substitute. 16. Venlafaxine XR 150 mg daily. B. Diet is regular. C. Activities as tolerated. Una is a nonsmoker. There are no studies pending at the time of discharge. D. Followup care. Una is being discharged to [facility] and is being transported at 8 a.m. on Tuesday02/20/19. She also is recommended to follow up with her primary care physician, Dr. Ronaldo Joseph within 30 days of discharge from [facility]. E. Disposition. She is being sent to [facility] for a longer term care. F. Substance abuse followup is not indicated. HOSPITAL COURSE: Part A: Chief Complaint: "I take all my meds, I am with the ACT team." The patient is a 58-year-old formerly white female with a history of schizoaffective disorder who arrives brought in by ambulance and is here on a voluntary status after coming to the emergency department for the 3rd time in a week being disorganized, having auditory hallucinations, and many somatic complaints. Una is disorganized. She upon interview denies having auditory hallucinations , but does have speech latencies. She is in emotional control and has somatic complaints that may or may not be delusional; for example, she states that she has urinary urgency and incontinence at her home. She did in fact urinate in bed stating it was too difficult for her to get out of bed. At this time, however, she is not having any incontinence problems and although she moved slowly due to having 2 knee replacements, she is doing well and toileting herself. She also complains of having heavy menstrual bleeding. At this time, during the interview, she is not experiencing that problem; although later in the day she was found to have a stain on the back of her dress and some kind of colored discharge on the pad in her under pants. 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 Nevertheless, the heavy menstrual bleeding complaint does appear to be delusional. She has 3 daughters and a son. Her daughter stated that she is delusional and at times cannot walk or do anything for herself so she states; but in fact she can. She states that she is unsafe and cannot help herself. She apparently urinates on chairs and in beds at home and she cannot transfer herself. Una also states that there is a man at [employer] who she is in love with who is with children. His name is Gregory. Una states that Gregory is in love with her and they are going to be . Una stated to me and to Niki Jarquin LCSW that Gregory is aware of this amorous interest and he would also like to get to her, this apparently is not based in reality. At this point, Una has some bizarre statements, but upon interview is very different than she was in her presentation in the emergency department where she was labile, talking to herself, and behaving in a bizarre fashion. At this time she seems to be quite in control of herself and expressing her desire to comply with requests very clearly. Part B: Psychiatric treatment was rendered. Una was admitted to the adult behavioral unit and placed on q.15 minute checks for safety. She did well on the unit, enjoying her time here. She enjoyed going to groups and interacting with peers. She did tolerate changes to her medications including the addition of clozapine. She also tolerated the early administration of Abilify Maintena. She tolerated the reduction in Effexor by 75 mg. It should be noted that her hemoglobin A1c is 6.0, her triglycerides are 86, cholesterol 164, LDL cholesterol 96 and HDL cholesterol 40.6. TSH is 0.67. Over the course of Una's admission, it became unclear what medications Una is adherent to in the outpatient setting despite her working with the ACT team. While she was here she agreed to take her oral medications and her physical needs including what turned out to be a non-delusional belief in vaginal bleeding was attended to. Una was titrated up on clozapine starting at 25 mg b.i.d., increasing approximately every 3 days by 25 mg until she reached the dose of 100 mg b.i.d. Blood draws and REMS were dealt with through the hospital. The last blood draw was on 02/11/19. A referral to State was started on 02/14/19. Abilify Maintena was injected on 02/14/19 (it was due on 02/20/19), clozapine 200 mg was reached on the same day, and we investigated the use of past mood stabilizers. Una has not agreed to take a mood stabilizer. She states that Depakote makes her hair fall out and that lithium made her "thirsty and salty." It became clear as her psychosis dwindled that waldo was left underneath the psychotic behavior and thoughts. Because of her declination to take a mood stabilizer on 02/16/19, she was not pushed into that decision as she was going to be discharged to [facility] on 02/20/19. There were no medication changes done on . She did well through the weekend fine and was doing well on the afternoon of 02/19/19. Una is future oriented and pleasant to talk to. She was discharged by ambulance to [facility]. I spoke with Dr. Collazo at [facility] and explained the choices that were made throughout Una's stay. BRITTANIE ALEXIS, DANY [id number]/CPS #: [id number]
== END 2019-02-20 08:45 | disposition short-term general hospital (02) | DRG 885 ==
LOC: ED 10:12 → BSU 14:29
PROVIDERS: ADMIT Psychiatry & Neurology Psychiatry; ATTEND Psychiatry & Neurology Psychiatry
PROC: GZHZZZZ Group Psychotherapy (ICD-10-PCS; principal; 2019-02-02)
DX: F25.0 Schizoaffective disorder, bipolar type (principal); Z68.41 Body mass index [BMI] 40.0-44.9, adult; Z96.653 Presence of artificial knee joint, bilateral; F41.9 Anxiety disorder, unspecified; J45.909 Unspecified asthma, uncomplicated; R40.2412 Glasgow coma scale score 13-15, at arrival to emergency department; E66.9 Obesity, unspecified; R32 Unspecified urinary incontinence; N93.9 Abnormal uterine and vaginal bleeding, unspecified; G47.33 Obstructive sleep apnea (adult) (pediatric); D64.9 Anemia, unspecified; N84.0 Polyp of corpus uteri; Z87.891 Personal history of nicotine dependence; Z91.030 Bee allergy status; Z91.5 Personal history of self-harm; Z86.14 Personal history of Methicillin resistant Staphylococcus aureus infection; Z88.8 Allergy status to other drugs, medicaments and biological substances; Z91.018 Allergy to other foods; Z87.440 Personal history of urinary (tract) infections; Z81.8 Family history of other mental and behavioral disorders; Z80.3 Family history of malignant neoplasm of breast; Z80.0 Family history of malignant neoplasm of digestive organs
CPT/HCPCS: 36415; 76830; 80053; 80061; 80320; 80329; 83036; 83735; 84100; 84443; 84702; 85025; 85027; 85610; 85730; 86703; 90853; 93005; 99222; 99231; 99232; 99233; 99238; 99284; A9270-GY; G0480; G8978-GP-CH; G8979-GP-CH; G8980-GP-CH; G8987-GO-CH; G8988-GO-CH; G8989-GO-CH